=== PATIENT | female | born 1940 | race Caucasian/White ===

== ENCOUNTER → 2017-10-22 | Outpatient (CLI) | payer MEDICARE, BC, OTHER | LOC: M RAD 13:30 | DX: J34.2 Deviated nasal septum (principal) | CPT/HCPCS: 70486 ==

== ENCOUNTER → 2019-02-15 | Outpatient (CLI) | payer MEDICARE, BC, OTHER ==
--- NOTE | 2019-02-15 10:51 | REP ---
Clinical: Lung screening. History smoking. Comparison: None Technique: Axial low-dose noncontrast images from the thoracic inlet to the upper abdomen using lung screening technique. Findings: The lung green are well-aerated with very minimal scattered basilar scarring suggested as well as a very small non solid densities in the periphery of the right base up to 4 mm. No consolidation, significant nodule or mass lesion is appreciated. No pleural effusion/reaction or pneumothorax. Tracheobronchial tree is patent. Mediastinum demonstrates mild atherosclerotic changes of the coronary arteries without cardiomegaly. Impression: Lung-RADS category II. Minimal presumed basilar scarring and very small subpleural non solid densities. Management recommendations include annual low-dose CT evaluation. Electronically Signed by Be Markham MD 02/15/2019 10:42 A
== END ==
LOC: M RAD 09:42
PROVIDERS: ATTEND Internal Medicine
DX: Z12.2 Encounter for screening for malignant neoplasm of respiratory organs (principal); F17.210 Nicotine dependence, cigarettes, uncomplicated; R91.8 Other nonspecific abnormal finding of lung field; I25.10 Atherosclerotic heart disease of native coronary artery without angina pectoris

== ENCOUNTER 2020-09-18 14:11 | Inpatient (IN) | payer MEDICARE, BC, OTHER ==
[~2020-09-18] VITALS: Ht 157.5 cm; Wt 50.0 kg
[2020-09-18] MEDS ORDERED: NS 1,000 ML IV SCH (14:45)
[2020-09-18] MEDS ORDERED: ONDANSETRON 4MG/2ML VIAL IV ONE (14:45)
[2020-09-18] MEDS: MORPHINE 2 MG/ML 1ML VIAL (J2270) IV PRN ×2 (14:59→15:46)
[2020-09-18 15:07] LABS: HEMATOCRIT 43.1 % (36.0-47.0); HEMOGLOBIN 14.1 g/dl (12.0-15.5); MEAN CORPUSCULAR HGB CONC 32.7 g/dl (32.0-36.5); MEAN CORPUSCULAR VOLUME 88.7 fl (80.0-96.0); PLATELET COUNT, AUTOMATED 261 10^3/uL (150-450); RED BLOOD COUNT 4.86 10^6/uL (4.00-5.40); WHITE BLOOD COUNT 6.6 10^3/uL (4.0-10.0)
[2020-09-18 15:19] LABS: INR 1.01; PROTHROMBIN TIME 13.5 SECONDS (12.5-14.3)
[2020-09-18 15:20] LABS: PARTIAL THROMBOPLASTIN TIME 27.3 SECONDS (24.2-38.5)
--- NOTE | 2020-09-18 15:32 | REP ---
INDICATION: trauma. COMPARISON: None. TECHNIQUE: AP view of the pelvis is performed as well as AP and cross-table lateral views left hip. FINDINGS: Left femoral neck fracture is visualized with angulation and displacement. There are mild arthritic changes at both hip joints. There are scattered vascular calcifications in the soft tissues. IMPRESSION: Left femoral neck fracture. <Electronically signed by Chad Keenan > 09/18/20 0213
[2020-09-18] MEDS ORDERED: MONT5TAB2 PO (15:33)
[2020-09-18] MEDS ORDERED: METF500T13 PO (15:33)
[2020-09-18] MEDS ORDERED: HYDR12CA PO (15:33)
[2020-09-18] MEDS ORDERED: SOLI5TAB PO (15:33)
[2020-09-18] MEDS ORDERED: VITATAB74 PO (15:33)
[2020-09-18] MEDS ORDERED: MAGN200T10 PO (15:33)
[2020-09-18] MEDS ORDERED: ECOT81TA5 PO (15:33)
[2020-09-18] MEDS ORDERED: ACET650T61 PO (15:33)
[2020-09-18] MEDS ORDERED: LEVOTAB10 PO (15:33)
[2020-09-18] MEDS ORDERED: SOLI10TA PO (15:33)
--- NOTE | 2020-09-18 15:33 | REP ---
INDICATION: trauma COMPARISON: None. TECHNIQUE: AP and lateral left femur. FINDINGS: There is a left femoral neck fracture with angulation and displacement. No other acute fracture or dislocation is seen. IMPRESSION: Left femoral neck fracture. <Electronically signed by Chad Keenan > 09/18/20 [id number]
--- NOTE | 2020-09-18 15:34 | REP ---
INDICATION: pre-op. COMPARISON: None. TECHNIQUE: SINGLE PORTABLE AP VIEW OF THE CHEST WAS PERFORMED. FINDINGS: There is no acute infiltrate. There is mild cardiomegaly. There is calcification and tortuosity of the thoracic aorta. The mediastinal silhouette is otherwise unremarkable. IMPRESSION: NO ACUTE PULMONARY DISEASE. <Electronically signed by Chad Keenan > 09/18/20 [id number]
[2020-09-18 15:36] LABS: RSV AMPLIFICATION NEGATIVE (NEGATIVE)
[2020-09-18 15:42] LABS: BLOOD UREA NITROGEN 18 MG/DL (7-18); CALCIUM LEVEL 9.9 MG/DL (8.8-10.2); CARBON DIOXIDE LEVEL 28 MEQ/L (21-32); CHLORIDE LEVEL 102 MEQ/L (98-107); CK-MB VALUE MASS 1.8 NG/ML (<3.6); CPK CREATINE PHOSPHOKINASE 158 U/L (26-192); CREATININE FOR GFR 0.98 MG/DL (0.55-1.30); GLOMERULAR FILTRATION RATE 58.4 (>39); GLUCOSE, FASTING 98 MG/DL (70-100); MB/CK RELATIVE INDEX 1.14 (< OR =4); POTASSIUM SERUM 4.9 MEQ/L (3.5-5.1); SODIUM LEVEL 136 MEQ/L (136-145); TROPONIN I < 0.02 NG/ML (< 0.10)
[2020-09-18] MEDS ORDERED: GLUCOSE 4GM CHEW TABLET PO PRN (16:30)
[2020-09-18] MEDS ORDERED: GLUCAGON INJ 1MG VIAL SC PRN (16:30)
[2020-09-18] MEDS ORDERED: HumaLOG INSULIN (NovoLOG) PER UNIT SC SCH (16:30)
[2020-09-18] MEDS ORDERED: DEXTROSE 50% 50 ML SYRINGE IV PRN (16:30)
[2020-09-18] MEDS ORDERED: MORPHINE 2 MG/ML 1ML VIAL (J2270) IV PRN ×3 (16:30→22:00)
[2020-09-18] MEDS ORDERED: ALBUTEROL SULFATE 2.5 MG/0.5 ML INH NEB SOLN NEB PRN (16:30)
[2020-09-18] MEDS ORDERED: MORPHINE 4 MG/ML 1ML VIAL/SYRINGE (J2270) IV PRN (16:30)
--- OUTSIDE RECORDS SUMMARY | 2020-09-18 16:39 | CCD | Continuity of Care Document ---
Author Author Lindy CORONA Organization Unknown Address [address] [facility] [address] [place] [address] Phone [phone] Care Team Providers Care Ld Teacher Name Role Phone Zakiya Corona DO AUTM Unavailable Problems Active Problems Provider Date Type 2 diabetes mellitus Zakiya Corona DO Onset: 03/03/20 12 Hypertensive heart disease without congestive heart failure Zakiya Corona DO Onset: 03/03/2012 Hyperlipidemia Zakiya Corona DO Onset: 03/03/2012 Social History Type Date Description Comments Sex Unknown ETOH Use Rarely consumes wine Tobacco Use Start: Unknown Patient is a current smoker, smo kes every day 1 PPD X 45 YRS Allergies, Adverse Reactions, Alerts Description No Known Drug Allergies Medications Active Medications SIG Qnty Indications Ordering Provide r Date Solifenacin Succinate 10mg Tablets 1 by mouth every day 90tabs Zakiya Corona DO 02/25/2020 Shingrix 50mcg/0.5ML Suspension Re c administer 0.5 milliliters intramuscular, repeat in 2 to 6 months 2units Zakiya Corona DO 07/08/2019 Tylenol 8 Hour Arthritis Pain 650mg Tablets ER 1 by mouth as needed every 8 hours 90tabs Zakiya Corona DO 08/25/2018 Magnesium Oxide 400mg Tablets 1 by mouth every day 30tabs Zakiya Corona DO 04/15/2018 Singulair 10mg Tablets take one tablet by mouth at bedtime 90tabs Zakiya Corona DO 11/07/2017 Asc[employer]ia Autod[employer] Test Disk test daily dx: e11.9 100units Zakiya Corona DO 03/06/2017 Hydrochlorothiazide 12.5mg Capsule s take one capsule by mouth every day 90caps Zakiya Corona DO 0 11/27/2015 Aspirin 325mg Tablets 1 po qd Zakiya CoronaDO 09/06/2013 Metformin HCL 500mg Tablets take one tablet by mouth twice a day 180tabs Alyce Carvalho 11/13/2012 Vitamin D-3 1000Unit Tablets 2 po qd Zakiya CoronaDO 07/15/2012 Fluocinonide 0.05% Solution apply every day as needed 60ml Zakiya CoronaDO 07/14/2012 Levocetirizine Dihydrochloride 5mg Tablets take one tablet by mouth at bedtime 90tabs Zakiya Corona,DO 07/14/2012 Glucometer Misc use as direc julia 1units Zakiya Corona,DO 10/29/2011 Lancets Misc us e bid or as directed dx:250.00 100unradha Corona,DO 10/29/[address] take one capsule by mouth every day 90caps Zakiya CoronaDO 0000 Biotin Unknown History Medications Solifenacin Succinate 5mg Tablets 2 by mouth every day 60tabs Zakiya Corona DO 01/11/2020 - 05/2020 Medications Administered in Office Medication SIG Qnty Indications Ordering Provider Date Administration Of Flu Vaccine Inj ection Zakiya Corona,DO 06/27/2020 Administration Of Flu Vaccine Inj ection Zakiya Corona,DO 07/08/2019 Immunizations CPT Code Status Date Vaccine Lot # [id number] Given 06/27/2020 Influenza Vaccin e Quadrivalent Preser/Antibiotic Free Im Use [id number] Given 07/11/2019 Prevnar 13 [id number] Given 07/08/2019 Influenza Vaccin e Quadrivalent Preser/Antibiotic Free Im Use [id number] [id number] Given 04/15/2018 Pneumovax 23 [id number] Refused 06/22/2018 Influenza Virus Vaccine, Quadrivalent ([id number]), Derived From Cell Vital Signs Date Vital Result Comment 06/27/2020 10:43am BP Systolic 160 mmHg BP Diastolic 88 mmHg Height 62.5 inches 5'2.50" Weight 110.38 lb BMI (Body Mass Index) 19.9 kg/m2 01/11/2020 10:35am BP Systolic 132 mmHg BP Diastolic 84 mmHg Heart Rate 78 /min Height 62.5 inches 5'2.50" Weight 121.00 lb O2 % BldC Oximetry 97 % RM Air BMI (Body Mass Index) 21.8 kg/m2 Results Test Acquired Date Facility Test Result H/L Range Note Complete Blood Count 06/26/2020 [facility] Byproducts Extractor: [place] [address] [phone] WBC 4.8 x10*3/UL 4.1 - 10.9 RBC 4.53 x10*6/UL 4.20 - 6.30 Hemoglobin 13.4 g/dL 12.0 - 18.0 Hematocrit 39.0 % 37.0 - 51.0 MCV 86.1 fL 80.0 - 97.0 MCH 29.6 pg 26.0 - 32.0 MCHC 34.4 g/dL 31.0 - 38.0 RDW 13.3 % 11.6 - 13.7 PLT 285 x10*3/UL 140 - 440 MPV 7.8 FL 7.8 - 11.0 Lymph % 29.5 % 10.0 - 58.5 Mid % 7.8 % 1.7 - 9.3 Neut % 62.7 % 37.0 - 92.0 Lymph # 1.4 x10*3/UL 0.6 - 4.1 Mid # 0.4 x10*3/UL 0.1 - 0.6 Neut # 3.0 x10*3/UL 2.0 - 7.8 A1c 06/26/2020 [facility] Byproducts Extractor: [place] [address] [phone] Hba1c 5.9 % High <5.7 1 Est Avg Glucose 123 mg/dL High 60 - 110 Comprehensive Chem Profile 06/26/2020 [facility] Byproducts Extractor: [place] [address] [phone] Glucose 89 mg/dL 74 - 99 2 BUN 18 mg/dL 7 - 18 Creatinine 1.0 mg/dL 0.6 - 1.3 Sodium 142 mEq/L 136 - 145 Potassium 4.5 mEq/L 3.5 - 5.1 Chloride 102 mEq/L 98 - 107 Carbon Dioxide 32 mEq/L 21 - 32 Calcium 9.8 mg/dL 8.5 - 10.1 Alk. Phosphatase 74 mg/dL 46 - 116 Total Bilirubin 0.3 mg/dL 0.2 - 1.0 Ast (Sgot) 14 U/L Low 15 - 37 Alt (SGPT) 11 U/L Low 12 - 78 Albumin 4.0 g/dL 3.4 - 5.0 Total Protein 7.4 g/dL 6.4 - 8.2 A/G Ratio 1.18 CALC 1.00 - 1.90 GFR 54 mL/min Low >60 GFR >= 60 mL/min >60 3 Complete Blood Count 01/07/2020 [facility]lo Byproducts Extractor: [place] [address] [phone] WBC 5.6 x10*3/UL 4.1 - 10.9 RBC 4.38 x10*6/UL 4.20 - 6.30 Hemoglobin 12.4 g/dL 12.0 - 18.0 Hematocrit 37.4 % 37.0 - 51.0 MCV 85.4 fL 80.0 - 97.0 MCH 28.3 pg 26.0 - 32.0 MCHC 33.2 g/dL 31.0 - 38.0 RDW 14.0 % High 11.6 - 13.7 PLT 276 x10*3/UL 140 - 440 MPV 8.0 FL 7.8 - 11.0 Lymph % 28.3 % 10.0 - 58.5 Mid % 8.2 % 1.7 - 9.3 Neut % 63.5 % 37.0 - 92.0 Lymph # 1.5 x10*3/UL 0.6 - 4.1 Mid # 0.6 x10*3/UL 0.1 - 0.6 Neut # 3.5 x10*3/UL 2.0 - 7.8 Comprehensive Chem Profile 01/07/2020 [facility] Byproducts Extractor: [place] [address] [phone] Glucose 108 mg/dL High 74 - 99 4 BUN 21 mg/dL High 7 - 18 Creatinine 1.4 mg/dL High 0.6 - 1.3 Sodium 145 mEq/L 136 - 145 Potassium 4.4 mEq/L 3.5 - 5.1 Chloride 105 mEq/L 98 - 107 Carbon Dioxide 31 mEq/L 21 - 32 Calcium 10.0 mg/dL 8.5 - 10.1 Alk. Phosphatase 75 mg/dL 46 - 116 Total Bilirubin 0.3 mg/dL 0.2 - 1.0 Ast (Sgot) 15 U/L 15 - 37 Alt (SGPT) 14 U/L 12 - 78 Albumin 3.9 g/dL 3.4 - 5.0 Total Protein 7.4 g/dL 6.4 - 8.2 A/G Ratio 1.11 CALC 1.00 - 1.90 GFR 36 mL/min Low >60 GFR 44 mL/min Low >60 5 Lipid Profile 01/07/2020 [facility] Byproducts Extractor: [place] [address] [phone] Cholesterol 222 mg/dL High 131 - 200 Triglycerides 163 mg/dL High 30 - 150 HDL Cholesterol 47 mg/dL 35 - 60 LDL (Calculated) 142 CALC 50 - 159 Laboratory test finding 01/07/2020 [facility] Byproducts Extractor: [place] [address] [phone] Thyroid Stimulating Hormone 0.90 uIU/mL 0.3 6 - 3.74 1 Lab Result Notes: Pre-Diabetes 5.7 - 6.4 % Diabetes = or > 6.5% 2 100-125 mg/dL PRE-DIABET ES/FASTING >126 mg/dL DIABETES/FASTING 3 CHRONIC KIDNEY DISEASE STAGI NG PER NKF STAGE I & II GFR >= 60 NORMAL TO MILDLY DECREASED STAGE III GFR 30-59 MODERATELY DECREASED STAGE IV GFR 15-29 SEVERELY DECREASED STAGE V GFR <15 VERY LITTLE GFR LEFT ESRD GFR <15 ON [employer] MATE 4 100-125 mg/dL PRE-DIABET ES/FASTING >126 mg/dL DIABETES/FASTING 5 CHRONIC KIDNEY DISEASE STAGI NG PER NKF STAGE I & II GFR >= 60 NORMAL TO MILDLY DECREASED STAGE III GFR 30-59 MODERATELY DECREASED STAGE IV GFR 15-29 SEVERELY DECREASED STAGE V GFR <15 VERY LITTLE GFR LEFT ESRD GFR <15 ON [employer] MATE Procedures Date Code Description Status 02/07/2020 [id number] Mammogram Completed 04/24/2018 [id number] Mammogram Completed 07/21/2012 [id number] Bone Mineral Density Test Comple [facility] 03/11/2012 [id number] Diabetic Retinal Eye Exam Comple 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 M54.16 Radiculopathy, lumbar region R41.81 Age-related cognitive declin e Z13.89 Encounter for screening for other disorder Z23 Encounter for immunization Office Visit 01/11/2020 10:40a [facility] P[facility]ov[facility] Corona ,DO E11.9 Type 2 diabetes mellitus without complications I10 Essential (primary) hyperten shanika F17.210 Nicotine dependence, cigaret jamie, uncomplicated E78.5 Hyperlipidemia, unspecified M17.0 Bilateral primary osteoarthr itis of knee I83.93 Asymptomatic varicose veins of bilateral lower extremities M25.511 Pain in right shoulder Assessments Date Code Description Provider 06/27/2020 M17.11 Unilateral primary osteoarthriti s, right knee Zakiya Corona,DO 06/27/2020 E11.9 Type 2 diabetes mellitus without complications Zakiya Corona,DO 06/27/2020 I10 Essential (primary) hypertension Zakiya Corona,DO 06/27/2020 F17.210 Nicotine dependence, cigarettes, uncomplicated Zakiya Corona,DO 06/27/2020 E78.5 Hyperlipidemia, unspecified Avni Corona,DO 06/27/2020 I83.93 Asymptomatic varicose veins of b ilateral lower extremities Zakiya Corona,DO 06/27/2020 M54.16 Radiculopathy, lumbar region Lara Corona,DO 06/27/2020 R41.81 Age-related cognitive decline Marian Corona,DO 06/27/2020 Z13.89 Encounter for screening for othe r disorder Zakiya Corona,DO 06/27/2020 Z23 Encounter for immunization Zakiya Corona,DO 06/26/2020 E11.9 Type 2 diabetes mellitus without complications Zakiya Corona,DO 06/26/2020 E11.9 Type 2 diabetes mellitus without complications Lab Schedule 06/26/2020 I10 Essential (primary) hypertension Zakiya Corona,DO 06/26/2020 I10 Essential (primary) hypertension Lab Schedule 01/11/2020 E11.9 Type 2 diabetes mellitus without complications Zakiya Corona,DO 01/11/2020 I10 Essential (primary) hypertension Zakiya Corona,DO 01/11/2020 F17.210 Nicotine dependence, cigarettes, uncomplicated Zakiya Corona,DO 01/11/2020 E78.5 Hyperlipidemia, unspecified Avni shilpi Corona,DO 01/11/2020 M17.0 Bilateral primary osteoarthritis of knee Zakiya oCrona,DO 01/11/2020 I83.93 Asymptomatic varicose veins of b ilateral lower extremities Zakiya Corona,DO 01/11/2020 M25.511 Pain in right shoulder Zakiya John bobo,DO 01/07/2020 I10 Essential (primary) hypertension Zakiya Jcarlos,DO 01/07/2020 I10 Essential (primary) hypertension Lab Schedule 01/07/2020 E11.9 Type 2 diabetes mellitus without complications Zakiya Corona,DO 01/07/2020 E11.9 Type 2 diabetes mellitus without complications Lab Schedule 01/07/2020 E78.5 Hyperlipidemia, unspecified Avni shilpi Jcarlos,DO 01/07/2020 E78.5 Hyperlipidemia, unspecified Lab Schedule Plan of Treatment Future Appointment(s):* 12/27/2020 10:40 am - Lab Schedule at [facility] * 12/28/2020 10:40 am - Zakiya Corona DO at [facility] 06/27/2020 - Zakiya Corona DO* M17.11 Unilateral primary osteoarthritis, right knee * E11.9 Type 2 diabetes mellitus without complications * I10 Essential (primary) hypertension * F17.210 Nicotine dependence, cigarettes, uncomplicated * E78.5 Hyperlipidemia, unspecified * I83.93 Asymptomatic varicose veins of bilateral lower extremities * M54.16 Radiculopathy, lumbar region * R41.81 Age-related cognitive decline * Z13.89 Encounter for screening for other disorder * Z23 Encounter for immunization Functional Status Description No Information Available Mental Status Description No Information Available Referrals Refer to Reason for Referral Status Appt Date [facility] CONSULT FOR RT SHOULDER PAIN Cl osed 01/31/2020 [address] [id number] [phone]
--- OUTSIDE RECORDS SUMMARY | 2020-09-18 16:39 | CCD | Continuity of Care Document ---
Author Author Lindy CORONA Organization Unknown Address [address] [facility] [address] [place] [address] Phone [phone] Care Team Providers Care Retail Aide Name Role Phone Zakiya Corona DO AUTM [...] Aspirin 325mg Tablets 1 po qd Zakiya CroonaDO 09/06/2013 Metformin HCL 500mg Tablets take one tablet by mouth twice a day 180tabs Alyce Carvalho 11/13/2012 Vitamin D-3 1000Unit Tablets 2 po qd Zakiya CoronaDO 07/15/2012 Fluocinonide 0.05% Solution apply every day as needed 60ml Zakiya CoronaDO 07/14/2012 Levocetirizine Dihydrochloride 5mg Tablets take one tablet by mouth at bedtime 90tabs Zakiya CoronaDO 07/14/2012 Glucometer Misc use as direc julia 1units Zakiya Corona,DO 10/29/2011 Lancets Misc us e bid or as directed dx:250.00 100unradha CoronaDO 10/29/[address] take one capsule by mouth every day 90caps Zakiya CoronaDO 0000 Biotin Unknown History Medications Solifenacin Succinate 5mg Tablets 2 by mouth every day 60tabs Zakiya Corona DO 01/11/2020 - 05/2020 Medications Administered in Office Medication SIG Qnty Indications Ordering Provider Date Administration Of Flu Vaccine Inj ection Zakiyashilpi CoronaDO 07/08/2019 Immunizations CPT Code Status Date Vaccine Lot # [id number] Given 06/27/2020 Influenza Vaccin e Quadrivalent Preser/Antibiotic Free Im Use [id number] [id number] Given 07/11/2019 Prevnar 13 85854 Given 07/08/2019 Influenza Vaccin e Quadrivalent Preser/Antibiotic Free Im Use [id number] Given 04/15/2018 Pneumovax 23 [id number] Refused 06/22/2018 Influenza Virus Vaccine, Quadrivalent (Cciiv4), [...] H/L Range Note Complete Blood Count 06/26/2020 [facility] Dental Laboratory Technician Apprentice: [place] [address] [phone] WBC 4.8 x10*3/UL 4.1 - 10.9 RBC [...] 3.0 x10*3/UL 2.0 - 7.8 A1c 06/26/2020 [facility] Dental Laboratory Technician Apprentice: [place] [address] [phone] Hba1c 5.9 % High <5.7 1 Est Avg Glucose 123 mg/dL High 60 - 110 Comprehensive Chem Profile 06/26/2020 [facility] Dental Laboratory Technician Apprentice: [place] [address] [phone] Glucose 89 mg/dL 74 - 99 2 [...] mL/min >60 3 Complete Blood Count 01/07/2020 [facility] Dental Laboratory Technician Apprentice: [place] [address] [phone] WBC 5.6 x10*3/UL 4.1 - 10.9 RBC [...] 2.0 - 7.8 Comprehensive Chem Profile 01/07/2020 [facility] Dental Laboratory Technician Apprentice: [place] [address] [phone] Glucose 108 mg/dL High 74 - 99 [...] mL/min Low >60 5 Lipid Profile 01/07/2020 [facility] Laboratory Technician Apprentice: [place] [address] [phone] Cholesterol 222 mg/dL High 131 - 200 Triglycerides 163 mg/dL High 30 - 150 HDL Cholesterol 47 mg/dL 35 - 60 LDL (Calculated) 142 CALC 50 - 159 Laboratory test finding 01/07/2020 [facility] Dental Laboratory Technician Apprentice: [place] [address] [phone] Thyroid Stimulating Hormone 0.90 uIU/mL 0.3 6 [...] LITTLE GFR LEFT ESRD GFR <15 ON [employer] CONSULT[employer] 4 100-125 mg/dL PRE-DIABET ES/FASTING >126 mg/dL DIABETES/FASTING 5 CHRONIC KIDNEY DISEASE STAGI NG PER NKF STAGE I & II GFR >= 60 NORMAL TO MILDLY DECREASED STAGE III GFR 30-59 MODERATELY DECREASED STAGE IV GFR 15-29 SEVERELY DECREASED STAGE V GFR <15 VERY LITTLE GFR LEFT ESRD GFR <15 ON [employer] CONSULTANT Procedures Date Code Description Status 02/07/2020 [id number] Mammogram Completed 04/24/2018 [id number] Mammogram Completed 07/21/2012 [id number] Bone Mineral Density Test [facility] 03/11/2012 [id number] Diabetic Retinal Eye Exam [facility] 10/04/2011 [id number] Mammogram Completed 05/20/2007 [id number] Bone Mineral Density Test [facility] 09/08/2003 [id number] Colonoscopy Completed Medical Devices Description No Information Available Encounters Type Date Location Provider Dx Diagnosis Office Visit 01/11/2020 10:40a [facility] Zakiya Corona ,DO E11.9 Type 2 diabetes mellitus [...] Type 2 diabetes mellitus without complications Zakiya Jcarlos,DO 06/27/2020 I10 Essential (primary) hypertension Zakiya Corona,DO 06/27/2020 F17.210 Nicotine dependence, cigarettes, uncomplicated Zakiya Corona,DO 06/27/2020 E78.5 Hyperlipidemia, unspecified Avni a Jcarlos,DO 06/27/2020 I83.93 Asymptomatic varicose veins of b ilateral lower extremities Zakiya Corona,DO 06/27/2020 M54.16 Radiculopathy, lumbar region Bermudez Jcarlos,DO 06/27/2020 R41.81 Age-related cognitive decline Marian archie Corona,DO 06/26/2020 E11.9 Type 2 diabetes mellitus [...] Zakiya Corona,DO 01/11/2020 E78.5 Hyperlipidemia, unspecified Avni a Jcarlos,DO 01/11/2020 M17.0 Bilateral primary osteoarthritis of knee Zakiya Jcarlos,DO 01/11/2020 I83.93 Asymptomatic varicose veins of b ilateral lower extremities Zakiyashilpi Corona,DO 01/11/2020 M25.511 Pain in right shoulder Zakiya bobo DO 01/07/2020 I10 Essential (primary) hypertension Zakiya Corona DO 01/07/2020 I10 Essential (primary) hypertension Lab Schedule 01/07/2020 E11.9 Type 2 diabetes mellitus without complications Zakiya Corona DO 01/07/2020 E11.9 Type 2 diabetes mellitus without complications Lab Schedule 01/07/2020 E78.5 Hyperlipidemia, unspecified Avni Corona DO 01/07/2020 E78.5 Hyperlipidemia, unspecified Lab Schedule Plan of Treatment Future Appointment(s):* 12/27/2020 10:40 am - Lab Schedule at [facility] * 12/28/2020 10:40 am - Zakiya Corona DO at [facility] 06/27/2020 - Zakiya Corona DO* M17.11 Unilateral primary osteoarthritis, right knee * E11.9 Type 2 diabetes mellitus without complications * I10 Essential (primary) hypertension * F17.210 Nicotine dependence, cigarettes, uncomplicated * E78.5 Hyperlipidemia, unspecified * I83.93 Asymptomatic varicose veins of bilateral lower extremities * M54.16 Radiculopathy, lumbar region * R41.81 Age-related cognitive decline Functional Status Description No Information Available Mental Status Description No Information Available Referrals Refer to Reason for Referral Status Appt Date [facility] CONSULT FOR RT SHOULDER PAIN Cl osed 01/31/2020 [address] [place] [address] [phone]
--- OUTSIDE RECORDS SUMMARY | 2020-09-18 16:39 | CCD | Continuity of Care Document ---
Author Author Lab Schedule, Lindy Diallo Organization Unknown Address [address] [address] Phone Unavailable Care Team Providers Care Hat Former Name Role Phone Zakiya Garber DO AUTM Unavailable Problems Active Problems Provider Date Type 2 diabetes mellitus Zakiya Garber DO Onset: 03/03/20 12 Hypertensive heart disease without congestive heart failure Zakiya Garber DO Onset: 03/03/2012 Hyperlipidemia Zakiya Garber DO Onset: 03/03/2012 Social History Type Date [...] 1 by mouth every day 90tabs Zakiya Garber DO 02/25/2020 Shingrix 50mcg/0.5ML Suspension Re c administer 0.5 milliliters intramuscular, repeat in 2 to 6 months 2units Zakiya Garber DO 07/08/2019 Tylenol 8 Hour Arthritis Pain 650mg Tablets ER 1 by mouth as needed every 8 hours 90tabs Zakiya Garber DO 08/25/2018 Magnesium Oxide 400mg Tablets 1 by mouth every day 30tabs Zakiya Garber DO 04/15/2018 Singulair 10mg Tablets take one tablet by mouth at bedtime 90tabs Zakiya Garber DO 11/07/2017 Ascensia Autodisc Test Disk test daily dx: e11.9 100units Zakiya Garber, 03/06/2017 Hydrochlorothiazide 12.5mg Capsule s take one capsule by mouth every day 90caps Zakiya Garber DO 0 11/27/2015 Aspirin 325mg Tablets 1 po qd Zakiya Garber DO 09/06/2013 Metformin HCL 500mg Tablets take one tablet by mouth twice a day 180tabs Alyce Carvalho 11/13/2012 Vitamin D-3 1000Unit Tablets 2 po qd Zakiya Garber DO 07/15/2012 Fluocinonide 0.05% Solution apply every day as needed 60ml Zakiya Garber DO 07/14/2012 Levocetirizine Dihydrochloride 5mg Tablets take one tablet by mouth at bedtime 90tabs Zakiya Garber DO 07/14/2012 Glucometer Misc use as direc julia 1unradha Garber,DO 10/29/2011 Lancets Misc us e bid or as directed dx:250.00 100unradha GarberDO 10/29/[address] take one capsule by mouth every day 90caps Zakiya GarberDO 00 /0000 Biotin Unknown History Medications Solifenacin Succinate 5mg Tablets 2 by mouth every day 60tabs Zakiya Garber DO 01/11/2020 - 05/2020 Medications Administered in Office Medication SIG Qnty Indications Ordering Provider Date Administration Of Flu Vaccine Inj ection Zakiya Garber DO 07/08/2019 Immunizations CPT Code Status Date Vaccine Lot # [id number] Given 06/27/2020 Influenza Vaccin e Quadrivalent Preser/Antibiotic Free Im Use [id number] Given 07/11/2019 Prevnar 13 52763 Given 07/08/2019 Influenza Vaccin e Quadrivalent Preser/Antibiotic Free Im Use [id number] [id number] Given 04/15/2018 Pneumovax 23 [id number] Refused 06/22/2018 Influenza Virus Vaccine, Quadrivalent (Cciiv4), [...] H/L Range Note Complete Blood Count 06/26/2020 [facility] Gas Turbine Assembler: [place] [address] [phone] WBC 4.8 x10*3/UL 4.1 - 10.9 RBC [...] 3.0 x10*3/UL 2.0 - 7.8 A1c 06/26/2020 [facility] , Gas Turbine Assembler: [place] [address] [phone] Hba1c 5.9 % High <5.7 1 Est Avg Glucose 123 mg/dL High 60 - 110 Comprehensive Chem Profile 06/26/2020 [facility] Gas Turbine Assembler: [place] [address] [phone] Glucose 89 mg/dL 74 - 99 2 [...] mL/min >60 3 Complete Blood Count 01/07/2020 [facility] ben[facility] diallo Gas Turbine Assembler: Dr Rohan Saldana [place], [place] [id number] [phone] WBC 5.6 x10*3/UL 4.1 - 10.9 RBC [...] 2.0 - 7.8 Comprehensive Chem Profile 01/07/2020 [facility] Gas Turbine Assembler: [place] [address] [phone] Glucose 108 mg/dL High 74 - 99 [...] mL/min Low >60 5 Lipid Profile 01/07/2020 [facility] Gas Turbine Assembler: Dr Rohan Saldana [place], [place] [id number] [phone] Cholesterol 222 mg/dL High 131 - 200 Triglycerides 163 mg/dL High 30 - 150 HDL Cholesterol 47 mg/dL 35 - 60 LDL (Calculated) 142 CALC 50 - 159 Laboratory test finding 01/07/2020 [facility] Gas Turbine Assembler: Dr Rohan Saldana [place], [place] [id number] [phone] Thyroid Stimulating Hormone 0.90 uIU/mL 0.3 6 [...] LITTLE GFR LEFT ESRD GFR <15 ON PATIENT ACCOUNT REPRESENTATIVE 4 100-125 mg/dL PRE-DIABET ES/FASTING >126 mg/dL DIABETES/FASTING 5 CHRONIC KIDNEY DISEASE STAGI NG PER NKF STAGE I & II GFR >= 60 NORMAL TO MILDLY DECREASED STAGE III GFR 30-59 MODERATELY DECREASED STAGE IV GFR 15-29 SEVERELY DECREASED STAGE V GFR <15 VERY LITTLE GFR LEFT ESRD GFR <15 ON PATIENT ACCOUNT REPRESENTATIVE Procedures Date Code Description Status 02/07/2020 [id number] Mammogram Completed 04/24/2018 [id number] Mammogram Completed 07/21/2012 [id number] Bone Mineral Density Test [facility]ple [facility] 03/11/2012 [id number] Diabetic Retinal Eye Exam [facility] 10/04/2011 [id number] Mammogram Completed 05/20/2007 [id number] Bone Mineral Density Test [facility] 09/08/2003 [id number] Colonoscopy Completed Medical Devices Description No Information Available Encounters Type Date Location Provider Dx Diagnosis Office Visit 01/11/2020 10:40a [facility] Zakiya Garber ,DO E11.9 Type 2 diabetes mellitus without complications I10 Essential (primary) hyperten shanika F17.210 Nicotine dependence, cigaret jamie, uncomplicated E78.5 Hyperlipidemia, unspecified M17.0 Bilateral primary osteoarthr itis of knee I83.93 Asymptomatic varicose veins of bilateral lower extremities M25.511 Pain in right shoulder Assessments Date Code Description Provider 06/27/2020 M17.11 Unilateral primary osteoarthriti s, right knee Zakiya Garber,DO 06/27/2020 E11.9 Type 2 diabetes mellitus without complications Zakiya Garber,DO 06/27/2020 I10 Essential (primary) hypertension Zakiya Garber,DO 06/27/2020 F17.210 Nicotine dependence, cigarettes, uncomplicated Zakiya Garber,DO 06/27/2020 E78.5 Hyperlipidemia, unspecified Avni a Jcarlos,DO 06/27/2020 I83.93 Asymptomatic varicose veins of b ilateral lower extremities Zakiya Garber,DO 06/27/2020 M54.16 Radiculopathy, lumbar region Bermudez ra Garber,DO 06/27/2020 R41.81 Age-related cognitive decline La archie Garber,DO 06/26/2020 E11.9 Type 2 diabetes mellitus without complications Zakiya Garber,DO 06/26/2020 E11.9 Type 2 diabetes mellitus without complications Lab Schedule 06/26/2020 I10 Essential (primary) hypertension Zakiya Garber,DO 06/26/2020 I10 Essential (primary) hypertension Lab Schedule 01/11/2020 E11.9 Type 2 diabetes mellitus without complications Zakiya Garber,DO 01/11/2020 I10 Essential (primary) hypertension Zakiya Garber,DO 01/11/2020 F17.210 Nicotine dependence, cigarettes, uncomplicated Zakyia Garber,DO 01/11/2020 E78.5 Hyperlipidemia, unspecified Avni a Jcarlos,DO 01/11/2020 M17.0 Bilateral primary osteoarthritis of knee Zakiya Garber,DO 01/11/2020 I83.93 Asymptomatic varicose veins of b ilateral lower extremities Zakiya Garber,DO 01/11/2020 M25.511 Pain in right shoulder Zakiyashilpi bobo,DO 01/07/2020 I10 Essential (primary) hypertension Zakiya Garber DO 01/07/2020 I10 Essential (primary) hypertension Lab Schedule 01/07/2020 E11.9 Type 2 diabetes mellitus without complications Zakiya Garber DO 01/07/2020 E11.9 Type 2 diabetes mellitus without complications Lab Schedule 01/07/2020 E78.5 Hyperlipidemia, unspecified Avni Garber DO 01/07/2020 E78.5 Hyperlipidemia, unspecified Lab Schedule Plan of Treatment Future Appointment(s):* 12/27/2020 10:40 am - Lab Schedule at [facility] * 12/28/2020 10:40 am - Zakiya Garber DO at [facility] 06/27/2020 - Zakiya Garber DO* M17.11 Unilateral primary osteoarthritis, right knee [...] Description No Information Available Referrals Refer to Dr Reason for Referral Status Appt Date [facility] CONSULT FOR RT SHOULDER PAIN Cl osed 01/31/2020 [address] [place] [address] [phone]
--- OUTSIDE RECORDS SUMMARY | 2020-09-18 16:40 | CCD | Continuity of Care Document ---
Author Author Nurse #2Lindy Organization Unknown Address [address] [facility] [address] [place] [address] Phone Unavailable Care Team Providers Care Tar Boiler Name Role Phone Zakiya Garber DO AUTM [...] Disk test daily dx: e11.9 100units Zakiya Garber DO 03/06/2017 Hydrochlorothiazide 12.5mg Capsule s take one capsule by mouth every day 90caps Zakiya Garber DO 0 11/27/2015 Aspirin 325mg Tablets 1 po qd Zakiya Garber DO 09/06/2013 Metformin HCL 500mg Tablets take one tablet by mouth twice a day 180tabs Alyce Carvalho 11/13/2012 Vitamin D-3 1000Unit Tablets 2 po qd Zakiya JcarlosDO 07/15/2012 Fluocinonide 0.05% Solution apply every day as needed 60ml Zakiya GarberDO 07/14/2012 Levocetirizine Dihydrochloride 5mg Tablets take one tablet by mouth at bedtime 90tabs Zakiya Garber,DO 07/14/2012 Glucometer Misc use as direc julia 1units Zakiyashilpi Garber,DO 10/29/2011 Lancets Misc us e bid or as directed dx:250.00 100unradha Garber,DO 10/29/[address] take one capsule by mouth every day 90caps Zakiya Garber,DO 00 Biotin Unknown History Medications Solifenacin Succinate 5mg Tablets 2 by mouth every day 60tabs Zakiya Garber DO 01/11/2020 - 05/2020 Medications Administered in Office Medication SIG Qnty Indications Ordering Provider Date Administration Of Flu Vaccine Inj ection Zakiya JcarlosDO 07/08/2019 Immunizations CPT Code Status Date Vaccine Lot # [id number] Given 07/11/2019 Prevnar 13 55632 Given 07/08/2019 Influenza Vaccin e Quadrivalent Preser/Antibiotic Free Im Use [id number] [id number] Given 04/15/2018 Pneumovax 23 [id number] Refused 06/22/2018 Influenza Virus Vaccine, Quadrivalent (Cciiv4), [...] H/L Range Note Complete Blood Count 06/26/2020 [facility] Vault Manager: Dr Rohan [place], [place] [id number] [phone] WBC 4.8 x10*3/UL 4.1 - 10.9 RBC [...] 3.0 x10*3/UL 2.0 - 7.8 A1c 06/26/2020 [facility] , Vault Manager: [place] [address] [phone] Hba1c 5.9 % High <5.7 1 Est Avg Glucose 123 mg/dL High 60 - 110 Comprehensive Chem Profile 06/26/2020 [facility], Vault Manager: [place] [address] [phone] Glucose 89 mg/dL 74 - 99 2 [...] mL/min >60 3 Complete Blood Count 01/07/2020 [facility] benita diallo Vault Manager: [place] [address] [phone] WBC 5.6 x10*3/UL 4.1 - 10.9 RBC [...] 2.0 - 7.8 Comprehensive Chem Profile 01/07/2020 [facility] Vault Manager: [place] [address] [phone] Glucose 108 mg/dL High 74 - 99 [...] mL/min Low >60 5 Lipid Profile 01/07/2020 [facility] Vault Manager: Dr Rohan [place] [id number] [phone] Cholesterol 222 mg/dL High 131 - 200 Triglycerides 163 mg/dL High 30 - 150 HDL Cholesterol 47 mg/dL 35 - 60 LDL (Calculated) 142 CALC 50 - 159 Laboratory test finding 01/07/2020 [facility] benita Vault Manager: Dr [place] [address] [phone] Thyroid Stimulating Hormone 0.90 uIU/mL 0.3 6 [...] LITTLE GFR LEFT ESRD GFR <15 ON KNOCKDOWN WORKER 4 100-125 mg/dL PRE-DIABET ES/FASTING >126 mg/dL DIABETES/FASTING 5 CHRONIC KIDNEY DISEASE STAGI NG PER NKF STAGE I & II GFR >= 60 NORMAL TO MILDLY DECREASED STAGE III GFR 30-59 MODERATELY DECREASED STAGE IV GFR 15-29 SEVERELY DECREASED STAGE V GFR <15 VERY LITTLE GFR LEFT ESRD GFR <15 ON KNOCKDOWN WORKER Procedures Date Code Description Status 02/07/2020 [id number] Mammogram Completed 04/24/2018 [id number] Mammogram Completed 07/21/2012 [id number] Bone Mineral Density Test Comple [facility] 03/11/2012 [id number] Diabetic Retinal Eye Exam Comple [facility] 10/04/2011 [id number] Mammogram Completed 05/20/2007 [id number] Bone Mineral Density Test Comple [facility] 09/08/2003 [id number] Colonoscopy Completed Medical Devices Description No Information Available Encounters Type Date Location Provider Dx Diagnosis Office Visit 01/11/2020 10:40a [facility] Zakiya Lopezgs ,DO E11.9 Type 2 diabetes mellitus without complications I10 Essential (primary) hyperten shanika F17.210 Nicotine dependence, cigaret jamie, uncomplicated E78.5 Hyperlipidemia, unspecified M17.0 Bilateral primary osteoarthr itis of knee I83.93 Asymptomatic varicose veins of bilateral lower extremities M25.511 Pain in right shoulder Assessments Date Code Description Provider 01/11/2020 E11.9 Type 2 diabetes mellitus without complications Zakiya Jcarlos,DO 01/11/2020 I10 Essential (primary) hypertension Zakiyashilpi Garber,DO 01/11/2020 F17.210 Nicotine dependence, cigarettes, uncomplicated Zakiyashilpi Garber,DO 01/11/2020 E78.5 Hyperlipidemia, unspecified Avni a Jcarlos,DO 01/11/2020 M17.0 Bilateral primary osteoarthritis of knee Zakiya Jcarlos,DO 01/11/2020 I83.93 Asymptomatic varicose veins of b ilateral lower extremities Zakiya Jcarlos,DO 01/11/2020 M25.511 Pain in right shoulder Zakiya bobo,DO 01/07/2020 I10 Essential (primary) hypertension Zakiya Garber,DO 01/07/2020 I10 Essential (primary) hypertension Lab Schedule 01/07/2020 E11.9 Type 2 diabetes mellitus without complications Zakiya Jcarlos,DO 01/07/2020 E11.9 Type 2 diabetes mellitus without complications Lab Schedule 01/07/2020 E78.5 Hyperlipidemia, unspecified Avni a Jcarlos,DO 01/07/2020 E78.5 Hyperlipidemia, unspecified Lab Schedule Plan of Treatment No Information Available Functional Status Description No Information Available Mental Status Description No Information Available Referrals Refer to Dr Reason for Referral Status Appt Date [facility] CONSULT FOR RT SHOULDER PAIN Cl osed 01/31/2020 [address] [place], [place] [id number] [phone]
--- OUTSIDE RECORDS SUMMARY | 2020-09-18 16:40 | CCD | Continuity of Care Document ---
Author Author Lab Schedule, Lindy Gar Organization Unknown Address [address] [address] Phone Unavailable Care Team Providers Care Hotel Superintendent Name Role Phone Zakiya Garber DO AUTM [...] every day 90tabs Zakiya Garber DO 02/25/2020 Prevnar 13 Suspension 0.5 cubic centimeters x 1 1units Zakiya Garber DO 07/08/2019 Shingrix 50mcg/0.5ML Suspension Re c administer 0.5 [...] Garber DO 03/06/2017 Hydrochlorothiazide 12.5mg Capsule s Take One Capsule By Mouth Every Day 90caps Zakiya GarberDO 0 11/27/2015 Aspirin 325mg Tablets 1 po qd Zakiyashilpi GarberDO 09/06/2013 Metformin HCL 500mg Tablets Take One Tablet By Mouth Twice A Day 180tabs Alyce Carvalho 11/13/2012 Vitamin D-3 1000Unit Tablets 2 po qd Zakiya GarberDO 07/15/2012 Fluocinonide 0.05% Solution apply every day as needed 60ml Zakiya GarberDO 07/14/2012 Levocetirizine Dihydrochloride 5mg Tablets Take One Tablet By Mouth AT Bedtime 90tabs Zakiya GarberDO 07/14/2012 Glucometer Misc use as direc julia 1units Zakiya Garber,DO 10/29/2011 Lancets Misc us e bid or as directed dx:250.00 100units Zakiya GarberDO 10/29/[address] Take One Capsule By Mouth Every Day 90caps Zakiya Garber,DO /0000 History Medications Solifenacin Succinate 5mg Tablets 2 by mouth every day 60tabs Zakiya Garber DO 01/11/2020 - 05/2020 Medications Administered in Office Medication SIG Qnty Indications Ordering Provider Date Administration Of Flu Vaccine Inj ection Zakiya Garber DO 07/08/2019 Immunizations CPT Code Status Date Vaccine Lot # [id number] Given 07/11/2019 Prevnar 13 [id number] Given 07/08/2019 Influenza Vaccin e Quadrivalent Preser/Antibiotic Free Im Use [id number] [id number] Given 04/15/2018 Pneumovax 23 [id number] Refused 06/22/2018 Influenza Virus Vaccine, Quadrivalent (Cciiv4), Derived From Cell Vital Signs Date Vital Result Comment 01/11/2020 10:35am BP Systolic 132 mmHg BP Diastolic 84 mmHg Heart Rate 78 /min Height 62.5 inches 5'2.50" Weight 121.00 lb O2 % BldC Oximetry 97 % RM Air BMI (Body Mass Index) 21.8 kg/m2 07/08/2019 10:03am BP Systolic 130 mmHg BP Diastolic 88 mmHg Height 62.5 inches 5'2.50" Weight 129.00 lb BMI (Body Mass Index) 23.2 kg/m2 Results Test Acquired Date Facility Test Result H/L Range Note Complete Blood Count 01/07/2020 [facility] Automobile Rental Agent: Dr Rohan Saldana [place], [place] [id number] [phone] WBC 5.6 x10*3/UL 4.1 - 10.9 RBC [...] 2.0 - 7.8 Comprehensive Chem Profile 01/07/2020 [facility] Automobile Rental Agent: Dr Rohan Saldana [place], [place] [id number] [phone] Glucose 108 mg/dL High 74 - 99 1 BUN 21 mg/dL High 7 - 18 [...] Low >60 GFR 44 mL/min Low >60 2 Lipid Profile 01/07/2020 [facility] Automobile Rental Agent: [place] [address] [phone] Cholesterol 222 mg/dL High 131 - 200 Triglycerides 163 mg/dL High 30 - 150 HDL Cholesterol 47 mg/dL 35 - 60 LDL (Calculated) 142 CALC 50 - 159 Laboratory test finding 01/07/2020 [facility] Automobile Rental Agent: [place] [address] [phone] Thyroid Stimulating Hormone 0.90 uIU/mL 0.3 6 - 3.74 1 100-125 mg/dL PRE-DIABET ES/FASTING >126 mg/dL DIABETES/FASTING 2 CHRONIC KIDNEY DISEASE STAGI NG PER NKF STAGE I & II GFR >= 60 NORMAL TO MILDLY DECREASED STAGE III GFR 30-59 MODERATELY DECREASED STAGE IV GFR 15-29 SEVERELY DECREASED STAGE V GFR <15 VERY LITTLE GFR LEFT ESRD GFR <15 ON PAPER MAKER Procedures Date Code Description Status 02/07/2020 [id number] Mammogram Completed 04/24/2018 [id number] Mammogram Completed 07/21/2012 [id number] Bone Mineral Density Test [facility]ple [facility] 03/11/2012 [id number] Diabetic Retinal Eye Exam [facility]ple [facility] 10/04/2011 [id number] Mammogram Completed 05/20/2007 [id number] Bone Mineral Density Test [facility]ple [facility] 09/08/2003 [id number] Colonoscopy Completed Medical Devices Description No Information Available Encounters Type Date Location Provider Dx Diagnosis Office Visit 01/11/2020 10:40a [facility] Zakiya Garber DO E11.9 Type 2 diabetes mellitus without complications I10 Essential (primary) hyperten shanika F17.210 Nicotine dependence, cigaret jamie, uncomplicated E78.5 Hyperlipidemia, unspecified M17.0 Bilateral primary osteoarthr itis of knee I83.93 Asymptomatic varicose veins of bilateral lower extremities M25.511 Pain in right shoulder Assessments Date Code Description Provider 01/11/2020 E11.9 Type 2 diabetes mellitus without complications Zakiya Garber DO 01/11/2020 I10 Essential (primary) hypertension Zakiya Garber DO 01/11/2020 F17.210 Nicotine dependence, cigarettes, uncomplicated Zakiya Garber DO 01/11/2020 E78.5 Hyperlipidemia, unspecified Avni Garber DO 01/11/2020 M17.0 Bilateral primary osteoarthritis of knee Zakiya Jcarlos, 01/11/2020 I83.93 Asymptomatic varicose veins of b ilateral lower extremities Zakiya Garber DO 01/11/2020 M25.511 Pain in right shoulder Zakiya bobo DO 01/07/2020 I10 Essential (primary) hypertension Zakiya Garber, 01/07/2020 I10 Essential (primary) hypertension Lab Schedule 01/07/2020 E11.9 Type 2 diabetes mellitus without complications Zakiya Garber, 01/07/2020 E11.9 Type 2 diabetes mellitus without complications Lab Schedule 01/07/2020 E78.5 Hyperlipidemia, unspecified Avni Garber, 01/07/2020 E78.5 Hyperlipidemia, unspecified Lab Schedule Plan of Treatment Future Appointment(s):* 06/27/2020 10:40 am - Nurse #2 at [facility] * 06/27/2020 11:00 am - Zakiya Garber DO at [facility] 01/11/2020 - Zakiya Garber DO* E11.9 Type 2 diabetes mellitus without complications * I10 Essential (primary) hypertension * F17.210 Nicotine dependence, cigarettes, uncomplicated * E78.5 Hyperlipidemia, unspecified * M17.0 Bilateral primary osteoarthritis of knee * I83.93 Asymptomatic varicose veins of bilateral lower extremities * M25.511 Pain in right shoulder * All * New Medication:* Solifenacin Succinate 5 mg - 2 by mouth every day Functional Status Description No Information Available Mental Status Description No Information Available Referrals Refer to Dr Reason for Referral Status Appt Date [facility] CONSULT FOR RT SHOULDER PAIN Cl osed 01/31/2020 [address] [place], [place] [id number] [phone]
--- OUTSIDE RECORDS SUMMARY | 2020-09-18 16:40 | CCD ---
Author Author [facility] Organization [facility] Address Unknown Phone Unavailable Care Team Providers Care Textile Artist Name Role Phone Jcarlos, Zakiya DO Unavailable Unavailable Jcarlos, Zakiya DO Unavailable Unavailable Jcarlos, Zakiya DO Unavailable Unavailable Jcarlos, Zakiya DO Unavailable Unavailable Jcarlos, Zakiya DO Unavailable Unavailable Jcarlos, Zakiya DO Unavailable Unavailable Jcarlos, Zakiya DO Unavailable Unavailable Jcarlos, Zakiya DO Unavailable Unavailable Jcarlos, Zakiya DO Unavailable Unavailable Jcarlos, Zakiya DO Unavailable Unavailable Jcarlos, Zakiya DO Unavailable Unavailable Jcarlos, Zakiya DO Unavailable Unavailable Jcarlos, Zakiya DO Unavailable Unavailable Jcarlos, Zakiya DO Unavailable Unavailable Jcarlos, Zakiya DO Unavailable Unavailable Jcarlos, Zakiya DO Unavailable Unavailable Jcarlos, Zakiya DO Unavailable Unavailable Jcarlos, Zakiya DO Unavailable Unavailable Jcarlos, Zakiya DO Unavailable Unavailable Jcarlos, Zakiya DO Unavailable Unavailable Jcarlos, Zakiya DO Unavailable Unavailable Jcarlos, Zakiya DO Unavailable Unavailable Jcarlos, Zakiya DO Unavailable Unavailable Jcarlos, Zakiya DO Unavailable Unavailable Jcarlos, Zakiya DO Unavailable Unavailable Jcarlos, Zakiya DO Unavailable Unavailable Jcarlos, Zakiya DO Unavailable Unavailable Jcarlos, Zakiya DO Unavailable Unavailable Jcarlos, Zakiya DO Unavailable Unavailable Jcarlos, Zakiya DO Unavailable Unavailable Jcarlos, Zakiya DO Unavailable Unavailable Jcarlos, Zakiya DO Unavailable Unavailable Jcarlos, Zakiya DO Unavailable Unavailable Jcarlos, Zakiya DO Unavailable Unavailable Jcarlos, Zakiya DO Unavailable Unavailable Jcarlos, Zakiya DO Unavailable Unavailable Jcarlos, Zakiya DO Unavailable Unavailable Jcarlos, Zakiya DO Unavailable Unavailable Jcarlos, Zakiya DO Unavailable Unavailable Jcarlos, Zakiya DO Unavailable Unavailable Jcarlos, Zakiya DO Unavailable Unavailable Jcarlos, Zakiya DO Unavailable Unavailable Jcarlos, Zakiya DO Unavailable Unavailable Jcarlos, Zakiya DO Unavailable Unavailable Jcarlos, Zakiya DO Unavailable Unavailable Jcarlos, Zakiya DO Unavailable Unavailable Jcarlos, Zakiya DO Unavailable Unavailable Jcarlos, Zakiya DO Unavailable Unavailable Jcarlos, Zakiya DO Unavailable Unavailable Jcarlos, Zakiya DO Unavailable Unavailable Jcarlos, Zakiya DO Unavailable Unavailable Jcarlos, Zakiya DO Unavailable Unavailable Jcarlos, Zakiya DO Unavailable Unavailable Jcarlos, Zakiya DO Unavailable Unavailable Jcarlos, Zakiya DO Unavailable Unavailable Jcarlos, Zakiya DO Unavailable Unavailable Jcarlos, Zakiya DO Unavailable Unavailable Jcarlos, Zakiya DO Unavailable Unavailable Jcarlos, Zakiya DO Unavailable Unavailable Jcarlos, Zakiya DO Unavailable Unavailable Jcarlos, Zakiya DO Unavailable Unavailable Jcarlos, Zakiya DO Unavailable Unavailable Jcarlos, Zakiya DO Unavailable Unavailable Jcarlos, Zakiya DO Unavailable Unavailable Jcarlos, Zakiya DO Unavailable Unavailable Jcarlos, Zakiya DO Unavailable Unavailable Jcarlos, Zakiya DO Unavailable Unavailable Jcarlos, Zakiya DO Unavailable Unavailable Jcarlos, Zakiya DO Unavailable Unavailable Jcarlos, Zakiya DO Unavailable Unavailable Jcarlos, Zakiya DO Unavailable Unavailable Jcarlos, Zakiya DO Unavailable Unavailable Jcarlos, Zakiya DO Unavailable Unavailable Jcarlos, Zakiya DO Unavailable Unavailable Jcarlos, Zakiya DO Unavailable Unavailable Jcarlos, Zakiya DO Unavailable Unavailable Jcarlos, Zakiya DO Unavailable Unavailable Jcarlos, Zakiya DO Unavailable Unavailable Jcarlos, Zakiya DO Unavailable Unavailable Jcarlos, Zakiya DO Unavailable Unavailable Jcarlos, Zakiya DO Unavailable Unavailable Jcarlos, Zakiya DO Unavailable Unavailable Jcarlos, Zakiya DO Unavailable Unavailable Jcarlos, Zakiya DO Unavailable Unavailable Jcarlos, Zakiya DO Unavailable Unavailable Jcarlos, Zakiya DO Unavailable Unavailable Jcarlos, Zakiya DO Unavailable Unavailable Jcarlos, Zakiya DO Unavailable Unavailable Jcarlos, Zakiya DO Unavailable Unavailable Jcarlos, Zakiya DO Unavailable Unavailable Jcarlos, Zakiya DO Unavailable Unavailable Jcarlos, Zakiya DO Unavailable Unavailable Jcarlos, Zakiya DO Unavailable Unavailable Jcarlos, Zakiya DO Unavailable Unavailable Jcarlos, Zakiya DO Unavailable Unavailable Jcarlos, Zakiya DO Unavailable Unavailable Jcarlos, Zakiya DO Unavailable Unavailable Jcarlos, Zakiya DO Unavailable Unavailable Jcarlos, Zakiya DO Unavailable Unavailable Jcarlos, Zakiya DO Unavailable Unavailable Jcarlos, Zakiya DO Unavailable Unavailable Jcarlos, Zakiya DO Unavailable Unavailable Jcarlos, Zakiya DO Unavailable Unavailable Jcarlos, Zakiya DO Unavailable Unavailable Jcarlos, Zakiya DO Unavailable Unavailable Jcarlos, Zakiya DO Unavailable Unavailable Jcarlos, Zakiya DO Unavailable Unavailable Jcarlos, Zakiya DO Unavailable Unavailable Jcarlos, Zakiya DO Unavailable Unavailable Jcarlos, Zakiya DO Unavailable Unavailable Jcarlos, Zakiya DO Unavailable Unavailable Jcarlos, Zakiya DO Unavailable Unavailable Jcarlos, Zakiya DO Unavailable Unavailable Jcarlos, Zakiya DO Unavailable Unavailable Jcarlos, Zakiya DO Unavailable Unavailable Jcarlos, Zakiya DO Unavailable Unavailable Jcarlos, Zakiya DO Unavailable Unavailable Jcarlos, Zakiya DO Unavailable Unavailable Jcarlos, Zakiya DO Unavailable Unavailable Jcarlos, Zakiya DO Unavailable Unavailable Jcarlos, Zakiya DO Unavailable Unavailable Jcarlos, Zakiya DO Unavailable Unavailable Jcarlos, Zakiya DO Unavailable Unavailable Jcarlos, Zakiya DO Unavailable Unavailable Jcarlos, Zakiya DO Unavailable Unavailable Jcarlos, Zakiya DO Unavailable Unavailable Jcarlos, Zakiya DO Unavailable Unavailable Jcarlos, Zakiya DO Unavailable Unavailable Jcarlos, Zakiya DO Unavailable Unavailable Jcarlos, Zakiya DO Unavailable Unavailable Jcarlos, Zakiya DO Unavailable Unavailable Jcarlos, Azkiya DO Unavailable Unavailable Jcarlos, Zakiya DO Unavailable Unavailable Jcarlos, Zakiya DO Unavailable Unavailable Jcarlos, Zakiya DO Unavailable Unavailable Jcarlos, Zakiya DO Unavailable Unavailable Jcarlos, Zakiya DO Unavailable Unavailable Jcarlos, Zakiya DO Unavailable Unavailable Jcarlos, Zakiya DO Unavailable Unavailable Jcarlos, Zakiya DO Unavailable Unavailable Jcarlos, Zakiya DO Unavailable Unavailable Jcarlos, Zakiya DO Unavailable Unavailable Jcarlos, Zakyia DO Unavailable Unavailable Jcarlos, Zakiya DO Unavailable Unavailable Cong GALO MD Unavailable Unavailable Cong GALO MD Unavailable Unavailable Cong GALO MD Unavailable Unavailable Cong GALO MD Unavailable Unavailable Cong GALO MD Unavailable Unavailable Cong GALO MD Unavailable Unavailable Cong GALO MD Unavailable Unavailable Cong GALO MD Unavailable Unavailable Cong GALO MD Unavailable Unavailable Cong GALO MD Unavailable Unavailable Cong GALO MD Unavailable Unavailable Cong GALO MD Unavailable Unavailable Cong GALO MD Unavailable Unavailable Cong GALO MD Unavailable Unavailable Cong GALO MD Unavailable Unavailable Cong GALO MD Unavailable Unavailable Cong GALO MD Unavailable Unavailable Cong GALO MD Unavailable Unavailable Cong GALO MD Unavailable Unavailable Cong GALO MD Unavailable Unavailable Cong GALO MD Unavailable Unavailable Cong GALO MD Unavailable Unavailable Cong GALO MD Unavailable Unavailable Cong GALO MD Unavailable Unavailable Cong GALO MD Unavailable Unavailable Cong GALO MD Unavailable Unavailable Cong GALO MD Unavailable Unavailable Cong GALO MD Unavailable Unavailable BERNICE S SHELL PURCELL Unavailable Unavailable Cong GALO MD Unavailable Unavailable Cong GALO MD Unavailable Unavailable Cong GALO MD Unavailable Unavailable Cong GALO MD Unavailable Unavailable Cong GALO MD Unavailable Unavailable Cong GALO MD Unavailable Unavailable Cong GALO MD Unavailable Unavailable Cong GALO MD Unavailable Unavailable Cong GALO MD Unavailable Unavailable Cong GALO MD Unavailable Unavailable Cong GALO MD Unavailable Unavailable Cong GALO MD Unavailable Unavailable Cong GALO MD Unavailable Unavailable Cong GALO MD Unavailable Unavailable Cong GALO MD Unavailable Unavailable Cong GALO MD Unavailable Unavailable Cong GALO MD Unavailable Unavailable Cong GALO MD Unavailable Unavailable Cong GALO MD Unavailable Unavailable Cong GALO MD Unavailable Unavailable Cong GALO MD Unavailable Unavailable Cong GALO MD Unavailable Unavailable Cong GALO MD Unavailable Unavailable Cong GALO MD Unavailable Unavailable Cong GALO MD Unavailable Unavailable Cong GALO MD Unavailable Unavailable Cong GALO MD Unavailable Unavailable Cong GALO MD Unavailable Unavailable Cong GALO MD Unavailable Unavailable Cong GALO MD Unavailable Unavailable Cong GALO MD Unavailable Unavailable Cong GALO MD Unavailable Unavailable Cong GALO MD Unavailable Unavailable Cong GALO MD Unavailable Unavailable Cong GALO MD Unavailable Unavailable Cong GALO MD Unavailable Unavailable Cong GALO MD Unavailable Unavailable Cong GALO MD Unavailable Unavailable BERNICE, S SHELL MD Unavailable Unavailable BERNICE, S SHELL MD Unavailable Unavailable BERNICE, S SHELL MD Unavailable Unavailable BERNICE, S SHELL MD Unavailable Unavailable BERNICE, S SHELL MD Unavailable Unavailable BERNICE, S SHELL MD Unavailable Unavailable BERNICE, S SHELL MD Unavailable Unavailable BERNICE, S SHELL MD Unavailable Unavailable BERNICE, S SHELL MD Unavailable Unavailable BERNICE, S SHELL MD Unavailable Unavailable BERNICE, S SHELL MD Unavailable Unavailable BERNICE, S SHELL MD Unavailable Unavailable BERNICE, S SHELL MD Unavailable Unavailable BERNICE, S SHELL MD Unavailable Unavailable BERNICE, S SHELL MD Unavailable Unavailable BERNICE, S SHELL MD Unavailable Unavailable BERNICE, S SHELL MD Unavailable Unavailable Re-disclosure Warning The records that you are about to access may contain information from federally-assisted alcohol or drug abuse programs. If such information is present, then the following federally mandated warning applies: This information has been disclosed to you from records protected by federal confidentiality rules (42 CFR part 2). The federal rules prohibit you from making any further disclosure of this information unless further disclosure is expressly permitted by the written consent of the person to whom it pertains or as otherwise permitted by 42 CFR part 2. A general authorization for the release of medical or other information is NOT sufficient for this purpose. The Federal rules restrict any use of the information to criminally investigate or prosecute any alcohol or drug abuse patient.The records that you are about to access may contain highly sensitive health information, the redisclosure of which is protected by Article 27-F of the [facility] Public Health law. If you continue you may have access to information: Regarding HIV / AIDS; Provided by facilities licensed or operated by the [facility] Office of Mental Health; or Provided by the [facility] Office for People With Developmental Disabilities. If such information is present, then the following [facility] mandated warning applies: This information has been disclosed to you from confidential records which are protected by state law. State law prohibits you from making any further disclosure of this information without the specific written consent of the person to whom it pertains, or as otherwise permitted by law. Any unauthorized further disclosure in violation of state law may result in a fine or correction sentence or both. A general authorization for the release of medical or other information is NOT sufficient authorization for further disc losure. Family History Family Member Name Family Member Gender Family Member Status Date o f Status Description Data Source(s) Unknown Unknown Problem [facility] ([facility] ) Encounters Encounter Providers Location Date Indications Data Source(s ) Office Visit Attender: Zakiya Glaser 06/27 10:00:00 AM EST [facility] ([facility] ) Outpatient Referrer: Zakiya Garber DO 02/07/2020 03:55:00 PM EDT [facility] Outpatient Referrer: Zakiya Garber DO 02/02/2020 09:52:00 AM EDT [facility] Outpatient Referrer: Zakiya Garber DO 02/02/2020 09:51:00 AM EDT [facility] Outpatient Attender: SHELL BIGGSeferrer: Zakiya diallo DO 01/31/2020 11:48:16 AM EDT [facility] Recurring Patient Referrer: Zakiya Garber DO 01/19/2020 12:4 1:01 PM EDT [facility] Recurring Patient Referrer: Zakiya Garber DO 01/19/2020 12:3 9:13 PM EDT [facility] Outpatient Attender: Zakiya Glaser 01/10 10:40:00 AM EDT [facility] ([facility] ) Immunizations Vaccine Date Status Description Data Source(s) Influenza, injectable, MDCK, preservative free, [facility] 06/27/2020 10:16:00 AM EST completed [facility]) Medications Medication Brand Name Start Date Product Form Dose Route Admi nistrative Instructions Pharmacy Instructions Status Indications Reaction Description Data Source(s) 100 mcg/0.5 mL 09/04/2020 12:00:00 AM EST suspension 0 [facility] (FIRST DOSE) INJECT BY [facility] (FIRST DOSE) SOLD: 09/04/2020 [facility] 5 mg 06/27/2020 12:00:00 AM EST tablet 90 TAKE ONE TABLET BY MOUTH AT BEDTIME TAKE ONE TABLET BY MOUTH AT BEDTIME SOLD: 07/06/2020 [facility] Administration Of Flu Vaccine 06/27/2020 12:00:00 AM EST completed [facility] ([facility]) Medication administered onsite Metformin hydrochloride 500 MG Oral Tablet METFORMIN HCL 06/27/2020 12:00:00 AM EST tablet 180 TAKE ONE TABLET BY MOUTH TWI CE A DAY TAKE ONE TABLET BY MOUTH TWICE A DAY SOLD: 07/06/2020 [facility] 12.5 mg 06/16/2020 12:00:00 AM EDT capsule 90 TAKE ONE CAPSULE BY MOUTH EVERY DAY TAKE ONE CAPSULE BY MOUTH EVERY DAY SOLD: 06/21/2020 [facility] 5 mg 04/18/2020 12:00:00 AM EDT tablet 90 TAKE ONE TABLET BY MOUTH AT BEDTIME TAKE ONE TABLET BY MOUTH AT BEDTIME SOLD: 05/01/2020 [facility] montelukast 10 MG Oral Tablet MONTELUKAST SODIUM 03/14/2020 12:0 0:00 AM EDT tablet 90 TAKE ONE TABLET BY MOUTH AT BEDT ILDA TAKE ONE TABLET BY MOUTH AT BEDTIME SOLD: 06/21/2020 [facility] montelukast 10 MG Oral Tablet MONTELUKAST SODIUM 03/14/2020 12:0 0:00 AM EDT tablet 90 TAKE ONE TABLET BY MOUTH AT BEDT ILDA TAKE ONE TABLET BY MOUTH AT BEDTIME SOLD: 03/20/2020 [facility] 10 mg 02/25/2020 12:00:00 AM EDT tablet 90 TAKE ONE TABLET BY MOUTH EVERY DAY TAKE ONE TABLET BY MOUTH EVERY DAY SOLD: 06/21/2020 [facility] 10 mg 02/25/2020 12:00:00 AM EDT tablet 90 TAKE ONE TABLET BY MOUTH EVERY DAY TAKE ONE TABLET BY MOUTH EVERY DAY SOLD: 03/20/2020 [facility] 10 mg 02/25/2020 12:00:00 AM EDT tablet 90 TAKE ONE TABLET BY MOUTH EVERY DAY TAKE ONE TABLET BY MOUTH EVERY DAY SOLD: 08/21/2020 [facility] solifenacin succinate 10 MG Oral Tablet Solifenacin Succinat e 02/25/2020 12:00:00 AM EDT ORAL active M [facility]ENT ([facility]) 15 mg 01/31/2020 12:00:00 AM EDT tablet 30 TAKE ONE TABLET BY MOUTH EVERY DAY WITH FOOD NEEDED TAKE ONE TABLET BY MOUTH EVERY DAY WITH FOOD NEEDED SOLD: 02/12/2020 [facility] solifenacin succinate 5 MG Oral Tablet Solifenacin Succinate 01/11/2020 12:00:00 AM EDT ORAL completed [facility] 5 mg 01/11/2020 12:00:00 AM EDT tablet 60 TAKE TWO TABLETS BY MOUTH EVERY DAY TAKE TWO TABLETS BY MOUTH EVERY DAY SOLD: 05/01/2020 [facility] 5 mg 01/11/2020 12:00:00 AM EDT tablet 60 TAKE TWO TABLETS BY MOUTH EVERY DAY TAKE TWO TABLETS BY MOUTH EVERY DAY SOLD: 01/15/2020 [facility] 5 mg 01/11/2020 12:00:00 AM EDT tablet 60 TAKE TWO TABLETS BY MOUTH EVERY DAY TAKE TWO TABLETS BY MOUTH EVERY DAY SOLD: 02/12/2020 [facility] 5 mg 01/11/2020 12:00:00 AM EDT tablet 60 TAKE TWO TABLETS BY MOUTH EVERY DAY TAKE TWO TABLETS BY MOUTH EVERY DAY SOLD: 03/20/2020 [facility] 1 % 12/31/2019 12:00:00 AM EDT cream 30 APPLY TO EYEBROWS SPARINGLY TWO TIMES A DAY NEEDED APPLY TO EYEBROWS SPARINGLY TWO TIMES A DAY NEEDED SOLD: 01/15/2020 [facility] 1 % 12/31/2019 12:00:00 AM EDT cream 30 APPLY TO EYEBROWS SPARINGLY TWO TIMES A DAY NEEDED APPLY TO EYEBROWS SPARINGLY TWO TIMES A DAY NEEDED SOLD: 02/12/2020 [facility] 1 % 10/21/2019 12:00:00 AM EST cream 30 APPLY TO EYEBROWS SPARINGLY TWO TIMES A DAY NEEDED APPLY TO EYEBROWS SPARINGLY TWO TIMES A DAY NEEDED SOLD: 10/23/2019 [facility] 1 % 10/21/2019 12:00:00 AM EST cream 30 APPLY TO EYEBROWS SPARINGLY TWO TIMES A DAY NEEDED APPLY TO EYEBROWS SPARINGLY TWO TIMES A DAY NEEDED SOLD: 12/04/2019 [facility] 5 mg 10/04/2019 12:00:00 AM EST tablet 90 TAKE ONE TABLET BY MOUTH EVERY DAY TAKE ONE TABLET BY MOUTH EVERY DAY SOLD: 10/12/2019 [facility] 20 mg 09/29/2019 12:00:00 AM EST capsule,delayed release (DR/EC) 90 TAKE ONE CAPSULE BY MOUTH EVERY DAY TAKE ONE CAPSULE BY MOUTH EVERY DAY SOLD: 10/01/2019 [facility] 20 mg 09/29/2019 12:00:00 AM EST capsule,delayed release (DR/EC) 90 TAKE ONE CAPSULE BY MOUTH EVERY DAY TAKE ONE CAPSULE BY MOUTH EVERY DAY SOLD: 12/27/2019 [facility] 20 mg 09/29/2019 12:00:00 AM EST capsule,delayed release (DR/EC) 90 TAKE ONE CAPSULE BY MOUTH EVERY DAY TAKE ONE CAPSULE BY MOUTH EVERY DAY SOLD: 07/06/2020 [facility] 20 mg 09/29/2019 12:00:00 AM EST capsule,delayed release (DR/EC) 90 TAKE ONE CAPSULE BY MOUTH EVERY DAY TAKE ONE CAPSULE BY MOUTH EVERY DAY SOLD: 03/28/2020 [facility] 500 mg 07/08/2019 12:00:00 AM EST tablet 180 TAKE ONE TABLET BY MOUTH TWICE A DAY TAKE ONE TABLET BY MOUTH TWICE A DAY SOLD: 05/01/2020 [facility] 500 mg 07/08/2019 12:00:00 AM EST tablet 180 TAKE ONE TABLET BY MOUTH TWICE A DAY TAKE ONE TABLET BY MOUTH TWICE A DAY SOLD: 01/15/2020 [facility] 500 mg 07/08/2019 12:00:00 AM EST tablet 180 TAKE ONE TABLET BY MOUTH TWICE A DAY TAKE ONE TABLET BY MOUTH TWICE A DAY SOLD: 10/12/2019 [facility] 12.5 mg 06/12/2019 12:00:00 AM EDT capsule 90 TAKE ONE CAPSULE BY MOUTH EVERY DAY TAKE ONE CAPSULE BY MOUTH EVERY DAY SOLD: 03/20/2020 [facility] 12.5 mg 06/12/2019 12:00:00 AM EDT capsule 90 TAKE ONE CAPSULE BY MOUTH EVERY DAY TAKE ONE CAPSULE BY MOUTH EVERY DAY SOLD: 09/13/2019 [facility] 12.5 mg 06/12/2019 12:00:00 AM EDT capsule 90 TAKE ONE CAPSULE BY MOUTH EVERY DAY TAKE ONE CAPSULE BY MOUTH EVERY DAY SOLD: 12/14/2019 [facility] montelukast 10 MG Oral Tablet MONTELUKAST SODIUM 05/03/2019 12:0 0:00 AM EDT tablet 90 TAKE ONE TABLET BY MOUTH AT BEDT ILDA TAKE ONE TABLET BY MOUTH AT BEDTIME SOLD: 08/06/2019 [facility] montelukast 10 MG Oral Tablet MONTELUKAST SODIUM 05/03/2019 12:0 0:00 AM EDT tablet 90 TAKE ONE TABLET BY MOUTH AT BEDT ILDA TAKE ONE TABLET BY MOUTH AT BEDTIME SOLD: 12/18/2019 [facility] levocetirizine dihydrochloride 5 MG Oral Tablet LEVOCETIRIZI NE DIHYDROCHLORIDE 04/14/2019 12:00:00 AM EDT tablet 90 TAKE ONE TABLE T BY MOUTH AT BEDTIME TAKE ONE TABLET BY MOUTH AT BEDTIME SOLD: 07/19/2019 [facility] 5 mg 04/14/2019 12:00:00 AM EDT tablet 90 TAKE ONE TABLET BY MOUTH AT BEDTIME TAKE ONE TABLET BY MOUTH AT BEDTIME SOLD: 10/17/2019 [facility] levocetirizine dihydrochloride 5 MG Oral Tablet LEVOCETIRIZI NE DIHYDROCHLORIDE 04/14/2019 12:00:00 AM EDT tablet 90 TAKE ONE TABLE T BY MOUTH AT BEDTIME TAKE ONE TABLET BY MOUTH AT BEDTIME SOLD: 01/15/2020 [facility] 5 mg 10/23/2018 12:00:00 AM EST tablet 30 TAKE ONE TABLET BY MOUTH EVERY DAY TAKE ONE TABLET BY MOUTH EVERY DAY SOLD: 09/06/2019 [facility] 5 mg 10/23/2018 12:00:00 AM EST tablet 30 TAKE ONE TABLET BY MOUTH EVERY DAY TAKE ONE TABLET BY MOUTH EVERY DAY SOLD: 08/09/2019 [facility] Insurance Providers Payer name Policy type / Coverage type Policy ID Covered republican ID Covered republican's relationship to avery Policy Avery Plan Information MEDICARE [id number] SP [id number] [facility] [id number] SP [id number] [facility] [id number] SP [id number] MEDICARE [id number] SP [id number] A MEDICARE C [id number] S [id number] [facility] ([facility] O [id number] S [id number] MEDICARE C [id number] S [id number] [place] Plan F [id number] SELF [id number] DME Jurisdiction A UTIC C [id number] SELF [id number] Medicare C [id number] SELF [id number] [facility] [place] Medigap Part B [id number] Family Dep endent [id number] [facility] [place] Medigap Part B [id number] Self [id number] Medicare [facility] Gov[facility] Servic Medicare Primary [id number] Self [id number] MEDICARE [id number] SP [id number] A [facility] [id number] SP [id number] BCBS E[place]IRE [place] DIV [id number] SP [id number] [employer] [place] Medigap Part B [id number] Family Dep endent [id number] [employer] [place] Medigap Part B [id number] Self [id number] Medicare [place] Govt Servic Medicare Primary [id number] Self [id number] E[place]IRE (STATE EMP) O [id number] S [id number] E[place]IRE (STATE EMP) O [id number] S [id number] [employer] [place] Medigap Part B [id number] Family Dep endent [id number] [employer] [place] Medigap Part B [id number] Self [id number] Medicare [place] Govt Servic Medicare Primary [id number] Self [id number] [employer] [place] Medigap Part B [id number] Family Dep endent [id number] [employer] [place] Medigap Part B [id number] Self [id number] Medicare [place] Govt Servic Medicare Primary [id number] Self [id number] [place] Primary [id number] Self [id number] UNITED HEALTHCARE O [id number] S [id number] UNITED HEALTHCARE [id number] SP [id number] BCBS E[place]IRE [place] DIV [id number] SP [id number] BCBS E[place]IRE [place] DIV [id number] UNITED HEALTHCARE [id number] [id number] [place] Primary [id number] Self [id number] [employer] [place] Medigap Part B [id number] Family Dep endent [id number] [employer] [place] Medigap Part B [id number] Self [id number] Medicare [place] Govt Servic Medicare Primary [id number] Self [id number] [employer] [place] Medigap Part B [id number] Family Dep endent [id number] [employer] [place] Medigap Part B [id number] Self [id number] Medicare [place] Govt Servic Medicare Primary [id number] Self [id number] [employer] [place] Medigap Part B Family Dep endent Medicare Natl Govt Servic Medicare Primary Self [id number] A Surgeries/Procedures Procedure Description Date Indications Data Source(s) Mammogram 02/07/2020 12:00:00 [facility] Results ID Date Data Source [id number] 06/26/2020 08:13:00 AM EST [facility] ([facility]) Name Value Range Interpretation Code Description Data Emperatriz rce(s) Supporting Document(s) Creatinine 1.0 mg/dL 0.6-1.3 [facility] Glucose [Mass/volume] in Serum or Plasma 89 mg/dL 74-99 [facility] ([facility]) 100-125 mg/dL PRE-DIABETES/FASTING >126 mg/dL DIABETES/FASTING Urea nitrogen [Mass/volume] in Serum or Plasma 18 mg/dL 7-18 [facility] ([facility]) Chloride [Moles/volume] in Serum or Plasma 102 meq/L 98-107 [facility] ([facility]) Sodium [Moles/volume] in Serum or Plasma 142 meq/L 136-145 [facility] ([facility]) Potassium [Moles/volume] in Serum or Plasma 4.5 meq/L 3.5-5.1 [facility] ([facility]) Calcium [Mass/volume] in Serum or Plasma 9.8 mg/dL 8.5-10.1 [facility] ([facility]) Carbon dioxide, total [Moles/volume] in Serum or Plasma 32 meq/L 21 -32 [facility] ([facility]) Total Bilirubin 0.3 mg/dL 0.2-1.0 [facility] ([facility]) Alkaline phosphatase isoenzyme [Units/volume] in Serum or Pl asma 74 mg/dL 46-116 [facility] ([facility]) Albumin [Mass/volume] in Serum or Plasma 4.0 g/dL 3.4-5.0 [facility] ([facility]) Alanine aminotransferase [Enzymatic activity/volume] in Seru m or Plasma 11 U/L 12-78 [facility] ([facility]) Aspartate aminotransferase [Enzymatic activity/volume] in Serum or Plasma 14 U/L 15-37 [facility] A/G Ratio 1.18 CALC 1.00-1.90 [facility] Glomerular filtration rate/1.73 sq M pre dicted among non-blacks [Volume Rate/Area] in Serum or Plasma by Creatinine-based formula (MDRD) 54 mL/min [facility] Glomerular filtration rate/1.73 sq M pre dicted among blacks [Volume Rate/Area] in Serum or Plasma by Creatinine-based formula (MDRD) Laboratory test result [facility] ([facility]) <content>CHRONIC KIDNEY DISEASE STAGING PER NKF</content>
<content></content>
<content>STAGE I & II GFR >= 60 NORMAL TO MILDLY DECREASED</content>
<content>STAGE III GFR 30-59 MODERATELY DECREASED</content>
<content>STAGE IV GFR 15-29 SEVERELY DECREASED</content>
<content>STAGE V GFR <15 VERY LITTLE GFR LEFT</content>
<content>ESRD GFR <15 ON SAP SECURITY ARCHITECT</content>
<content></content> Proteinase 3 Ab [Units/volume] in Serum 7.4 g/dL 6.4-8.2 [facility] ([facility]) ID Date Data Source [id number] 06/26/2020 08:13:00 AM EST [facility] Name Value Range Interpretation Code Description Data Emperatriz rce(s) Supporting Document(s) Hemoglobin A1c/Hemoglobin.total in Blood 5.9 % [facility] ([facility]) Lab Result Notes: Pre-Diabetes 5.7 - 6.4 % Diabetes = or > 6.5% Glucose mean value [Mass/volume] in Blood Estimated fr om glycated hemoglobin 123 mg/dL 60-110 [facility] ([facility] ) ID Date Data Source [id number] 06/26/2020 08:13:00 AM EST [facility] Name Value Range Interpretation Code Description Data Emperatriz rce(s) Supporting Document(s) Leukocytes [#/volume] in Blood by Automated count 4.8 x10*3/UL 4.1-10 .9 [facility] ([facility]) Erythrocytes [#/volume] in Blood by Automated count 4.53 x10*6/UL 4.2 0-6.30 [facility] ([facility]) Hematocrit [Volume Fraction] of Blood by Automated count 39.0 % 3 7.0-51.0 [facility] ([facility]) Hemoglobin [Mass/volume] in Blood 13.4 g/dL 12.0-18.0 [facility] ([facility]) MCH 29.6 pg 26.0-32.0 [facility] Erythrocyte distribution width [Ratio] by Automated count 13.3 % 11.6-13.7 [facility] ([facility]) MCHC 34.4 g/dL 31.0-38.0 [facility]) MCV 86.1 fL 80.0-97.0 [facility] Platelets [#/volume] in Blood by Automated count 285 x10*3/UL 140-440 [facility] ([facility]) Lymph % 29.5 % 10.0-58.5 [facility]) MPV 7.8 FL 7.8-11.0 [facility]) Lymph # 1.4 x10*3/UL 0.6-4.1 [facility] ([facility]) Neut % 62.7 % 37.0-92.0 [facility] Mid % 7.8 % 1.7-9.3 [facility] Mid # 0.4 x10*3/UL 0.1-0.6 [facility] ([facility]) Neut # 3.0 x10*3/UL 2.0-7.8 [facility] ([facility]) ID Date Data Source [id number] 02/07/2020 12:00:00 AM EDT [facility] Zakiya Garber DO Patient Name: SANDI DAVISN[age] [facility] 1940[facility] Date of Exam: 02/07/2020KAPIL Catalan [id number]#: Fax: [phone] EXAM: MAMMO SCREENING WITH CADCLINICAL INFORMATION: Screening.Based on the personal and family history information your patient suppliedat the time of imaging, her lifetime risk of breast cancer estimated by theTyrer-Cuzick model is 2.8%. Given that this patient has less than 20% TCrisk score, no further medical management is currently recommended at thistime.Digital screening (2D) mammography was performed bilaterally in the CC andMLO projections. Additionally, breast tomosynthesis (3D mammography) wasperformed bilaterally in the CC and MLO projections. Today's exam wascompared to the prior exam(s).By history, the patient has no complaints of a palpable breast abnormalityor other significant breast complaints.The patient states last clinical breast exam was in 12/2019.The breasts are unchanged in size and shape. There are no kelly-soft tissuedensities or spiculated masses. There is no internal architecturaldistortion. There are no suspicious kelly-calcific clusters. Skinthickening or nipple retraction is not present. There are benigncalcifications bilaterally. Once again, dense heterogeneous fibroglandularelements are seen bilaterally in a stable appearing pattern but to such adegree that the sensitivity of the mammogram in detecting cancer isdecreased.The Volpara volumetric breast density category is C, the breasts areheterogeneously dense which may obscure small masses.IMPRESSION:BI-RADS Category 2 - Benign Finding(s). Stable mammogram. There is noevidence of malignant alteration of the breasts. Followup examinationrecommended in one year.This mammogram was read with the assistance of Alesha MENDIOLA, an FDAapproved computer aided detection system for mammography.Negative x-ray reports should not delay surgical consultation if a dominantor clinically suspicious mass is present.Not all breast cancers can be identified by mammography. Therefore, werecommend that you continue to perform regular breast self-examination andphysical examination and then promptly contact your physician of anyconcerns or changes.Adenosis and dense breasts may obscure an underlying neoplasm.JEANNIE Hylton/Patric you for referring ADAIR DAVIS to our office. Electronically Signed - RONDA SMITH DO 02/08/20 13:40 Name Value Range Interpretation Code Description Data Emperatriz rce(s) Supporting Document(s) ID Date Data Source [id number] 01/31/2020 11:48:16 AM EDT [facility], PCName: Adair DavisDOB: 2Provider: Salma Galo: 01/31/2020 History of Present IllnessThis is a 79-year-old female with right shoulder pain. She's had pain since last fall when she received a flu shot. She denies any injury or trauma but the pain is worse with overhead activity and is now starting to affect her activities of daily living. She has not had any anti-inflammatories except for Aleve, which gives her minimal relief. She comes in with her son today who translates for as she is hard of hearing Results/DataXRays were ordered, obtained and interpreted today in the office. Indication: pain/dysfunction. Side: Right Site: Shoulder Views: 3 Views AP/Outlet/Axillary Findings: No fractures, dislocations, or other significant abnormalities. Assessment Right shoulder pain (719.41) (M25.511) This is a 79-year-old female with right shoulder pain. She has pain with overhead activity. Denies any injury or trauma. My concern is she may have some bursitis. She thinks that it started after a flu shot last year. Each could've caused some's bursitis, but the fact that she still having discomfort leads me to think that there is more tendinosis or chronic bursitis. Therefore , I think she would benefit from physical therapy and anti-inflammatories which were prescribed. I also think she benefit from a subacromial cortisone injection todayUnder sterile technique the right shoulder was prepped and draped in the usual sterile fashion and bony landmarks were palpated. The right shoulder was then injected with [80] mg of Depo-Medrol [2] cc lidocaine under sterile technique. The anticipated outcome, benefits and risks including but not limited to infection, failure to provide benefit and bleeding were discussed with the patient. The patient tolerated procedure well. There was no injectable waist.I advised the patient that steroid injections are frequently used to provide relief for musculoskeletal pain and to aid in the diagnosis of musculoskeletal problems. These injection offers a variety of benefits and various potential risks associated with medication administered during the injection. I informed the patient that. Alternatives to this injection includes no treatment, use of rehabilitation and exercise, use of a different medication, either oral or injectable, and surgical intervention when appropriate. I advised the patient that the risks associated with this injection include: An allergic reaction to the medication, pain at the injection site, possible infection of the injection site, facial flushing and skin changes, temporary increase in blood sugar, tendon, muscle or nerve injury, avascular necrosis and that there may actually not be beneficial effect at all. Having discussed, benefits, alternatives, and potential risks of the injection, the patient elected to proceed with the procedure Plan Start: Meloxicam 15 MG Oral Tablet (Mobic); TAKE 1 TABLET DAILY WITH FOOD PRNMDD:1 Rx By: Shell aGlo; Dispense: 0 Days ; #:30 T ablet; Refill: 0;For: Right shoulder pain; SANDI = N; Sent To: [facility]; Last Updated By: Corrina Villagran; 01/31/2020 11:46:40 AM X-Ray I Shoulder - 2 views (XRays were ordered, obtained and interpreted today in theoffice. Indication: pain/dysfunction.); Status:Complete; Done: 31Jan2020 Perform:SOS28; Due:14Feb2020; Last Updated By:Francie Mills; 01/31/2020 11:25:56 AM;Ordered; For:Right shoulder pain; Ordered By:Shell Galo;jkLaterality: : Right Physical Therapy (SOS) - General Treatment Treatment Status: Complete Done:31Jan2020 Ordered;For: Right shoulder pain; Ordered By: Shell Galo Performed: Due: [id number]; Last Updated By: Corrina Villagran; 01/31/2020 11:46:37 AMPT Protocol : Evaluate and treat as indicated, per protocol or as previously written.Duration: : Six WeeksPT Frequency : Two or three times a weekLaterality and Body Part : right shoulder impingement This document was dictated and electronically signed using [employer] software. A reasonable attempt at proof reading has been made to minimize errors. Please call with any questions. Signatures Electronically signed by : Shell Galo M.D.; Jan 31 2020 11:48AM EST (Author) Name Value Range Interpretation Code Description Data Emperatriz rce(s) Supporting Document(s) ID Date Data Source [id number] 01/07/2020 08:07:00 AM EDT [facility] ([facility]) Name Value Range Interpretation Code Description Data Emperatriz rce(s) Supporting Document(s) Thyrotropin [Units/volume] in Serum or Plasma by Detec tion limit <= 0.05 mIU/L 0.90 uIU/mL 0.36-3.74 [facility] ID Date Data Source [id number] 01/07/2020 08:07:00 AM EDT [facility] ([facility]) Name Value Range Interpretation Code Description Data Emperatriz rce(s) Supporting Document(s) Triglyceride [Mass/volume] in Serum or Plasma 163 mg/dL 30-150 [facility] ([facility]) Cholesterol in HDL [Mass/volume] in Serum or Plasma 47 mg/dL 35-60 [facility] ([facility]) Cholesterol [Mass/volume] in Serum or Plasma 222 mg/dL 131-200 [facility] ([facility]) Cholesterol in LDL [Mass/volume] in Serum or Plasma by calcu lation 142 CALC 50-159 [facility] ID Date Data Source [id number] 01/07/2020 08:07:00 AM EDT [facility]) Name Value Range Interpretation Code Description Data Emperatriz rce(s) Supporting Document(s) Urea nitrogen [Mass/volume] in Serum or Plasma 21 mg/dL 7-18 [facility] ([facility]) Glucose [Mass/volume] in Serum or Plasma 108 mg/dL 74-99 [facility] ([facility]) 100-125 mg/dL PRE-DIABETES/FASTING >126 mg/dL DIABETES/FASTING Creatinine 1.4 mg/dL 0.6-1.3 [facility] Sodium [Moles/volume] in Serum or Plasma 145 meq/L 136-145 [facility] ([facility]) Potassium [Moles/volume] in Serum or Plasma 4.4 meq/L 3.5-5.1 [facility] ([facility]) Chloride [Moles/volume] in Serum or Plasma 105 meq/L 98-107 [facility] ([facility]) Carbon dioxide, total [Moles/volume] in Serum or Plasma 31 meq/L 21 -32 [facility] ([facility]) Alkaline phosphatase isoenzyme [Units/volume] in Serum or Pl asma 75 mg/dL 46-116 [facility] ([facility]) Calcium [Mass/volume] in Serum or Plasma 10.0 mg/dL 8.5-10.1 [facility] ([facility]) Aspartate aminotransferase [Enzymatic activity/volume] in Serum or Plasma 15 U/L 15-37 [facility] ([facility] ) Alanine aminotransferase [Enzymatic activity/volume] in Seru m or Plasma 14 U/L 12-78 [facility] ([facility]) Total Bilirubin 0.3 mg/dL 0.2-1.0 [facility] ([facility]) Proteinase 3 Ab [Units/volume] in Serum 7.4 g/dL 6.4-8.2 [facility] ([facility]) Glomerular filtration rate/1.73 sq M pre dicted among non-blacks [Volume Rate/Area] in Serum or Plasma by Creatinine-based formula (MDRD) 36 mL/min [facility] ([facility]) Albumin [Mass/volume] in Serum or Plasma 3.9 g/dL 3.4-5.0 [facility] ([facility]) A/G Ratio 1.11 CALC 1.00-1.90 [facility] ([facility]) Glomerular filtration rate/1.73 sq M pre dicted among blacks [Volume Rate/Area] in Serum or Plasma by Creatinine-based formula (MDRD) 44 mL/min [facility] ([facility]) <content>CHRONIC KIDNEY DISEASE STAGING PER NKF</content>
<content></content>
<content>STAGE I & II GFR >= 60 NORMAL TO MILDLY DECREASED</content>
<content>STAGE III GFR 30-59 MODERATELY DECREASED</content>
<content>STAGE IV GFR 15-29 SEVERELY DECREASED</content>
<content>STAGE V GFR <15 VERY LITTLE GFR LEFT</content>
<content>ESRD GFR <15 ON SAP SECURITY ARCHITECT</content>
<content></content> ID Date Data Source [id number] 01/07/2020 08:07:00 AM EDT [facility] ([facility]) Name Value Range Interpretation Code Description Data Emperatriz rce(s) Supporting Document(s) Leukocytes [#/volume] in Blood by Automated count 5.6 x10*3/UL 4.1-10 .9 [facility] ([facility]) Hemoglobin [Mass/volume] in Blood 12.4 g/dL 12.0-18.0 [facility] ([facility]) Erythrocytes [#/volume] in Blood by Automated count 4.38 x10*6/UL 4.2 0-6.30 [facility] ([facility]) Hematocrit [Volume Fraction] of Blood by Automated count 37.4 % 3 7.0-51.0 [facility] ([facility]) MCV 85.4 fL 80.0-97.0 [facility]) MCHC 33.2 g/dL 31.0-38.0 [facility] ([facility]) MCH 28.3 pg 26.0-32.0 [facility] ([facility]) Platelets [#/volume] in Blood by Automated count 276 x10*3/UL 140-440 [facility] ([facility]) Erythrocyte distribution width [Ratio] by Automated count 14.0 % 11.6-13.7 [facility] ([facility]) Lymph % 28.3 % 10.0-58.5 [facility]) MPV 8.0 FL 7.8-11.0 [facility]) Neut % 63.5 % 37.0-92.0 [facility]) Lymph # 1.5 x10*3/UL 0.6-4.1 [facility] ([facility]) Mid % 8.2 % 1.7-9.3 [facility]) Mid # 0.6 x10*3/UL 0.1-0.6 [facility] ([facility]) Neut # 3.5 x10*3/UL 2.0-7.8 [facility] ([facility]) Procedure Vital Signs ID Date Data Source UNK Name Value Range Interpretation Code Description Data Source(s) Diastolic blood pressure 88 mm[Hg] 88 mm[Hg] [facility] Systolic blood pressure 160 mm[Hg] 160 mm[Hg] [facility] Body mass index (BMI) [Ratio] 19.9 kg/m2 19.9 k g/m2 [facility] ([facility]) Body weight 110.38 [lb_av] 110.38 [lb_av] [facility] Body height 62.5 [in_i] 62.5 [in_i] [facility] ([facility]) 5'2.50" Body mass index (BMI) [Ratio] 21.8 kg/m2 21.8 k g/m2 [facility] Oxygen saturation in Arterial blood by Pulse oximetry 97 % 97 % [facility]) RM Air Body weight 121.00 [lb_av] 121.00 [lb_av] [facility] Body height 62.5 [in_i] 62.5 [in_i] [facility] ([facility]) 5'2.50" Heart rate 78 /min 78 /min [facility] ([facility]) Diastolic blood pressure 84 mm[Hg] 84 mm[Hg] [facility] Systolic blood pressure 132 mm[Hg] 132 mm[Hg] [facility] ([facility])
--- OUTSIDE RECORDS SUMMARY | 2020-09-18 16:40 | CCD | Continuity of Care Document ---
Author Author Lab Schedule, Lindy Diallo Organization Unknown Address [address] [address] Phone Unavailable Care Team Providers Care Wic Site Coordinator Name Role Phone Zakiya Garber DO AUTM [...] Tablet By Mouth AT Bedtime 90tabs Zakiya GabrerDO 07/14/2012 Glucometer Misc use as direc julia [...] CPT Code Status Date Vaccine Lot # [id number] Given 07/11/2019 Prevnar 13 [id number] Given 07/08/2019 Influenza Vaccin e Quadrivalent Preser/Antibiotic Free Im Use [id number] Given 04/15/2018 Pneumovax 23 [id number] Refused 06/22/2018 Influenza Virus Vaccine, Quadrivalent ([id number]), [...] H/L Range Note Complete Blood Count 06/26/2020 [facility] [place]: [place] [address] [phone] WBC 4.8 x10*3/UL 4.1 - 10.9 RBC [...] 3.0 x10*3/UL 2.0 - 7.8 A1c 06/26/2020 [facility] [place]: [place] [address] [phone] Hba1c 5.9 % High <5.7 1 Est Avg Glucose 123 mg/dL High 60 - 110 Comprehensive Chem Profile 06/26/2020 [facility] [place]: [place] [address] [phone] Glucose 89 mg/dL 74 - 99 2 [...] mL/min >60 3 Complete Blood Count 01/07/2020 [facility] [place]: [place] [address] [phone] WBC 5.6 x10*3/UL 4.1 - 10.9 RBC [...] 2.0 - 7.8 Comprehensive Chem Profile 01/07/2020 [facility] [place]: [place] [address] [phone] Glucose 108 mg/dL High 74 - 99 [...] mL/min Low >60 5 Lipid Profile 01/07/2020 [facility] [place]: [place] [address] [phone] Cholesterol 222 mg/dL High 131 - 200 Triglycerides 163 mg/dL High 30 - 150 HDL Cholesterol 47 mg/dL 35 - 60 LDL (Calculated) 142 CALC 50 - 159 Laboratory test finding 01/07/2020 [facility] [place]: [place] [address] [phone] Thyroid Stimulating Hormone 0.90 uIU/mL 0.3 6 [...] LITTLE GFR LEFT ESRD GFR <15 ON INSTRUCTOR LOOPING 4 100-125 mg/dL PRE-DIABET ES/FASTING >126 mg/dL DIABETES/FASTING 5 CHRONIC KIDNEY DISEASE STAGI NG PER NKF STAGE I & II GFR >= 60 NORMAL TO MILDLY DECREASED STAGE III GFR 30-59 MODERATELY DECREASED STAGE IV GFR 15-29 SEVERELY DECREASED STAGE V GFR <15 VERY LITTLE GFR LEFT ESRD GFR <15 ON INSTRUCTOR LOOPING Procedures Date Code Description Status 02/07/2020 [id number] Mammogram Completed 04/24/2018 [id number] Mammogram Completed 07/21/2012 [id number] Bone Mineral Density Test Comple julia 03/11/2012 [id number] Diabetic Retinal Eye Exam [facility] 10/04/2011 [id number] Mammogram Completed 05/20/2007 [id number] Bone Mineral Density Test Comple [facility] 09/08/2003 [id number] Colonoscopy Completed Medical Devices Description No Information Available Encounters Type Date Location Provider Dx Diagnosis Office Visit 01/11/2020 10:40a [facility] Zakiya Garber DO E11.9 Type 2 diabetes mellitus without complications I10 Essential (primary) hyperten shanika F17.210 Nicotine dependence, cigaret jamie, uncomplicated E78.5 Hyperlipidemia, unspecified M17.0 Bilateral primary osteoarthr itis of knee I83.93 Asymptomatic varicose veins of bilateral lower extremities M25.511 Pain in right shoulder Assessments Date Code Description Provider 01/11/2020 E11.9 Type 2 diabetes mellitus without complications Zakiya Garber, 01/11/2020 I10 Essential (primary) hypertension Zakiya Garber DO 01/11/2020 F17.210 Nicotine dependence, cigarettes, uncomplicated Zakiya Garbre, 01/11/2020 E78.5 Hyperlipidemia, unspecified Avni Garber, 01/11/2020 M17.0 Bilateral primary osteoarthritis of knee Zakiya Garber DO 01/11/2020 I83.93 Asymptomatic varicose veins of b ilateral lower extremities Zakiya Garber DO 01/11/2020 M25.511 Pain in right shoulder Zakiya bobo, 01/07/2020 I10 Essential (primary) hypertension Zakiya Garber DO 01/07/2020 I10 Essential (primary) hypertension Lab Schedule 01/07/2020 E11.9 Type 2 diabetes mellitus without complications Zakiya Garber DO 01/07/2020 E11.9 Type 2 diabetes mellitus without complications Lab Schedule 01/07/2020 E78.5 Hyperlipidemia, unspecified Avni Garber, 01/07/2020 E78.5 Hyperlipidemia, unspecified Lab Schedule Plan of Treatment Future Appointment(s):* 06/27/2020 10:40 am - Nurse #2 at [facility] * 06/27/2020 11:00 am - Zakiya Garber DO at [facility] 01/11/2020 - Zakiya Garber DO* [...] to Reason for Referral Status Appt Date [facility] CONSULT FOR RT SHOULDER PAIN Cl osed 01/31/2020 [address] [place] [address] [phone]
--- NOTE | 2020-09-18 17:19 | HPEPDOC ---
[facility] Medical History & Physical Date of Admission Sep 18, 2020 Date of Service: Sep 18, 2020 Attending Physician: Delfina Durham MD History and Physical CHIEF COMPLAINT: FALL HISTORY OF PRESENT ILLNESS: Patient is a 80-year-old female past medical history of diabetes, hyperlipidemia, hypomagnesemia, hypertension, urinary incontinence/spasms?, Increased forgetfulness questionable age-related memory loss who presented to [facility] emergency room after slipping on the ice and falling. The patient is very hard of hearing and also does not see well even with her glasses, so the majority of her history was given by her son Uvaldo (HCP, POA). The patient had immediate pain of her left hip and was brought to the emergency room for further evaluation. In the emergency room, blood pressure was slightly elevated but other vital signs were stable. Labs were unremarkable. Femoral XR: Left femoral neck fracture is visualized with angulation and displacement. And had severe pain 10/10. She is given 4 mg of IV morphine. On evaluation of her at the bedside it was very difficult to communicate with her through writing as her eyesight is poor and also very difficult through speaking as she was unable to understand anything I was saying verbally. I spoke with her son and healthcare proxy Uvaldo who updated me on the majority of her history. The patient will be admitted under my service for displaced left femoral neck fracture requiring orthopedic evaluation. REVIEW OF SYSTEMS: Unable to obtain PAST MEDICAL HISTORY: Hearing loss with hearing aid in left ear (VERY hard of hearing still) Poor eye sight DM type II HLD Hypomagnesemia HTN Urinary incontinence/ spasms? increased forgetfullness, ? age related memory loss vs. early dementia PAST SURGICAL HISTORY: Knee surgery Bladder surgery FAMILY HISTORY: Father: CAD, in 70's Mother: Healthy, in 's SOCIAL HISTORY: Smoker 1 PPD for 40 years. No alcohol or drug use history. Lives alone but is helped by sons frequently who live near her. Son Uvaldo Davis is HCP, POA ([phone]). Still does ADL, drives and walks independently at baseline. PCP: Zakiya Garber ALLERGIES: Please see below. HOME MEDICATIONS: Please see below. Note: at time of admission, many home meds were still being confirmed, may need to go through and review again later PHYSICAL EXAMINATION: VS: please see below CONSTITUTIONAL: Appears slightly restless 2/2 to pain, in bed, cannot hear or see what I write or say but is O x 3 per nursing EYES: PERRLA, EOM intact HENT, MOUTH: Normocephalic, atraumatic, moist mucous membranes NECK: SUPPLE, no JVD, no lymphadenopathy, no carotid bruit CV: Regular rate and rhythm, S1S2 normal, no murmurs/rubs/gallops RESPIRATORY: Clear to auscultation bilaterally, no rales/rhonchi/wheezes GI: BS positive in 4 quadrants, soft, nontender, nondistended, no rebound or guarding, no organomegaly : Deferred MUSCULOSKELETAL: ROM not tested in left lower ext, no incr swelling or erythema at hip. Normal ROM of all other ext. No cyanosis, clubbing, swelling, joint deformity, extremity edema INTEGUMENTARY: Intact, no rashes, no lesions, no erythema NEUROLOGIC: Cranial Nerves II-XII are intact, no focal deficits LABORATORY DATA: Please see below IMAGING: Femoral XR 09/18/20 : Left femoral neck fracture is visualized with angulation and displacement. ASSESSMENT: 80-year-old female past medical history of diabetes, hyperlipidemia, hypomagnesemia, hypertension, urinary incontinence/spasms?, Increased forgetfulness questionable age-related memory loss admitted for displaced left femoral neck fracture requiring orthopedic evaluation. PLAN: Displaced left femoral neck fracture s/p fall on ice -XR above -Pain control -Patient is low risk for intermediate risk surgery. RCRI score: 1, Class II Risk -Consent will likely be needed to be obtained from DORCAS Gutierrez/HCP ([phone]), as patient cannot see or hear well. -Orthopedic consult placed, f/u recommendations HTN -Likely worsened by pain -Pain control, c/w home meds when not NPO DM type II -NPO -ISS, FS Q6H, when started on diet please do consistent carb Tobacco use -Nicotine patch Urinary incontinence vs. urinary spasm? -C/w home med DVT px -SCD, teds. If does not go to surgery today, please start LMWH DISPOSITION: Admitted as acute inpatient with orthopedic surgery consulted to evaluate. Castro Bailon updated. Vital Signs Vital Signs Date Time Temp Pulse Resp B/P (MAP) Pulse Ox O2 Delivery O2 Flow Rate FiO2 09/18/20 16:45 18 100 Room Air 09/18/20 16:15 58 159/88 (111) 09/18/20 15:02 96.5 Laboratory Data Labs 24H Laboratory Tests 2 09/18/20 14:47: Nucleated Red Blood Cells % (auto) 0.0, Prothrombin Time 13.5, Prothromb Time International Ratio 1.01, Activated Partial Thromboplast Time 27.3, Anion Gap 6L, Glomerular Filtration Rate 58.4, Calcium Level 9.9, Total Creatine Kinase 158, Creatine Kinase MB 1.8, Creatine Kinase MB Relative Index 1.14, Troponin I < 0.02, Coronavirus (COVID-19)(PCR) NEGATIVE, Influenza Type A (RT-PCR) NEGATIVE, Influenza Type B (RT-PCR) NEGATIVE, Respiratory Syncytial Virus (PCR) NEGATIVE CBC/BMP Laboratory Tests 09/18/20 14:47 Microbiology Microbiology 09/18/20 Urine Culture, Received Pending Home Medications Scheduled Acetaminophen (Tylenol Arthritis) 650 Mg Tablet.er, 650 MG PO Q8H Aspirin (Ecotrin) 81 Mg Tablet.dr, 81 MG PO DAILY for pain Hydrochlorothiazide (Hydrochlorothiazide) 12.5 Mg Capsule, 1 CAP PO DAILY Levocetirizine Dihydrochloride (Levocetirizine Dihydrochloride) 5 Mg Tablet, 1 TAB PO QHS Metformin HCl (Metformin HCl) 500 Mg Tablet, 1 TAB PO BID Montelukast Sodium (Montelukast Sodium) 10 Mg Tablet, 1 TAB PO QHS Solifenacin Succinate (Solifenacin Succinate) 10 Mg Tablet, 1 TAB PO DAILY Solifenacin Succinate (Solifenacin Succinate) 5 Mg Tablet, 1 TAB PO DAILY Miscellaneous Medications Magnesium Oxide (Mag-Oxide) 200 Mg Tablet, 200 MG PO Mv-Mn/Iron/Folic Acid/Herb 190 (Vitamin D3 Complete Caplet) 1 Each Tablet, 1 TAB PO Allergies Coded Allergies: No Known Allergies (Unverified , 09/18/20) A-FIB/CHADSVASC A-FIB History Current/History of A-Fib/PAF?: No Current PO Anticoag Therapy: No Age/Risk Factor Scoring CHADSVASC: CHADSVASC Response (Comments) Value Age Risk Factor Age >/= 75 years old 2 Gender Risk Factor Female 1 Hx of CHF No 0 Hx of HTN Yes 1 Hx of Stroke/TIA/or VTE No 0 Hx of Vascular Disease No 0 Total 4 Treatment Treatment ordered: Other Other anticoagulant ordered: scd Delfina Durham MD Sep 18, 2020 17:19
[2020-09-18] MEDS ORDERED: MORPHINE 2 MG/ML 1ML VIAL (J2270) IV ONE (19:15)
[2020-09-18] MEDS: NICOTINE 21MG/24HR 1 EA TRANSDERMAL TD SCH (20:45)
--- NOTE | 2020-09-18 20:53 | ECGEPIP ---
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
[2020-09-18] MEDS: NS 1,000 ML IV SCH (21:59)
[2020-09-18 22:00] VITALS: BP 158/92
[2020-09-19] VITALS (7 sets, daily range): BP systolic 122–202; BP diastolic 75–110
[2020-09-19] MEDS ORDERED: ONDANSETRON 4MG/2ML VIAL IV PRN ×3 (01:45→22:45)
[2020-09-19] MEDS: MORPHINE 4 MG/ML 1ML VIAL/SYRINGE (J2270) IV PRN ×2 (02:10→10:58)
[2020-09-19] MEDS: NS 1,000 ML IV SCH ×2 (06:02→15:07)
[2020-09-19] MEDS: HumaLOG INSULIN (NovoLOG) PER UNIT SC SCH ×4 (06:02→18:00)
[2020-09-19 06:29] LABS: HEMATOCRIT 37.8 % (36.0-47.0); HEMOGLOBIN 12.3 g/dl (12.0-15.5); MEAN CORPUSCULAR HEMOGLOBIN 28.5 pg (27.0-33.0); MEAN CORPUSCULAR HGB CONC 32.5 g/dl (32.0-36.5); MEAN CORPUSCULAR VOLUME 87.5 fl (80.0-96.0); PLATELET COUNT, AUTOMATED 219 10^3/uL (150-450); RED BLOOD COUNT 4.32 10^6/uL (4.00-5.40); WHITE BLOOD COUNT 7.4 10^3/uL (4.0-10.0)
[2020-09-19 06:59] LABS: ALBUMIN 3.8 GM/DL (3.2-5.2); ALT/SGPT 17 U/L (12-78); BILIRUBIN,TOTAL 0.8 MG/DL (0.2-1.0); BLOOD UREA NITROGEN 12 MG/DL (7-18); CALCIUM LEVEL 9.3 MG/DL (8.8-10.2); CARBON DIOXIDE LEVEL 24 MEQ/L (21-32); CHLORIDE LEVEL 103 MEQ/L (98-107); CREATININE FOR GFR 0.81 MG/DL (0.55-1.30); GLOMERULAR FILTRATION RATE > 60.0 (>39); GLUCOSE, FASTING 108 MG/DL (70-100); POTASSIUM SERUM 3.6 MEQ/L (3.5-5.1); SODIUM LEVEL 138 MEQ/L (136-145); TOTAL PROTEIN 7.1 GM/DL (6.4-8.2)
[2020-09-19] MEDS: NICOTINE 21MG/24HR 1 EA TRANSDERMAL TD SCH (08:46)
--- NOTE | 2020-09-19 12:30 | IPNPDOC ---
Text Note Date of Service The patient was seen on 09/19/20. NOTE Subjective: Patient seen and examined at bedside. No acute overnight events reported. No new medical complaints this morning. Objective: General: elderly, frail, lying comfortably in bed HEENT: NC/AT Lungs: CTA B/L Heart: +S1S2, RRR Abd: soft, NT, +BS A/P: 80F with PMHx including diabetes, hyperlipidemia, hypomagnesemia, hypertension, urinary incontinence/spasms?, Increased forgetfulness questionable age-related memory loss admitted for displaced left femoral neck fracture requiring orthopedic evaluation. #Displaced left femoral neck fracture s/p fall on ice -Pain control -Patient medically optimized on admission - low risk for intermediate risk surgery. RCRI score: 1, Class II Risk -Consent will likely be needed to be obtained from castro DORCAS Pham/HCP ([phone]), as patient cannot see or hear well. -Orthopedic consult placed, f/u recommendations #HTN -Likely worsened by pain -Pain control, c/w home meds when not NPO #DM type II -NPO -ISS, FS Q6H, when started on diet please do consistent carb #Tobacco use -Nicotine patch #Urinary incontinence vs. urinary spasm? -C/w home med #DVT px -SCD, teds DISPOSITION: Admitted as acute inpatient with orthopedic surgery consulted to evaluate. Castro Uvaldo previously updated. VS,Fishbone, I+O VS, Fishbone, I+O Laboratory Tests 09/18/20 14:47 09/19/20 05:42 Vital Signs Date Time Temp Pulse Resp B/P (MAP) Pulse Ox O2 Delivery O2 Flow Rate FiO2 09/19/20 11:08 18 Room Air 09/19/20 06:24 158/90 (112) 09/19/20 06:00 97.5 71 94 I&O- Last 24 Hours up to 6 AM 09/19/20 06:00 Intake Total 2160 ml Output Total 2050 ml Balance 110 ml AHRJIT DE LA ROSA MD Sep 19, 2020 12:30
--- NOTE | 2020-09-19 13:22 | HPE ---
HISTORY AND PHYSICAL DATE OF ADMISSION: 09/18/2020 CHIEF COMPLAINT: Left femoral neck fracture. HISTORY OF PRESENT ILLNESS: This is a 80-year-old female seen today for left femoral neck fracture. She is extremely hard of hearing and has extremely poor eyesight. The history was from Dr. Durham, the hospitalist, as well as her son, Sb, with whom I spoke with on the phone. Apparently, the patient has a slip and fall on ice and was unable to ambulate. PAST MEDICAL HISTORY: Includes: 1. Hard of hearing. 2. Poor eyesight. 3. Type 2 diabetes. 4. HLD. 5. Hypomagnesemia. 6. Hypertension. 7. Urinary incontinence. PAST SURGICAL HISTORY: Includes: 1. Knee surgery. 2. Bladder surgery. SOCIAL HISTORY: Smoker, one pack per day for 40 years. No drug or alcohol use. Lives alone, is helped frequently by her son, Sb, who is her power of freight conductor and healthcare proxy. HOME MEDICATIONS: Include: - Tylenol - ASA - hydrochorothiazide - levocetirizine - montelukast - solifenacin succinate ALLERGIES: No known drug allergies. PHYSICAL EXAMINATION: This is a thin-appearing 80-year-old female. She is extremely hard of hearing. I am unable to communicate with her. She also has extremely poor vision. She is in obvious discomfort. VITAL SIGNS: Blood pressure 172/93, pulse rate 84, respiratory rate 18, 95% on room air. She has a closed injury to her left lower extremity. Thigh compartments are soft. She is able to dorsiflex and plantarflex her foot. sensation. The foot appears warm and well-perfused. Radiographs are reviewed, left hip and pelvis, that reveal a left femoral neck fracture. LABORATORY EXAMINATION: Hemoglobin 14.1. INR 1.01. COVID negative. ASSESSMENT/PLAN: This is a 80-year-old female with a displaced femoral neck fracture. This is generally recommended for surgery. I spoke with Sb, her healthcare proxy on the telephone this evening at around 1930. I explained the pros, cons, risks and benefits of nonsurgical management versus surgery in the form of hemiarthroplasty. Surgical risks include, but are not limited to infection, pain, stiffness, weakness, damage to surrounding structures, neurovascular injury, instability, failure of fixation where fracture insatiability, anesthetic complications, blood clots, , need for revision, need for further surgery and other risks not specified. He wishes to go ahead and signed the consent form for surgery. I marked the left lower extremity. He also signed the consent form for possible need of blood products. I confirmed two person consent with the nurse that was on the tyler this evening taking care of Ms. Davis. We will make her diet as tolerated at the moment and nothing by mouth at midnight in preparation for surgery tomorrow afternoon. They had no further questions.
[2020-09-19] MEDS ORDERED: BUPIVACAINE LIPOSOME/PF 1.3% 20ML VIAL (13.3MG/ML)(EXPAREL)(C9290 PER1MG) As Ordered ONE (15:35)
[2020-09-19] MEDS ORDERED: EPINEPHrine INJ 1 MG/ML 1ML AMP As Ordered ONE (15:36)
[2020-09-19] MEDS ORDERED: BUPIVACAINE HCL 0.25% 10ML VIAL As Ordered ONE (15:36)
[2020-09-19] MEDS ORDERED: KETAMINE HCL 200 MG/20 ML VIAL As Ordered ONE (15:41)
[2020-09-19] MEDS ORDERED: MIDAZOLAM INJ 2MG/2ML VIAL (J2250 PER 1MG) As Ordered ONE (15:42)
[2020-09-19] MEDS ORDERED: ceFAZolin 2 GM/D5W 50 ML IV BAG (J0690 PER 500MG) As Ordered ONE (16:08)
[2020-09-19] MEDS: ceFAZolin 1GM VIAL (J0690 PER 500MG) As Ordered ONE ×2 (16:13→16:33)
[2020-09-19] MEDS ORDERED: ONDANSETRON 4MG/2ML VIAL As Ordered ONE ×2 (17:01→19:02)
[2020-09-19] MEDS ORDERED: propofoL 200 MG/20 ML VIAL As Ordered ONE (17:58)
[2020-09-19] MEDS ORDERED: METOCLOPRAMIDE INJ 10MG/2ML VIAL (J2765 PER 1) As Ordered ONE (18:03)
[2020-09-19] MEDS ORDERED: fentaNYL 100 MCG/2 ML INJECTION (J3010) As Ordered ONE (19:02)
[2020-09-19] MEDS ORDERED: oxyCODONE 5MG TAB As Ordered ONE (19:29)
[2020-09-19] MEDS ORDERED: fentaNYL 100 MCG/2 ML INJECTION (J3010) IV PRN (19:45)
[2020-09-19] MEDS ORDERED: oxyCODONE 5MG TAB PO PRN (19:45)
[2020-09-19] MEDS ORDERED: LR 1,000 ML IV SCH (19:45)
[2020-09-19] MEDS ORDERED: METOCLOPRAMIDE INJ 10MG/2ML VIAL (J2765 PER 1) IV PRN (19:45)
[2020-09-19] MEDS ORDERED: HYDROMORPHONE HCL 0.5 MG/ 0.5 ML SYRINGE (J1170 PER 1) IV PRN (19:45)
--- NOTE | 2020-09-19 20:44 | RO ---
OPERATIVE NOTE DATE OF OPERATION: 09/19/2020 PREOPERATIVE DIAGNOSIS: Left femoral neck fracture. POSTOPERATIVE DIAGNOSIS: Left femoral neck fracture. PLANNED PROCEDURE: Left hip hemiarthroplasty, cemented. PROCEDURE PERFORMED: Left hip hemiarthroplasty, cemented. SURGEON: Adolfo Diego MD DENTAL BILLER: ANESTHESIOLOGIST: Dr. Chapin ANESTHESIA: Spinal anesthetic. OPERATIVE PREAMBLE: This is a 80-year-old female who sustained a mechanical fall, nondisplaced left femoral neck fracture. I discussed the pros, cons, risks, and benefits of going ahead with left hip hemiarthroplasty with her son. They wished to go ahead, marked the left lower extremity, signed the consent form, and proceeded to surgery. DESCRIPTION OF PROCEDURE: The patient was brought to the operating theater. She was administered spinal anesthetic. She was then administered 2 gm of IV Ancef prior to the start of the case. She was placed in left lateral decubitus with the aid of the [place] hip positioner. All bony prominences were padded. An axillary roll was used. SCD was used on the down leg. Carol Hugger employed. The limb was prepped and draped in the usual sterile fashion with chlorhexidine based prep solution, allowing over three minutes prep solution drying time prior to draping. A preoperative time-out was performed, confirming the site, the patient, and surgery. I began by making a standard lateral incision centered over the proximal aspect of the femur, slightly carried this posteriorly. I carried dissection down through skin and subcutaneous tissue, achieving meticulous hemostasis. I incised the tensor fascia milton in line with the skin incision. I sharply excised the anterior aspect of the abductors off the greater trochanter. I made a T-shaped capsulotomy, tagged both limbs with #1 Vicryl suture. I made my neck cut approximately 1 cm above the lesser trochanter and I had to recut this when trialing down to about 5 mm above the lesser trochanter. I achieved proper reduction with normal soft tissue tensioning. I removed the femoral head and sized this to be a size this to be a size 45 mm. I prepared the canal. I used pulse lavage. I inserted a size 2 distal cement restrictor to an appropriate depth. I mixed cement. I sequentially broached up to a size 3, trialed with this minus 3 mm neck, offset junction with size 45 mm head. This appeared appropriate, no evidence of impingement or dislocation with flexion, internal rotation or with external rotation and extension. Shuck test was normal. I chose these as my final components. Once the cement was appropriately firm, I cemented the canal using third-generation pressurized cementing techniques as well as vacuum mixing. I then inserted the femoral DePuy Synthes Rush stem in appropriate version. This was allowed to fully harden. Trunion was cleaned. Femoral neck taper inserted to minus 3 mm offset into the 45 mm head and then appropriately impacted into place after the trunion was cleaned. The hip was reduced and final stability and shuck test tested and found to be appropriate. I then prepared the capsulotomy as well as I prepared the abductors using transosseous bone tunnels with #2 FiberWire suture in a Tae Ramiro configuration. I then repaired the tensor fascia in a running configuration using #1 Stratafix. The subcutaneous tissue was closed with interrupted 2-0 Vicryl sutures and running 2-0 Vicryl sutures below. All incisions were thoroughly irrigated prior to end of closure. Skin closure was achieved with a Prineo wound dressing and it was allowed to thoroughly dry. The case was terminated. The patient was transferred off the operating table and taken to the postanesthetic care unit in stable condition. All sponge count, needle counts, and instrument counts were correct. No complications. Estimated blood loss: 100 mL. The plan for the patient is to be weightbearing as tolerated. She will be admitted to the hospital under the hospitalist service. PT and OT to see, weightbearing as tolerated. X-ray in postoperative recovery as well as Xarelto 10 mg p.o. once daily starting postop day one for VTE prophylaxis and Ancef 2 gm IV q.8h x two doses postoperatively. Follow up in the office in two weeks time. She may shower on the top of the incision starting postoperative day two.
[2020-09-19] MEDS: MORPHINE 2 MG/ML 1ML VIAL (J2270) IV PRN (23:18)
[2020-09-19] MEDS: LR 1,000 ML IV SCH (23:20)
[2020-09-19] MEDS: ACETAMINOPHEN TAB 650MG DOSE (2X325MG) PO PRN (23:35)
[2020-09-20] MEDS: ceFAZolin SOD 2 GM in IV 1 EA IV SCH ×2 (00:34→08:21)
[2020-09-20 01:00] VITALS: BP 132/74
[2020-09-20 01:01] VITALS: BP 132/74
[2020-09-20] MEDS: PERCOCET 5MG/325MG TAB PO PRN ×2 (02:26→10:56)
[2020-09-20] MEDS: MORPHINE 2 MG/ML 1ML VIAL (J2270) IV PRN ×4 (05:11→22:14)
[2020-09-20 06:00] VITALS: BP 136/75
[2020-09-20] MEDS: HumaLOG INSULIN (NovoLOG) PER UNIT SC SCH ×4 (06:00→17:30)
--- NOTE | 2020-09-20 06:31 | REP ---
INDICATION: POST OP PLACEMENT Status post arthroplasty. COMPARISON: None. TECHNIQUE: Single supine view of the pelvis. FINDINGS: Examination is limited by technique. Patient is status post satisfactory left hip replacement. Postsurgical changes including scattered subcutaneous emphysema and soft tissue swelling noted. IMPRESSION: Status post left hip replacement. <Electronically signed by Be Markham > 09/20/20 0660
[2020-09-20 06:34] LABS: HEMATOCRIT 32.1 % (36.0-47.0); HEMOGLOBIN 10.6 g/dl (12.0-15.5); MEAN CORPUSCULAR VOLUME 87.7 fl (80.0-96.0); PLATELET COUNT, AUTOMATED 172 10^3/uL (150-450); RED BLOOD COUNT 3.66 10^6/uL (4.00-5.40); WHITE BLOOD COUNT 6.7 10^3/uL (4.0-10.0)
[2020-09-20] MEDS: LR 1,000 ML IV SCH (06:45)
[2020-09-20 06:56] LABS: ALBUMIN 3.2 GM/DL (3.2-5.2); ALT/SGPT 17 U/L (12-78); BILIRUBIN,TOTAL 0.6 MG/DL (0.2-1.0); BLOOD UREA NITROGEN 15 MG/DL (7-18); CALCIUM LEVEL 9.3 MG/DL (8.8-10.2); CARBON DIOXIDE LEVEL 25 MEQ/L (21-32); CHLORIDE LEVEL 102 MEQ/L (98-107); CREATININE FOR GFR 0.83 MG/DL (0.55-1.30); GLOMERULAR FILTRATION RATE > 60.0 (>39); GLUCOSE, FASTING 106 MG/DL (70-100); POTASSIUM SERUM 3.5 MEQ/L (3.5-5.1); SODIUM LEVEL 137 MEQ/L (136-145); TOTAL PROTEIN 6.1 GM/DL (6.4-8.2)
[2020-09-20] MEDS: NICOTINE 21MG/24HR 1 EA TRANSDERMAL TD SCH (08:20)
--- NOTE | 2020-09-20 08:51 | IPN ---
PROGRESS NOTE DATE: 09/18/2020 CHIEF COMPLAINT: Postoperative day one, left hip cemented hemiarthroplasty. HISTORY: This is a 80-year-old female who had a left hip hemiarthroplasty yesterday during the day. She is doing reasonably well this morning. No concerns from the nursing staff overnight. PHYSICAL EXAMINATION: A 80-year-old female. She is confused and slightly agitated. The incision looks clean and dry. Dorsiflexing and plantarflexing her foot. Postoperative radiographs show the implant to be well-positioned, well-fixed. ASSESSMENT AND PLAN: A 80-year-old female who is postoperative day one from left hip hemiarthroplasty. She will be mobilized and I will follow her while she is in hospital.
--- NOTE | 2020-09-20 12:52 | IPNPDOC ---
Text Note Date of Service The patient was seen on 09/20/20. NOTE Subjective: Patient seen and examined at bedside. Confused and restless this morning. Objective: General: elderly, frail HEENT: NC/AT, deaf Lungs: CTA B/L Heart: +S1S2, RRR Abd: soft, NT, +BS A/P: 80F with PMHx including diabetes, hyperlipidemia, hypomagnesemia, hypertension, urinary incontinence/spasms?, Increased forgetfulness questionable age-related memory loss admitted for displaced left femoral neck fracture requiring orthopedic evaluation. #Displaced left femoral neck fracture s/p fall on ice - POD #1 left hip hemiarthroplasty - follow as per ortho - assistance appreciated #UTI - start ceftriaxone #confusion - baseline dementia, possible worsened with metabolic encephalopathy from UTI and surgery - as above for UTI - start antibiotic therapy #HTN #DM type II #Tobacco use -Nicotine patch #Urinary incontinence vs. urinary spasm? -C/w home med #DVT px -SCD, teds DISPOSITION: pending clinical improvement VS,Lenora, I+O VS, Jane, I+O Laboratory Tests 09/20/20 05:44 Vital Signs Date Time Temp Pulse Resp B/P (MAP) Pulse Ox O2 Delivery O2 Flow Rate FiO2 09/20/20 11:26 16 09/20/20 06:00 98.1 97 136/75 (95) 91 Room Air 09/19/20 18:17 10 I&O- Last 24 Hours up to 6 AM 09/20/20 06:00 Intake Total 1200 ml Output Total 1450 ml Balance -250 ml HARJIT DE LA ROSA MD Sep 20, 2020 12:52
[2020-09-20] MEDS: cefTRIAXone SOD 1 GM in D5W MINI-BAG PLUS 50 ML IV SCH (14:53)
[2020-09-20] MEDS ORDERED: HALOPERIDOL 5MG/ML VIAL (J1630 PER 1) IV PRN (15:00)
[2020-09-20] MEDS ORDERED: LORazepam 2 MG/ML VIAL IV ONE (16:30)
[2020-09-20] MEDS: RIVAROXABAN 10 MG TAB (XARELTO) PO SCH ×2 (18:00→21:49)
[2020-09-20] MEDS ORDERED: HumaLOG INSULIN (NovoLOG) PER UNIT SC SCH (21:00)
[2020-09-20] MEDS: ACETAMINOPHEN TAB 650MG DOSE (2X325MG) PO PRN (21:49)
[2020-09-20 22:00] VITALS: BP 107/86
[2020-09-21] MEDS: MORPHINE 2 MG/ML 1ML VIAL (J2270) IV PRN (06:30)
[2020-09-21] MEDS: HumaLOG INSULIN (NovoLOG) PER UNIT SC SCH ×2 (08:40→12:00)
[2020-09-21] MEDS: NICOTINE 21MG/24HR 1 EA TRANSDERMAL TD SCH (08:40)
[2020-09-21 09:53] LABS: HEMATOCRIT 32.8 % (36.0-47.0); HEMOGLOBIN 10.7 g/dl (12.0-15.5); MEAN CORPUSCULAR HEMOGLOBIN 28.8 pg (27.0-33.0); MEAN CORPUSCULAR HGB CONC 32.6 g/dl (32.0-36.5); MEAN CORPUSCULAR VOLUME 88.4 fl (80.0-96.0); PLATELET COUNT, AUTOMATED 176 10^3/uL (150-450); RED BLOOD COUNT 3.71 10^6/uL (4.00-5.40); WHITE BLOOD COUNT 6.9 10^3/uL (4.0-10.0)
[2020-09-21 10:41] LABS: BLOOD UREA NITROGEN 17 MG/DL (7-18); CALCIUM LEVEL 9.3 MG/DL (8.8-10.2); CARBON DIOXIDE LEVEL 28 MEQ/L (21-32); CHLORIDE LEVEL 100 MEQ/L (98-107); CREATININE FOR GFR 0.94 MG/DL (0.55-1.30); GLOMERULAR FILTRATION RATE > 60.0 (>39); GLUCOSE, FASTING 78 MG/DL (70-100); POTASSIUM SERUM 2.9 MEQ/L (3.5-5.1); SODIUM LEVEL 137 MEQ/L (136-145)
[2020-09-21] MEDS ORDERED: XARE10TA PO (10:47)
[2020-09-21] MEDS ORDERED: PERCOCET PO (10:47)
[2020-09-21] MEDS ORDERED: CEFD1CAP8 PO (10:51)
[2020-09-21] MEDS: KCL 10MEQ/100ML SWI (KRUN) 10 MEQ in IV 1 EA IV SCH ×4 (12:00→13:05)
[2020-09-21 12:09] LABS: MAGNESIUM LEVEL 2.1 MG/DL (1.8-2.4)
--- NOTE | 2020-09-21 13:06 | DS.PDOC ---
Discharge Summary General Date of Admission Sep 18, 2020 at 16:25 Date of Discharge 09/21/20 Discharge Summary PROCEDURES PERFORMED DURING STAY: left hip hemiarthroplasty DISCHARGE DIAGNOSES: # left hip fracture s/p fall s/p surgical repair # UTI # metabolic encephalopathy #HTN #DM #nicotine abuse #urinary incontinence/spasms #significant hearing loss/visual impairment COMPLICATIONS/CHIEF COMPLAINT: Left Displaced Femoral Neck Fracture. HISTORY OF PRESENT ILLNESS: 80 female with past medical history including diabetes, hyperlipidemia, hypomagnesemia, hypertension, urinary incontinence/spasms?, Increased forgetfulness questionable age-related memory loss who presented to [facility] emergency room after slipping on the ice and falling. The patient is very hard of hearing and also does not see well even with her glasses, so the majority of her history was given by her son Uvaldo (HCP, POA). The patient had immediate pain of her left hip and was brought to the emergency room for further evaluation. In the emergency room, blood pressure was slightly elevated but other vital signs were stable. Labs were unremarkable. Femoral XR: Left femoral neck fracture is visualized with angulation and displacement. And had severe pain 10/10. She is given 4 mg of IV morphine. On evaluation of her at the bedside it was very difficult to communicate with her through writing as her eyesight is poor and also very difficult through speaking as she was unable to understand anything I was saying verbally. I spoke with her son and healthcare proxy Uvaldo who updated me on the majority of her history. The patient will be admitted under my service for displaced left femoral neck fracture requiring orthopedic evaluation. HOSPITAL COURSE: Patient was seen in consultation by orthopedics. She underwent a left hip hemiarthroplasty. Immediately postop, there was some concern regarding confusion in the setting of urinary tract infection. Antibiotics were started. The following day she was back to her baseline mentation. Her anticoagulation has prescribed by orthopedics will be continued and will be managed by orthopedics. DISCHARGE MEDICATIONS: Please see below. ALLERGIES: Please see below. PHYSICAL EXAMINATION ON DISCHARGE: VITAL SIGNS: Please see below. General: elderly, frail HEENT: NC/AT, very hard of hearing, poor eyesight Lungs: CTA B/L Heart: +S1S2, RRR Abd: soft, NT, +BS Ext: no edema LABORATORY DATA: Please see below. ACTIVITY: [As tolerated]. DISPOSITION: Discharge to ARU DISCHARGE INSTRUCTIONS: 1. Check potassium and magnesium level 2. Continue post-op dvt prophylaxis as per ortho 3. PCP on discharge in 3-5 days DISCHARGE CONDITION: [Stable]. TIME SPENT ON DISCHARGE: 35 minutes. Vital Signs/I&Os Vital Signs Date Time Temp Pulse Resp B/P (MAP) Pulse Ox O2 Delivery O2 Flow Rate FiO2 09/21/20 06:40 18 Room Air 09/20/20 22:00 99.7 73 107/86 (93) 92 09/19/20 18:17 10 I&O- Last 24 Hours up to 6 AM 09/21/20 05:59 Intake Total 1650 ml Output Total 500 ml Balance 1150 ml Laboratory Data Labs 24H Laboratory Tests 2 09/20/20 21:59: Bedside Glucose (Misc Panel) 113H 09/21/20 09:39: Nucleated Red Blood Cells % (auto) 0.0, Anion Gap 9, Glomerular Filtration Rate > 60.0, Calcium Level 9.3, Magnesium Level 2.1 09/21/20 11:30: Bedside Glucose (Misc Panel) 71L CBC/BMP Laboratory Tests 09/21/20 09:39 FSBS Laboratory Tests Test 09/20/20 21:59 09/21/20 11:30 Range/Units Bedside Glucose (Misc Panel) 113 71 83-110 MG/DL Microbiology Microbiology 09/20/20 Blood Culture, Received Pending 09/20/20 Blood Culture, Received Pending 09/18/20 Urine Culture - Final, Complete Escherichia Coli Discharge Medications Scheduled Cefdinir (Cefdinir) 300 Mg Capsule, 1 CAP PO BID Levocetirizine Dihydrochloride (Levocetirizine Dihydrochloride) 5 Mg Tablet, 1 TAB PO QHS, (Reported) Metformin HCl (Metformin HCl) 500 Mg Tablet, 1 TAB PO BID, (Reported) Montelukast Sodium (Montelukast Sodium) 10 Mg Tablet, 1 TAB PO QHS, (Reported) Rivaroxaban (Xarelto) 10 Mg Tablet, 10 MG PO DAILY@18 Solifenacin Succinate (Solifenacin Succinate) 10 Mg Tablet, 1 TAB PO DAILY, (Reported) Solifenacin Succinate (Solifenacin Succinate) 5 Mg Tablet, 1 TAB PO DAILY, (Reported) Scheduled PRN Oxycodone/Acetaminophen (Oxycodone-Acetaminophen 5-325) 1 Each Tablet, 1 TAB PO Q6HP PRN for SEVERE PAIN (PS 8-10) Miscellaneous Medications Magnesium Oxide (Mag-Oxide) 200 Mg Tablet, 200 MG PO, (Reported) Mv-Mn/Iron/Folic Acid/Herb 190 (Vitamin D3 Complete Caplet) 1 Each Tablet, 1 TAB PO, (Reported) Allergies Coded Allergies: No Known Allergies (Unverified , 09/18/20) HARJIT DE LA ROSA MD Sep 21, 2020 13:06
[2020-09-21 13:12] VITALS: BP 107/86
[2020-09-21] MEDS ORDERED: POTASSIUM CHLORIDE 10 MEQ SR TABLET PO ONE (13:15)
[2020-09-21] MEDS: cefTRIAXone SOD 1 GM in D5W MINI-BAG PLUS 50 ML IV SCH (13:39)
[2020-09-21 14:00] VITALS: BP 108/71
== END 2020-09-21 15:20 | DRG 521 ==
LOC: M ED 14:11 → M ED INP 16:25 → M MSPAV 19:07 → M MS5PR 09-19 17:54
PROVIDERS: ADMIT Internal Medicine; ATTEND Internal Medicine
PROC: 0SRB0J9 Replacement of Left Hip Joint with Synthetic Substitute, Cemented, Open Approach (ICD-10-PCS; principal; 2020-09-19 14:00)
DX: S72.002A Fracture of unspecified part of neck of left femur, initial encounter for closed fracture (principal); G93.41 Metabolic encephalopathy; N39.0 Urinary tract infection, site not specified; F17.200 Nicotine dependence, unspecified, uncomplicated; E11.9 Type 2 diabetes mellitus without complications; E83.42 Hypomagnesemia; Z79.899 Other long term (current) drug therapy; I10 Essential (primary) hypertension; R32 Unspecified urinary incontinence; F03.90 Unspecified dementia, unspecified severity, without behavioral disturbance, psychotic disturbance, mood disturbance, and anxiety; W00.0XXA Fall on same level due to ice and snow, initial encounter; Y92.009 Unspecified place in unspecified non-institutional (private) residence as the place of occurrence of the external cause

== ENCOUNTER 2020-09-21 11:02 | Inpatient (IN) | payer MEDICARE, BC, OTHER ==
[~2020-09-21] VITALS: Ht 157.5 cm; Wt 53.9 kg
[~2020-09-21 11:02] MED LIST: ACET650T61 PO; CEFD1CAP8 PO; ECOT81TA5 PO; HYDR12CA PO; LEVOTAB10 PO; MAGN200T10 PO; METF500T13 PO; MONT10TA10 PO; PERCOCET PO; SOLI10TA PO; SOLI5TAB PO; VITATAB74 PO; XARE10TA PO
[2020-09-21 15:35] VITALS: BP 136/84
--- OUTSIDE RECORDS SUMMARY | 2020-09-21 15:59 | CCD ---
Author Author [facility] Organization [facility] Address Unknown Phone Unavailable Care Team Providers Care Speech Therapy Director Name Role Phone Jcarlos, Zakiya DO Unavailable [...] Unavailable Unavailable Jcarlos, Zakiya DO Unavailable Unavailable Jacrlos, Zakiya DO Unavailable Unavailable Jcarlos, Zakiya DO [...] Unavailable Jcarlos, Zakiya DO Unavailable Unavailable Jcarlos, Zaikya DO Unavailable Unavailable Jcarlos, Zakiya DO Unavailable [...] Unavailable Cong GALO MD Unavailable Unavailable Cong GAOL MD Unavailable Unavailable Cong GALO MD Unavailable [...] is protected by Article 27-F of the [facility] Public Health law. If you continue you may have access to information: Regarding HIV / AIDS; Provided by facilities licensed or operated by the [facility] Office of Mental Health; or Provided by the [facility] Office for People With Developmental Disabilities. If such information is present, then the following [facility] mandated warning applies: This information has been [...] law may result in a fine or long term sentence or both. A general authorization for [...] Zakiya diallo DO 01/31/2020 11:48:16 AM EDT [facility] Recurring Patient Referrer: Zakiya Garber DO 01/19/2020 12:4 1:01 PM EDT [facility] Recurring Patient Referrer: Zakiya Garber DO 01/19/2020 12:3 9:13 PM EDT [facility] Outpatient Attender: Zakiya Glaser 01/10 10:40:00 AM EDT [facility] ([facility] ) Immunizations Vaccine Date Status Description Data Source(s) Influenza, injectable, MDCK, preservative free, bryant valent 06/27/2020 10:16:00 AM EST completed [facility]) Medications Medication Brand Name Start Date Product Form Dose Route Admi nistrative Instructions Pharmacy Instructions Status Indications Reaction Description Data Source(s) 100 mcg/0.5 mL 09/04/2020 12:00:00 AM EST suspension 0 INJECT BY [facility] (FIRST DOSE) INJECT BY [facility] (FIRST DOSE) SOLD: 09/04/2020 [facility] 5 mg 06/27/2020 12:00:00 AM EST tablet 90 TAKE ONE TABLET BY MOUTH AT BEDTIME TAKE ONE TABLET BY MOUTH AT BEDTIME SOLD: 07/06/2020 [facility] Administration Of Flu Vaccine 06/27/2020 12:00:00 AM EST completed [facility]) Medication administered onsite Metformin hydrochloride [...] TABLET BY MOUTH EVERY DAY SOLD: 06/21/2020 [facility] 10 mg 02/25/2020 12:00:00 AM EDT [...] 12:00:00 AM EDT ORAL active M [facility] ([facility]) 15 mg 01/31/2020 12:00:00 AM EDT tablet 30 TAKE ONE TABLET BY MOUTH EVERY DAY WITH FOOD NEEDED TAKE ONE TABLET BY MOUTH EVERY DAY WITH FOOD NEEDED SOLD: 02/12/2020 [facility] solifenacin succinate 5 MG Oral Tablet Solifenacin Succinate 01/11/2020 12:00:00 AM EDT ORAL completed [facility] ([facility]) 5 mg 01/11/2020 12:00:00 AM EDT [...] AT BEDTIME SOLD: 12/18/2019 [facility] 5 mg 04/14/2019 12:00:00 AM EDT tablet [...] type / Coverage type Policy ID Covered alliance party ID Covered alliance party's relationship to avery Policy Avery Plan Information MEDICARE [id number] SP [id number] [facility] [id number] SP [id number] BCBS EMPIRE KATHY DIV [id number] SP [id number] MEDICARE [id number] SP [id number] A MEDICARE C [id number] S [id number] EMPIRE (STATE EMP) O [id number] S [id number] MEDICARE C [id number] S [id number] A [place] Plan F [id number] SELF [id number] DME Jurisdiction A [facility] [id number] SELF [id number] Medicare C [id number] SELF [id number] [facility] [place] Medigap Part B [id number] Family Dep endent [id number] [facility] [place] Medigap Part B [id number] Self [id number] Medicare Natl Govt Servic Medicare Primary [id number] Self [id number] MEDICARE [id number] SP [id number] A [facility] [id number] SP [id number] BCBS EMPIRE KATHY DIV [id number] SP [id number] [facility] [place] Medigap Part B [id number] Family Dep endent [id number] [facility] [place] Medigap Part B [id number] Self [id number] Medicare Natl Govt Servic Medicare Primary [id number] Self [id number] EMPIRE (STATE EMP) O [id number] S [id number] EMPIRE (STATE EMP) O [id number] S [id number] [employer] [facility] [place] Medigap Part B [id number] Family Dep endent [id number] [facility] [place] Medigap Part B [id number] Self [id number] Medicare [place] Govt Servic Medicare Primary [id number] Self [id number] [facility] [place] Medigap Part B [id number] Family Dep endent [id number] [facility] [place] Medigap Part B [id number] Self [id number] Medicare Natl Govt Servic Medicare Primary [id number] Self [id number] Medicare [place] Medicare Primary [id number] Self [id number] UNITED HEALTHCARE O [id number] S [id number] UNITED HEALTHCARE [id number] SP [id number] BCBS EMPIRE KATHY DIV [id number] SP [id number] BCBS EMPIRE KATHY DIV [id number] [id number] UNITED HEALTHCARE [id number] HU2 89 [id number] [place] Medicare Primary [id number] Self [id number] [employer] [facility] [place] Medigap Part B [id number] Family Dep endent [id number] [facility] [place] Medigap Part B [id number] Self [id number] Medicare [place] Govt Servic Medicare Primary [id number] Self [id number] [employer] [facility] [place] Medigap Part B [id number] Family Dep endent [id number] [facility] [place] Medigap Part B [id number] Self [id number] Medicare [place] Govt Servic Medicare Primary [id number] Self [id number] [facility] [place] Medigap Part B Family Dep endent Medicare Natl Govt Servic Medicare Primary Self [id number] A Surgeries/Procedures Procedure Description Date Indications Data Source(s) Mammogram 02/07/2020 12:00:00 AM FELISHA ARCOS ([facility]) Results ID Date Data Source [id number] 09/18/2020 02:47:00 PM EST [facility] Name Value Range Interpretation Code Description Data Emperatriz rce(s) Supporting Document(s) SARS coronavirus 2 RNA [Presence] in Res piratory specimen by MARCELLA with probe detection NEGATIVE [facility] This lab was ordered by [facility] a nd reported by [facility]. ID Date Data Source [id number] 06/26/2020 08:13:00 AM EST [facility] ([facility]) Name Value Range Interpretation Code Description Data Emperatriz rce(s) Supporting Document(s) Creatinine 1.0 mg/dL 0.6-1.3 [facility] ([facility]) Glucose [Mass/volume] in Serum or Plasma 89 mg/dL 74-99 [facility] ([facility]) 100-125 mg/dL PRE-DIABETES/FASTING >126 mg/dL DIABETES/FASTING Urea nitrogen [Mass/volume] in Serum or Plasma 18 mg/dL 7-18 [facility] ([facility]) Chloride [Moles/volume] in Serum or Plasma 102 meq/L 98-107 [facility] ([facility]) Sodium [Moles/volume] in Serum or Plasma 142 meq/L 136-145 [facility] ([facility]) Potassium [Moles/volume] in Serum or Plasma 4.5 meq/L 3.5-5.1 [facility] ([facility]) Calcium [Mass/volume] in Serum or Plasma 9.8 mg/dL 8.5-10.1 [facility] ([facility]) Carbon dioxide, total [Moles/volume] in Serum or Plasma 32 meq/L 21 -32 [facility] ([facility]) Total Bilirubin 0.3 mg/dL 0.2-1.0 [facility] ([facility]) Alkaline phosphatase isoenzyme [Units/volume] in Serum or Pl asma 74 mg/dL 46-116 [facility] ([facility]) Albumin [Mass/volume] in Serum or Plasma 4.0 g/dL 3.4-5.0 [facility] ([facility]) Alanine aminotransferase [Enzymatic activity/volume] in Seru m or Plasma 11 U/L 12-78 [facility] ([facility]) Aspartate aminotransferase [Enzymatic activity/volume] in Serum or Plasma 14 U/L 15-37 [facility] A/G Ratio 1.18 CALC 1.00-1.90 [facility] ([facility]) Glomerular filtration rate/1.73 sq M pre dicted among non-blacks [Volume Rate/Area] in Serum or Plasma by Creatinine-based formula (MDRD) 54 mL/min [facility]) Glomerular filtration rate/1.73 sq M pre dicted among blacks [Volume Rate/Area] in Serum or Plasma by Creatinine-based formula (MDRD) Laboratory test result [facility] ([facility]) <content>CHRONIC KIDNEY DISEASE STAGING PER NKF</content>
<content></content>
<content>STAGE I & II GFR >= 60 NORMAL TO MILDLY DECREASED</content>
<content>STAGE III GFR 30-59 MODERATELY DECREASED</content>
<content>STAGE IV GFR 15-29 SEVERELY DECREASED</content>
<content>STAGE V GFR <15 VERY LITTLE GFR LEFT</content>
<content>ESRD GFR <15 ON PRODUCT SUPPORT ENGINEER</content>
<content></content> Proteinase 3 Ab [Units/volume] in Serum 7.4 g/dL 6.4-8.2 [facility] ([facility]) ID Date Data Source [id number] 06/26/2020 08:13:00 AM EST [facility] ([facility]) Name Value Range Interpretation Code Description Data Emperatriz rce(s) Supporting Document(s) Hemoglobin A1c/Hemoglobin.total in Blood 5.9 % [facility] ([facility]) Lab Result Notes: Pre-Diabetes 5.7 - 6.4 % Diabetes = or > 6.5% Glucose mean value [Mass/volume] in Blood Estimated fr om glycated hemoglobin 123 mg/dL 60-110 [facility] ([facility] ) ID Date Data Source [id number] 06/26/2020 08:13:00 AM EST [facility] Name Value Range Interpretation Code Description Data Emperatriz rce(s) Supporting Document(s) Leukocytes [#/volume] in Blood by Automated count 4.8 x10*3/UL 4.1-10 .9 [facility] ([facility]) Erythrocytes [#/volume] in Blood by Automated count 4.53 x10*6/UL 4.2 0-6.30 [facility] ([facility]) Hematocrit [Volume Fraction] of Blood by Automated count 39.0 % 3 7.0-51.0 [facility] ([facility]) Hemoglobin [Mass/volume] in Blood 13.4 g/dL 12.0-18.0 [facility] ([facility]) MCH 29.6 pg 26.0-32.0 [facility]) Erythrocyte distribution width [Ratio] by Automated count 13.3 % 11.6-13.7 [facility] ([facility]) MCHC 34.4 g/dL 31.0-38.0 [facility]) MCV 86.1 fL 80.0-97.0 [facility] Platelets [#/volume] in Blood by Automated count 285 x10*3/UL 140-440 [facility] ([facility]) Lymph % 29.5 % 10.0-58.5 [facility]) MPV 7.8 FL 7.8-11.0 [facility] Lymph # 1.4 x10*3/UL 0.6-4.1 [facility] ([facility]) Neut % 62.7 % 37.0-92.0 [facility]) Mid % 7.8 % 1.7-9.3 [facility]) Mid # 0.4 x10*3/UL 0.1-0.6 [facility] ([facility]) Neut # 3.0 x10*3/UL 2.0-7.8 [facility] ([facility]) ID Date Data Source [id number] 02/07/2020 12:00:00 AM EDT [facility] Zakiya Garber DO Patient Name: SANDI [id number] [facility] Date of : [id number] [id number] Date of Exam: 02/07/2020KAPIL Catalan [id number]#: Fax: [id number] EXAM: MAMMO SCREENING WITH CADCLINICAL [...] of the mammogram in detecting cancer isdecreased.[facility], the breasts areheterogeneously dense which may obscure small masses.IMPRESSION:BI-RADS Category 2 - Benign Finding(s). Stable mammogram. There is noevidence of malignant alteration of the breasts. Followup examinationrecommended in one year.This mammogram was read with the assistance of [employer]lesha Padilla [employer] an FDAapproved computer aided detection system for [...] rce(s) Supporting Document(s) ID Date Data Source [id number] 01/31/2020 11:48:16 AM EDT [facility], PCName: Adair DavisDOB: 2Provider: Salma [...] DAILY WITH FOOD PRNMDD:1 Rx By: Shell Galo; Dispense: 0 Days ; #:30 T ablet; Refill: 0;For: Right shoulder pain; SANDI = N; Sent To: [facility]; Last Updated By: Corrina Villagran; 01/31/2020 [...] pain; Ordered By: Shell Galo Performed: Due: 14Feb2020; Last Updated By: Corrina Villagran; 01/31/2020 11:46:37 AMPT Protocol : Evaluate and treat as indicated, per protocol or as previously written.Duration: : Six WeeksPT Frequency : Two or three times a weekLaterality and Body Part : right shoulder impingement This document was dictated and electronically signed using [employer] software. A reasonable attempt at proof reading has been made to minimize errors. Please call with any questions. Signatures Electronically signed by : Shell Galo M.D.; Jan 31 2020 11:48AM EST (Author) Name Value Range Interpretation Code Description Data Emperatriz rce(s) Supporting Document(s) ID Date Data Source [id number] 01/07/2020 08:07:00 AM EDT [facility] ([facility]) Name Value Range Interpretation Code Description Data Emperatriz rce(s) Supporting Document(s) Thyrotropin [Units/volume] in Serum or Plasma by Detec tion limit <= 0.05 mIU/L 0.90 uIU/mL 0.36-3.74 [facility] ([facility] ) ID Date Data Source [id number] 01/07/2020 08:07:00 AM EDT [facility] ([facility]) Name Value Range Interpretation Code Description Data Emperatriz rce(s) Supporting Document(s) Triglyceride [Mass/volume] in Serum or Plasma 163 mg/dL 30-150 [facility] ([facility]) Cholesterol in HDL [Mass/volume] in Serum or Plasma 47 mg/dL 35-60 [facility] ([facility]) Cholesterol [Mass/volume] in Serum or Plasma 222 mg/dL 131-200 [facility] ([facility]) Cholesterol in LDL [Mass/volume] in Serum or Plasma by calcu lation 142 CALC 50-159 [facility] ([facility]) ID Date Data Source [id number] 01/07/2020 08:07:00 AM EDT [facility] ([facility]) Name Value Range Interpretation Code Description Data Emperatriz rce(s) Supporting Document(s) Urea nitrogen [Mass/volume] in Serum or Plasma 21 mg/dL 7-18 [facility] ([facility]) Glucose [Mass/volume] in Serum or Plasma 108 mg/dL 74-99 [facility] ([facility]) 100-125 mg/dL PRE-DIABETES/FASTING >126 mg/dL DIABETES/FASTING Creatinine 1.4 mg/dL 0.6-1.3 [facility] Sodium [Moles/volume] in Serum or Plasma 145 meq/L 136-145 [facility] ([facility]) Potassium [Moles/volume] in Serum or Plasma 4.4 meq/L 3.5-5.1 [facility] ([facility]) Chloride [Moles/volume] in Serum or Plasma 105 meq/L 98-107 [facility] ([facility]) Carbon dioxide, total [Moles/volume] in Serum or Plasma 31 meq/L 21 -32 [facility] ([facility]) Alkaline phosphatase isoenzyme [Units/volume] in Serum or Pl asma 75 mg/dL 46-116 [facility] ([facility]) Calcium [Mass/volume] in Serum or Plasma 10.0 mg/dL 8.5-10.1 [facility] ([facility]) Aspartate aminotransferase [Enzymatic activity/volume] in Serum or Plasma 15 U/L 15-37 [facility] ([facility] ) Alanine aminotransferase [Enzymatic activity/volume] in Seru m or Plasma 14 U/L 12-78 [facility] ([facility]) Total Bilirubin 0.3 mg/dL 0.2-1.0 [facility] ([facility]) Proteinase 3 Ab [Units/volume] in Serum 7.4 g/dL 6.4-8.2 [facility] ([facility]) Glomerular filtration rate/1.73 sq M pre dicted among non-blacks [Volume Rate/Area] in Serum or Plasma by Creatinine-based formula (MDRD) 36 mL/min [facility] ([facility]) Albumin [Mass/volume] in Serum or Plasma 3.9 g/dL 3.4-5.0 [facility] ([facility]) A/G Ratio 1.11 CALC 1.00-1.90 [facility]) Glomerular filtration rate/1.73 sq M pre dicted among blacks [Volume Rate/Area] in Serum or Plasma by Creatinine-based formula (MDRD) 44 mL/min [facility] ([facility]) <content>CHRONIC KIDNEY DISEASE STAGING PER NKF</content>
<content></content>
<content>STAGE I & II GFR >= 60 NORMAL TO MILDLY DECREASED</content>
<content>STAGE III GFR 30-59 MODERATELY DECREASED</content>
<content>STAGE IV GFR 15-29 SEVERELY DECREASED</content>
<content>STAGE V GFR <15 VERY LITTLE GFR LEFT</content>
<content>ESRD GFR <15 ON PRODUCT SUPPORT ENGINEER</content>
<content></content> ID Date Data Source [id number] 01/07/2020 08:07:00 AM EDT [facility] ([facility]) Name Value Range Interpretation Code Description Data Emperatriz rce(s) Supporting Document(s) Leukocytes [#/volume] in Blood by Automated count 5.6 x10*3/UL 4.1-10 .9 [facility] ([facility]) Hemoglobin [Mass/volume] in Blood 12.4 g/dL 12.0-18.0 [facility] ([facility]) Erythrocytes [#/volume] in Blood by Automated count 4.38 x10*6/UL 4.2 0-6.30 [facility] ([facility]) Hematocrit [Volume Fraction] of Blood by Automated count 37.4 % 3 7.0-51.0 [facility] ([facility]) MCV 85.4 fL 80.0-97.0 [facility] [facility]) MCHC 33.2 g/dL 31.0-38.0 [facility] [facility]) MCH 28.3 pg 26.0-32.0 [facility] [facility]) Platelets [#/volume] in Blood by Automated count 276 x10*3/UL 140-440 [facility]) Erythrocyte distribution width [Ratio] by Automated count 14.0 % 11.6-13.7 [facility] ([facility]) Lymph % 28.3 % 10.0-58.5 [facility]) MPV 8.0 FL 7.8-11.0 [facility]) Neut % 63.5 % 37.0-92.0 [facility]) Lymph # 1.5 x10*3/UL 0.6-4.1 [facility] ([facility]) Mid % 8.2 % 1.7-9.3 [facility]) Mid # 0.6 x10*3/UL 0.1-0.6 [facility] ([facility]) Neut # 3.5 x10*3/UL 2.0-7.8 [facility] ([facility]) Procedure Vital Signs ID Date Data Source [id number] Name Value Range Interpretation Code Description Data Source(s) Diastolic blood pressure 88 mm[Hg] 88 mm[Hg] [facility] ([facility]) Systolic blood pressure 160 mm[Hg] 160 mm[Hg] M [facility]ENT ([facility]) Body mass index (BMI) [Ratio] 19.9 kg/m2 19.9 k g/m2 [facility] ([facility]) Body weight 110.38 [lb_av] 110.38 [lb_av] [facility] T ([facility]) Body height 62.5 [in_i] 62.5 [in_i] [facility]) 5'2.50" Body mass index (BMI) [Ratio] 21.8 kg/m2 21.8 k g/m2 [facility] ([facility]) Oxygen saturation in Arterial blood by Pulse oximetry 97 % 97 % [facility] ([facility]) RM Air Body weight 121.00 [lb_av] 121.00 [lb_av] [facility] T ([facility]) Body height 62.5 [in_i] 62.5 [in_i] [facility] ([facility]) 5'2.50" Heart rate 78 /min 78 /min [facility] ([facility]) Diastolic blood pressure 84 mm[Hg] 84 mm[Hg] [facility] ([facility]) Systolic blood pressure 132 mm[Hg] 132 mm[Hg] M JOSSELYN ([facility])
[2020-09-21] MEDS ORDERED: GLUCOSE 4GM CHEW TABLET PO PRN (18:15)
[2020-09-21] MEDS ORDERED: BISACODYL 10 MG SUPP PR PRN (18:15)
[2020-09-21] MEDS ORDERED: DEXTROSE 50% 50 ML SYRINGE IV PRN (18:15)
[2020-09-21] MEDS ORDERED: GLUCAGON INJ 1MG VIAL SC PRN (18:15)
[2020-09-21] MEDS ORDERED: PILL CUTTER 1 EACH XX PRN (18:30)
[2020-09-21] MEDS: RIVAROXABAN 10 MG TAB (XARELTO) PO SCH (18:52)
[2020-09-21] MEDS: oxyCODONE 5MG TAB PO PRN (18:55)
[2020-09-21 20:00] VITALS: BP 132/77
[2020-09-21] MEDS: HumaLOG INSULIN (NovoLOG) PER UNIT SC SCH (21:00)
[2020-09-21] MEDS: MAGNESIUM OXIDE 400MG TAB (MAG-OX) PO SCH (21:32)
[2020-09-21] MEDS: DOCUSATE SODIUM 100MG CAPSULE PO SCH (21:33)
[2020-09-21] MEDS: CEFDINIR 300 MG CAP (OMNICEF) PO SCH (21:33)
[2020-09-21] MEDS: MONTELUKAST 10 MG TAB PO SCH (21:33)
[2020-09-21] MEDS: LACTOBACILLUS ACIDOPHILUS CAP (BACID) PO SCH (21:33)
[2020-09-21] MEDS: SENNA 8.6 MG TAB (SENOKOT) PO SCH (21:33)
[2020-09-21] MEDS: QUEtiapine FUMARATE 12.5 MG HALF-TAB PO PRN (21:33)
[2020-09-21] MEDS: REMEDY PHYTOPLEX Z-GUARD PASTE 113GM TUBE (FROM STOREROOM PRODUCT) TOP SCH (21:34)
[2020-09-21] MEDS: ACETAMINOPHEN 500 MG TAB PO SCH (21:35)
[2020-09-21] MEDS: IPRATROPIUM 0.5MG/ALBUTEROL 2.5MG INH SOL UD 3ML (DUONEB) NEB SCH (21:54)
[2020-09-22 05:17] VITALS: BP 113/76
[2020-09-22 06:51] LABS: BASO % 0.3 % (0.0-1.0); HEMATOCRIT 29.7 % (36.0-47.0); HEMOGLOBIN 9.7 g/dl (12.0-15.5); LYMPH # 1.1 10^3/uL (1.5-5.0); LYMPH % 17.6 % (24.0-44.0); MEAN CORPUSCULAR HEMOGLOBIN 29.1 pg (27.0-33.0); MEAN CORPUSCULAR HGB CONC 32.7 g/dl (32.0-36.5); MEAN CORPUSCULAR VOLUME 89.2 fl (80.0-96.0); MONO # 0.7 10^3/uL (0.0-0.8); MONO % 10.4 % (0.0-5.0); NEUTROPHILS # 4.6 10^3/uL (1.5-8.5); NEUTROPHILS % 71.4 % (36.0-66.0); PLATELET COUNT, AUTOMATED 181 10^3/uL (150-450); RED BLOOD COUNT 3.33 10^6/uL (4.00-5.40); WHITE BLOOD COUNT 6.5 10^3/uL (4.0-10.0)
[2020-09-22] MEDS: HumaLOG INSULIN (NovoLOG) PER UNIT SC SCH ×4 (07:30→22:00)
--- NOTE | 2020-09-22 07:32 | HPEPDOC ---
Occ Med Physician Note DATE OF ADMISSION: 09-21-20 DATE OF SERVICE: 09-21-20 TIME OF ADMISSION: Please refer to physician's admission order. SOURCE OF ADMISSION INFORMATION: [facility] record and patient CHIEF COMPLAINT: hip fracture HISTORY OF PRESENT ILLNESS: 80F pmh DM, HTN, hypomagnesemia, HTN, urinary incontinence, possible dementia, [place] despite use of hearing aids, low vision who fell at home and presented to [facility] ED on 09-19-20 where she was diagnosed with a left femoral fracture. She was cleared by medicine and evaluated by orthopedics who performed a left hip hem iarthroplasty on 09-19-20 without immediate post-op complications. She was diagnosed with an E. coli UTI and started on oral antibiotics, had difficulty with pain control, and limitations in therapy due to recent surgery and having very low hearing. She was deemed medically appropriate for discharge to ARU on 09-21-20 for mobility and ADL impairments. REVIEW OF SYSTEMS: The following is a completed review of systems and has been reviewed. Review of systems otherwise unremarkable. PAIN: Patient self reports neck stiffness and left hip pain EYES: +low vision EARS, NOSE, & THROAT: +[place] CARDIOVASCULAR: Denies chest pain or palpitations PULMONARY: Denies shortness of breath. GASTROINTESTINAL: Denies constipation/diarrhea GENITOURINARY:+incontinence MUSCULOSKELETAL: left hip fracture NEUROLOGICAL: no tremor or paresis HEMATOLOGICAL: no easy bruising SKIN: left hip incision PSYCHIATRIC: Unremarkable All other review of systems found to be negative. PAST MEDICAL HISTORY: as per hpi PAST SURGICAL HISTORY: knee surgery, bladder surgery ALLERGIES: Please see below. MEDICATIONS: Please see below. FAMILY HISTORY: cardiac SOCIAL HISTORY: former smoker, no etoh/illicit drugs DIET: consistent carb PHYSICAL EXAMINATION: VITAL SIGNS: Please see below. GENERAL: Pleasant and cooperative. No acute distress. HEENT: PERRL. Extraocular movements intact. Clear conjunctiva CARDIOVASCULAR: Regular rate and rhythm. No murmurs, rubs, or gallops LUNGS: Clear to auscultation bilaterally. No wheezes. No rhonchi ABDOMEN: Soft, nontender, nondistended. Positive bowel sounds. Normal active bowel sounds NEUROLOGICAL: difficult to assess orientation as patient very [place]. Cranial nerves II through XII grossly intact. Sensation grossly intact EXTREMITIES: 5\5 strength bilateral upper extremities. >\5 strength right lower extremity. right LE 5/5, Left LE 5/5 ankle DF/EHL/PF (limited due to recent surgery SKIN: left hip dermabond, no induration LABORATORY DATA: Please see below. IMAGING:Imaging documentation personally reviewed by record FUNCTIONAL STATUS: Premorbid: Independent with all activities of daily life as well as mobility. On Admission: standby to max assist for functional transfers, bed mobiltiy, ambulation, dressing GOALS: Mod-I for functional transfers, ambulating household distances, dressing, bathing, toileting ASSESSMENT:80-year-old F with past medical history of who presents status post left hip fracture PLAN: 1. Rehab- PT/OT advancce mobility and ADLs, strengthen/stretch/maintain ROM all 4l limbs 2. ortho- s/p left hip fracture and hemiarthroplasty- WBAT 3. cardiac- hx of htn, monitor off BP meds for now, medicine consulted to assist in overall management 4. Resp- Hx of smoking, c/u monteleukast and DUonebs, monitor for infection 5. Hypomagenesemia- c/u oral supplement and oral potassium 6. - c/u cefdinir for e coli UTI 7. psych- seroquel prn for episodes of delirium 8. Pain- tylenol and oxycodone 9. DVT ppx- xarelto 10. GI ppx- protonix 11. Endo- hx of DM c/u ISS and consistent carb diet 12. Dspo- TBD POST ADMISSION PHYSICIAN EVALUATION: Medical and functional status: Description of medical status, medical assessment: As above. Rehabilitation diagnosis and current and prior cold morbid medical conditions as above. Risk of complications and plans to mitigate them as above. Description of functional status current status is as above. Prior status as above. Status compared to preadmission: There are no clinically significant differences between the patient's current status and the information described on the preadmission screening document. Treatment plan anticipated: Treatment plan is as described above. Required disciplines including physical therapy, occupational therapy, others as noted above Intensity of services: 3 hours a day,6 days a week. Special considerations: There are no specific special or safety considerations that would likely preclude immediate implementation of an intensive rehabilitation program or subsequently influence the plan of care. ATTESTATION: Considering all the information above, it is my best judgment that this patient requires intensive rehabilitation therapy as described above and an inpatient hospital environment due to the complexity of nursing, medical, and rehabilitation needs required by the patient. Furthermore, this patient can reasonably be expected to participate in an benefit from an inpatient rehabilitation stay with an interdisciplinary team approach to the delivery of rehabilitation care under the direction and supervision of rehabilitation physician. PROGNOSIS: good. ESTIMATED LENGTH OF STAY:10-14 days. PROJECTED DISCHARGE DESTINATION: Home with family support and any durable medical equipment required to increase functional safety and mobility. TIME SPENT COUNSELING AND COORDINATING INITIAL CARE: Greater than 70 minutes. Vital Signs Vital Sign - Last 24 Hours 09/21/20 09/21/20 09/21/20 09/21/20 15:35 18:55 19:25 20:00 Temp 97.8 99.0 Pulse 76 88 Resp 20 18 19 19 B/P (MAP) 136/84 (101) 132/77 (95) Pulse Ox 96 97 O2 Delivery Room Air Room Air Room Air 09/21/20 09/21/20 09/22/20 21:57 21:57 05:17 Temp 97.8 Pulse 76 76 78 Resp 16 15 18 B/P (MAP) 113/76 (88) Pulse Ox 97 O2 Delivery Room Air Laboratory Data CBC/BMP Laboratory Tests 09/22/20 06:09 Labs 24H Laboratory Tests 2 09/21/20 19:42: Bedside Glucose (Misc Panel) 109 09/22/20 04:47: Bedside Glucose (Misc Panel) 85 09/22/20 06:09: Immature Granulocyte % (Auto) 0.3, Neutrophils (%) (Auto) 71.4H, Lymphocytes (%) (Auto) 17.6L, Monocytes (%) (Auto) 10.4H, Eosinophils (%) (Auto) 0.0, Basophils (%) (Auto) 0.3, Neutrophils # (Auto) 4.6, Lymphocytes # (Auto) 1.1L, Monocytes # (Auto) 0.7, Eosinophils # (Auto) 0.0, Basophils # (Auto) 0.0, Nucleated Red Blood Cells % (auto) 0.0 FSBS Laboratory Tests Test 09/21/20 19:42 09/22/20 04:47 Range/Units Bedside Glucose (Misc Panel) 109 85 83-110 MG/DL Home Medications Scheduled Cefdinir (Cefdinir) 300 Mg Capsule, 1 CAP PO BID Levocetirizine Dihydrochloride (Levocetirizine Dihydrochloride) 5 Mg Tablet, 1 TAB PO QHS, (Reported) Metformin HCl (Metformin HCl) 500 Mg Tablet, 1 TAB PO BID, (Reported) Montelukast Sodium (Montelukast Sodium) 10 Mg Tablet, 1 TAB PO QHS, (Reported) Rivaroxaban (Xarelto) 10 Mg Tablet, 10 MG PO DAILY@18 Solifenacin Succinate (Solifenacin Succinate) 10 Mg Tablet, 1 TAB PO DAILY, (Rep orted) Solifenacin Succinate (Solifenacin Succinate) 5 Mg Tablet, 1 TAB PO DAILY, (Reported) Scheduled PRN Oxycodone/Acetaminophen (Oxycodone-Acetaminophen 5-325) 1 Each Tablet, 1 TAB PO Q6HP PRN for SEVERE PAIN (PS 8-10) Allergies Coded Allergies: No Known Allergies (Unverified , 09/18/20) A-FIB/CHADSVASC A-FIB History Current/History of A-Fib/PAF?: No Current PO Anticoag Therapy: No PINO GUERIN MD Sep 22, 2020 07:32
[2020-09-22 07:36] LABS: ALBUMIN 2.6 GM/DL (3.2-5.2); ALT/SGPT 11 U/L (12-78); BILIRUBIN,TOTAL 0.7 MG/DL (0.2-1.0); BLOOD UREA NITROGEN 18 MG/DL (7-18); CALCIUM LEVEL 8.8 MG/DL (8.8-10.2); CARBON DIOXIDE LEVEL 29 MEQ/L (21-32); CHLORIDE LEVEL 103 MEQ/L (98-107); CREATININE FOR GFR 0.76 MG/DL (0.55-1.30); GLOMERULAR FILTRATION RATE > 60.0 (>39); GLUCOSE, FASTING 89 MG/DL (70-100); SODIUM LEVEL 138 MEQ/L (136-145); TOTAL PROTEIN 5.6 GM/DL (6.4-8.2)
[2020-09-22] MEDS: IPRATROPIUM 0.5MG/ALBUTEROL 2.5MG INH SOL UD 3ML (DUONEB) NEB SCH ×3 (07:45→19:49)
[2020-09-22] MEDS: DOCUSATE SODIUM 100MG CAPSULE PO SCH ×2 (09:00→21:21)
[2020-09-22] MEDS: ACETAMINOPHEN 500 MG TAB PO SCH ×3 (09:28→21:20)
[2020-09-22] MEDS: PANTOPRAZOLE 40MG TAB (PROTONIX) PO SCH (09:29)
[2020-09-22] MEDS: POTASSIUM CHLORIDE 10 MEQ SR TABLET PO SCH (09:29)
[2020-09-22] MEDS: CEFDINIR 300 MG CAP (OMNICEF) PO SCH ×2 (09:29→21:20)
[2020-09-22] MEDS: FERROUS GLUCONATE 324 MG TAB PO SCH (09:29)
[2020-09-22] MEDS: FOLIC ACID 1 MG TAB PO SCH (09:29)
[2020-09-22] MEDS: VITAMIN D 1,000 INTERNATIONAL UNITS TABLET PO SCH (09:29)
[2020-09-22] MEDS: LACTOBACILLUS ACIDOPHILUS CAP (BACID) PO SCH ×4 (09:31→21:21)
[2020-09-22] MEDS: REMEDY PHYTOPLEX Z-GUARD PASTE 113GM TUBE (FROM STOREROOM PRODUCT) TOP SCH ×3 (09:32→21:23)
--- NOTE | 2020-09-22 12:21 | IPNPDOC ---
Date Seen The patient was seen on 09/22/20. Progress Note SUBJECTIVE: 80 yo F with a hx of DM2, HLD, hypomagnesemia, HTN, urinary incontinence/spamss, memory loss/worsening forgetfulness, presented to [facility] after a fall on ice and immediate L hip pain. Imaging confirned a L femoral neck fracture. patient underwent a L hip arthroplasty. She developed confusion post operateively in setting of UTI, which resolved after initiation of antibiotics within one day. She was transfered to ARU for ongoing rehab needs. Seen and examined at bedside. Appears slightly confused, component of impaired hearing. Denies pain, denies fevers, chills. VSS. OBJECTIVE PHYSICAL EXAMINATION: VITAL SIGNS: please see below General: frail, elderly HEENT: PERRLA, poor eyesight, poor hearing Neck: supple, normal ROM, no JVD Respiratory: lungs CTAB, no wheeze, no rales, no crackles CVS: RRR, normal S1, S2, no murmurs Abdo: soft, no masses, no hepatosplenomegaly, BS+, no rebound tenderness Extremities: no edema, pulses 2+ MSK: no joint deformities, normal ROM Neuro: no focal neuro deficits, moving all 4 extremities, CN2-12 intact. LABORATORY DATA, IMAGING STUDIES, MICROBIOLOGY: Please see below. DVT prophylaxis ordered?: on xarelto ASSESSMENT AND PLAN: 80F with PMHx including diabetes, hyperlipidemia, hypomagnesemia, hypertension, urinary incontinence/spasms?, Increased forgetfulness questionable age-related memory loss admitted for displaced left femoral neck fracture s/p L hip hemiarthroplasty. Admitted to ARU for ongoing rehab needs. PROBLEMS: #Displaced left femoral neck fracture s/p fall on ice - POD #3 left hip hemiarthroplasty - WBAT - ARU for ongoing PT needs - on dvt ppx with xarelto - c/w incentive spirometer - pain control with oxocodone - bowel regimen #UTI - received IV ceftriaxone - continue with cefdinir for ecoli UTI #confusion with delirium - baseline dementia, possible worsened with metabolic encephalopathy from UTI and surgery - as above for UTI - cont antibiotic therapy - agree with prn seroquel #Hx of smoking, asthma vs copd - singulair - duonebs #hx of electrolyte abnormalities - check K and Mg - continue with oral supplementation #HTN - BP well controlled off meds #DM type II - ISS, FSBS AC and HS - hypoglycemic precautions #Tobacco use -Nicotine patch #Urinary incontinence vs. urinary spasm? -C/w home med #DVT px -SCD, teds VS, I&O, 24H, Fishbone Vital Signs/I&O Vital Signs Date Time Temp Pulse Resp B/P (MAP) Pulse Ox O2 Delivery O2 Flow Rate FiO2 09/22/20 05:17 97.8 78 18 113/76 (88) 97 Room Air I&O- Last 24 Hours up to 6 AM 09/22/20 06:00 Intake Total 220 ml Balance 220 ml Laboratory Data 24H LABS Laboratory Tests 2 09/21/20 19:42: Bedside Glucose (Misc Panel) 109 09/22/20 04:47: Bedside Glucose (Misc Panel) 85 09/22/20 06:09: Immature Granulocyte % (Auto) 0.3, Neutrophils (%) (Auto) 71.4H, Lymphocytes (%) (Auto) 17.6L, Monocytes (%) (Auto) 10.4H, Eosinophils (%) (Auto) 0.0, Basophils (%) (Auto) 0.3, Neutrophils # (Auto) 4.6, Lymphocytes # (Auto) 1.1L, Monocytes # (Auto) 0.7, Eosinophils # (Auto) 0.0, Basophils # (Auto) 0.0, Nucleated Red Blood Cells % (auto) 0.0, Anion Gap 6L, Glomerular Filtration Rate > 60.0, Calcium Level 8.8, Total Bilirubin 0.7, Aspartate Amino Transf (AST/SGOT) 22, Alanine Aminotransferase (ALT/SGPT) 11L, Alkaline Phosphatase 64, Total Protein 5.6L, Albumin 2.6L, Albumin/Globulin Ratio 0.9L 09/22/20 11:32: Bedside Glucose (Misc Panel) 135H CBC/BMP Laboratory Tests 09/22/20 06:09 PERLA ECHEVERRIA MD Sep 22, 2020 12:21
[2020-09-22 14:00] VITALS: BP 122/68
[2020-09-22] MEDS: oxyCODONE 5MG TAB PO PRN ×2 (14:22→19:25)
[2020-09-22] MEDS: QUEtiapine FUMARATE 12.5 MG HALF-TAB PO PRN (17:41)
[2020-09-22] MEDS: RIVAROXABAN 10 MG TAB (XARELTO) PO SCH (17:41)
[2020-09-22 20:30] VITALS: BP 138/83
[2020-09-22] MEDS: MAGNESIUM OXIDE 400MG TAB (MAG-OX) PO SCH (21:21)
[2020-09-22] MEDS: MONTELUKAST 10 MG TAB PO SCH (21:21)
[2020-09-22] MEDS: SENNA 8.6 MG TAB (SENOKOT) PO SCH (21:21)
[2020-09-23 06:03] VITALS: BP 125/73
[2020-09-23] MEDS: IPRATROPIUM 0.5MG/ALBUTEROL 2.5MG INH SOL UD 3ML (DUONEB) NEB SCH ×3 (07:34→19:59)
[2020-09-23] MEDS: FERROUS GLUCONATE 324 MG TAB PO SCH (09:15)
[2020-09-23] MEDS: DOCUSATE SODIUM 100MG CAPSULE PO SCH ×2 (09:15→21:15)
[2020-09-23] MEDS: LACTOBACILLUS ACIDOPHILUS CAP (BACID) PO SCH ×4 (09:15→21:15)
[2020-09-23] MEDS: VITAMIN D 1,000 INTERNATIONAL UNITS TABLET PO SCH (09:15)
[2020-09-23] MEDS: HumaLOG INSULIN (NovoLOG) PER UNIT SC SCH ×4 (09:15→21:00)
[2020-09-23] MEDS: CEFDINIR 300 MG CAP (OMNICEF) PO SCH ×2 (09:15→21:15)
[2020-09-23] MEDS: FOLIC ACID 1 MG TAB PO SCH (09:16)
[2020-09-23] MEDS: POTASSIUM CHLORIDE 10 MEQ SR TABLET PO SCH (09:16)
[2020-09-23] MEDS: ACETAMINOPHEN 500 MG TAB PO SCH ×3 (09:16→21:14)
[2020-09-23] MEDS: REMEDY PHYTOPLEX Z-GUARD PASTE 113GM TUBE (FROM STOREROOM PRODUCT) TOP SCH ×3 (09:16→21:15)
[2020-09-23] MEDS: PANTOPRAZOLE 40MG TAB (PROTONIX) PO SCH (09:16)
[2020-09-23 14:00] VITALS: BP 133/91
[2020-09-23] MEDS: oxyCODONE 5MG TAB PO PRN (16:12)
[2020-09-23] MEDS: RIVAROXABAN 10 MG TAB (XARELTO) PO SCH (18:01)
[2020-09-23 20:00] VITALS: BP 138/73
[2020-09-23] MEDS: MAGNESIUM OXIDE 400MG TAB (MAG-OX) PO SCH (21:14)
[2020-09-23] MEDS: SENNA 8.6 MG TAB (SENOKOT) PO SCH (21:15)
[2020-09-23] MEDS: MONTELUKAST 10 MG TAB PO SCH (21:15)
[2020-09-24 06:04] VITALS: BP 158/89
[2020-09-24] MEDS: IPRATROPIUM 0.5MG/ALBUTEROL 2.5MG INH SOL UD 3ML (DUONEB) NEB SCH ×3 (07:28→18:11)
[2020-09-24] MEDS: VITAMIN D 1,000 INTERNATIONAL UNITS TABLET PO SCH (08:43)
[2020-09-24] MEDS: HumaLOG INSULIN (NovoLOG) PER UNIT SC SCH ×4 (08:43→21:00)
[2020-09-24] MEDS: CEFDINIR 300 MG CAP (OMNICEF) PO SCH ×2 (08:43→21:30)
[2020-09-24] MEDS: FERROUS GLUCONATE 324 MG TAB PO SCH (08:43)
[2020-09-24] MEDS: DOCUSATE SODIUM 100MG CAPSULE PO SCH ×2 (08:43→21:34)
[2020-09-24] MEDS: oxyCODONE 5MG TAB PO PRN (08:44)
[2020-09-24] MEDS: LACTOBACILLUS ACIDOPHILUS CAP (BACID) PO SCH ×4 (08:44→21:30)
[2020-09-24] MEDS: ACETAMINOPHEN 500 MG TAB PO SCH ×3 (08:44→21:30)
[2020-09-24] MEDS: POTASSIUM CHLORIDE 10 MEQ SR TABLET PO SCH (08:44)
[2020-09-24] MEDS: FOLIC ACID 1 MG TAB PO SCH (08:44)
[2020-09-24] MEDS: PANTOPRAZOLE 40MG TAB (PROTONIX) PO SCH (08:45)
[2020-09-24] MEDS: REMEDY PHYTOPLEX Z-GUARD PASTE 113GM TUBE (FROM STOREROOM PRODUCT) TOP SCH ×3 (08:45→21:31)
[2020-09-24 14:00] VITALS: BP 160/90
[2020-09-24] MEDS: RIVAROXABAN 10 MG TAB (XARELTO) PO SCH (17:09)
[2020-09-24 21:00] VITALS: BP 168/82
[2020-09-24] MEDS: MONTELUKAST 10 MG TAB PO SCH (21:28)
[2020-09-24] MEDS: SENNA 8.6 MG TAB (SENOKOT) PO SCH (21:28)
[2020-09-24] MEDS: MAGNESIUM OXIDE 400MG TAB (MAG-OX) PO SCH (21:29)
[2020-09-25 06:09] VITALS: BP 160/90
[2020-09-25] MEDS: HumaLOG INSULIN (NovoLOG) PER UNIT SC SCH ×4 (07:24→20:35)
[2020-09-25 07:56] LABS: BASO % 0.6 % (0.0-1.0); HEMATOCRIT 30.7 % (36.0-47.0); HEMOGLOBIN 9.8 g/dl (12.0-15.5); LYMPH # 0.9 10^3/uL (1.5-5.0); LYMPH % 18.4 % (24.0-44.0); MEAN CORPUSCULAR HEMOGLOBIN 28.7 pg (27.0-33.0); MEAN CORPUSCULAR HGB CONC 31.9 g/dl (32.0-36.5); MONO # 0.6 10^3/uL (0.0-0.8); MONO % 12.5 % (0.0-5.0); NEUTROPHILS # 3.2 10^3/uL (1.5-8.5); NEUTROPHILS % 68.1 % (36.0-66.0); PLATELET COUNT, AUTOMATED 256 10^3/uL (150-450); RED BLOOD COUNT 3.41 10^6/uL (4.00-5.40); WHITE BLOOD COUNT 4.7 10^3/uL (4.0-10.0)
[2020-09-25] MEDS: IPRATROPIUM 0.5MG/ALBUTEROL 2.5MG INH SOL UD 3ML (DUONEB) NEB SCH ×3 (08:00→20:00)
[2020-09-25 08:12] LABS: BLOOD UREA NITROGEN 13 MG/DL (7-18); CALCIUM LEVEL 9.1 MG/DL (8.8-10.2); CARBON DIOXIDE LEVEL 30 MEQ/L (21-32); CHLORIDE LEVEL 105 MEQ/L (98-107); GLOMERULAR FILTRATION RATE > 60.0 (>39); GLUCOSE, FASTING 103 MG/DL (70-100); POTASSIUM SERUM 4.5 MEQ/L (3.5-5.1); SODIUM LEVEL 141 MEQ/L (136-145)
[2020-09-25] MEDS: LACTOBACILLUS ACIDOPHILUS CAP (BACID) PO SCH ×4 (08:12→20:35)
[2020-09-25] MEDS: FOLIC ACID 1 MG TAB PO SCH (08:12)
[2020-09-25] MEDS: FERROUS GLUCONATE 324 MG TAB PO SCH (08:12)
[2020-09-25] MEDS: CEFDINIR 300 MG CAP (OMNICEF) PO SCH ×2 (08:12→20:34)
[2020-09-25] MEDS: VITAMIN D 1,000 INTERNATIONAL UNITS TABLET PO SCH (08:12)
[2020-09-25] MEDS: PANTOPRAZOLE 40MG TAB (PROTONIX) PO SCH (08:12)
[2020-09-25] MEDS: POTASSIUM CHLORIDE 10 MEQ SR TABLET PO SCH (08:12)
[2020-09-25] MEDS: DOCUSATE SODIUM 100MG CAPSULE PO SCH ×2 (08:13→20:34)
[2020-09-25] MEDS: ACETAMINOPHEN 500 MG TAB PO SCH ×3 (08:14→20:40)
[2020-09-25] MEDS: REMEDY PHYTOPLEX Z-GUARD PASTE 113GM TUBE (FROM STOREROOM PRODUCT) TOP SCH ×3 (08:15→20:36)
[2020-09-25 10:44] VITALS: BP 148/94
[2020-09-25] MEDS: hydroCHLOROthiazide 12.5 MG CAPSULE PO SCH (12:00)
[2020-09-25 14:00] VITALS: BP 136/83
[2020-09-25] MEDS: RIVAROXABAN 10 MG TAB (XARELTO) PO SCH (17:14)
[2020-09-25 20:00] VITALS: BP 142/80
[2020-09-25] MEDS: SENNA 8.6 MG TAB (SENOKOT) PO SCH (20:34)
[2020-09-25] MEDS: MONTELUKAST 10 MG TAB PO SCH (20:34)
[2020-09-25] MEDS: MAGNESIUM OXIDE 400MG TAB (MAG-OX) PO SCH (20:34)
[2020-09-25] MEDS: oxyCODONE 5MG TAB PO PRN (20:35)
[2020-09-26 05:19] VITALS: BP 164/90
[2020-09-26] MEDS: HumaLOG INSULIN (NovoLOG) PER UNIT SC SCH ×4 (07:30→21:00)
[2020-09-26] MEDS: IPRATROPIUM 0.5MG/ALBUTEROL 2.5MG INH SOL UD 3ML (DUONEB) NEB SCH ×3 (08:00→20:10)
[2020-09-26] MEDS ORDERED: hydroCHLOROthiazide 12.5 MG CAPSULE PO SCH (09:00)
[2020-09-26] MEDS: REMEDY PHYTOPLEX Z-GUARD PASTE 113GM TUBE (FROM STOREROOM PRODUCT) TOP SCH ×3 (09:00→21:33)
[2020-09-26] MEDS: CEFDINIR 300 MG CAP (OMNICEF) PO SCH ×2 (09:14→21:31)
[2020-09-26] MEDS: hydroCHLOROthiazide 12.5 MG CAPSULE PO SCH (09:16)
[2020-09-26] MEDS: POTASSIUM CHLORIDE 10 MEQ SR TABLET PO SCH (09:17)
[2020-09-26] MEDS: VITAMIN D 1,000 INTERNATIONAL UNITS TABLET PO SCH (09:17)
[2020-09-26] MEDS: LACTOBACILLUS ACIDOPHILUS CAP (BACID) PO SCH ×4 (09:17→21:31)
[2020-09-26] MEDS: ACETAMINOPHEN 500 MG TAB PO SCH ×3 (09:17→21:32)
[2020-09-26] MEDS: FERROUS GLUCONATE 324 MG TAB PO SCH (09:17)
[2020-09-26] MEDS: DOCUSATE SODIUM 100MG CAPSULE PO SCH ×2 (09:17→21:31)
[2020-09-26] MEDS: FOLIC ACID 1 MG TAB PO SCH (09:17)
[2020-09-26] MEDS: PANTOPRAZOLE 40MG TAB (PROTONIX) PO SCH (09:17)
--- NOTE | 2020-09-26 09:31 | IPNPDOC ---
PM&R Progress Note DATE OF SERVICE: Sep 26, 2020 Forensic Pathologist Progress Note Subjective: Patient reporting she feels well and is wondering if she can go home sooner, stating her sons can help her. REVIEW OF SYSTEMS: The following is a completed review of systems and has been reviewed. Review of systems otherwise unremarkable. PAIN: Patient self reports neck stiffness and left hip pain EYES: +low vision EARS, NOSE, & THROAT: +[place] CARDIOVASCULAR: Denies chest pain or palpitations PULMONARY: Denies shortness of breath. GASTROINTESTINAL: Denies constipation/diarrhea GENITOURINARY:+incontinence MUSCULOSKELETAL: left hip fracture NEUROLOGICAL: no tremor or paresis HEMATOLOGICAL: no easy bruising SKIN: left hip incision PSYCHIATRIC: Unremarkable All other review of systems found to be negative. PHYSICAL EXAMINATION: VITAL SIGNS: Please see below. GENERAL: Pleasant and cooperative. No acute distress. HEENT: PERRL. Extraocular movements intact. Clear conjunctiva CARDIOVASCULAR: Regular rate and rhythm. No murmurs, rubs, or gallops LUNGS: Clear to auscultation bilaterally. No wheezes. No rhonchi ABDOMEN: Soft, nontender, nondistended. Positive bowel sounds. Normal active bowel sounds NEUROLOGICAL: difficult to assess orientation as patient very [place]. Cranial nerves II through XII grossly intact. Sensation grossly intact EXTREMITIES: 5\5 strength bilateral upper extremities. >\5 strength right lower extremity. right LE 5/5, Left LE 5/5 ankle DF/EHL/PF (limited due to recent surgery SKIN: left hip dermabond, no induration ASSESSMENT:80-year-old F with past medical history of who presents status post left hip fracture PLAN: 1. Rehab- PT/OT advancce mobility and ADLs, strengthen/stretch/maintain ROM all 4l limbs, ambulating with RW 2. ortho- s/p left hip fracture and hemiarthroplasty- WBAT 3. cardiac- hx of htn, monitor off BP meds for now, medicine consulted to assist in overall management 4. Resp- Hx of smoking, c/u monteleukast and DUonebs, monitor for infection 5. Hypomagenesemia- c/u oral supplement and oral potassium 6. - c/u cefdinir for e coli UTI 7. psych- seroquel prn for episodes of delirium 8. Pain- tylenol and oxycodone 9. DVT ppx- xarelto 10. GI ppx- protonix 11. Endo- hx of DM c/u ISS and consistent carb diet 12. Dspo- 10-03-20 to home, progressing towards goals Allergies Coded Allergies: No Known Allergies (Unverified , 09/18/20) Vital Signs Vital Signs Date Time Temp Pulse Resp B/P (MAP) Pulse Ox O2 Delivery O2 Flow Rate FiO2 09/26/20 05:19 97.5 62 18 164/90 (114) 98 Room Air Laboratory Data Labs 24H Laboratory Tests 2 09/25/20 11:33: Bedside Glucose (Misc Panel) 116H 09/25/20 16:39: Bedside Glucose (Misc Panel) 96 09/25/20 19:49: Bedside Glucose (Misc Panel) 116H 09/26/20 04:53: Bedside Glucose (Misc Panel) 88 Current Medications Current Medications Current Medications Medications (Trade) Dose Ordered Sig/Nahid Route PRN Reason Start Time Stop Time Status Last Admin Dose Admin Acetaminophen (Tylenol Tab) 1,000 mg TID PO 09/21/20 21:00 09/26/20 09:17 Albuterol/ Ipratropium (Duoneb (Ipr 0.5mg/Alb 2.5mg)) 3 ml RTID NEB 09/21/20 20:00 09/24/20 18:11 Bisacodyl (Dulcolax Suppository) 10 mg DAILYPRN PRN [place] CONSTIPATION 09/21/20 18:15 Cefdinir (Omnicef) 300 mg BID PO 09/21/20 21:00 09/28/20 09:01 09/26/20 09:14 Dextrose (Dextrose 50%) 25 ml ASDIRECTED PRN IV SEE LABEL COMMENTS 09/21/20 18:15 Docusate Sodium (Colace) 100 mg BID PO 09/21/20 21:00 09/26/20 09:17 Ferrous Gluconate (Fergon) 324 mg DAILY PO 09/22/20 09:00 09/26/20 09:17 Folic Acid (Folic Acid) 1 mg DAILY PO 09/22/20 09:00 09/26/20 09:17 Glucagon (Glucagon) 1 mg ASDIRECTED PRN SC SEE LABEL COMMENTS 09/21/20 18:15 Glucose (Glucose) 16 GM ASDIRECTED PRN PO SEE LABEL COMMENTS 09/21/20 18:15 Hydrochlorothiazide (Hydrodiuril) 12.5 mg DAILY PO 09/25/20 09:00 09/26/20 09:16 Hydrochlorothiazide (Hydrodiuril) 12.5 mg DAILY PO 09/26/20 09:00 09/25/20 11:51 DC Insulin Human Lispro (HumaLOG INSULIN) SEE PROTOCOL TABLE AC SC 09/22/20 07:30 09/25/20 12:01 Insulin Human Lispro (HumaLOG INSULIN) SEE PROTOCOL TABLE QHS SC 09/21/20 21:00 Lactobacillus Acidophilus (Bacid) 1 ea WMHS PO 09/21/20 21:00 09/26/20 09:17 Magnesium Oxide (Mag-Ox) 200 mg QHS PO 09/21/20 21:00 09/25/20 20:34 Montelukast Sodium (Singulair) 10 mg QHS PO 09/21/20 21:00 09/25/20 20:34 Oxycodone HCl (Roxicodone, Oxyir) 5 mg Q4HP PRN PO PAIN 09/21/20 18:15 09/25/20 20:35 Pantoprazole Sodium (Protonix) 40 mg DAILY PO 09/22/20 09:00 09/26/20 09:17 Potassium Chloride (Micro-K Extencaps) 10 meq DAILY PO 09/22/20 09:00 09/26/20 09:17 Quetiapine Fumarate (SEROquel) 12.5 mg BID PRN PO agitation 09/21/20 18:15 09/22/20 17:41 Rivaroxaban (Xarelto) 10 mg DAILY@1800 PO 09/21/20 18:15 09/25/20 17:14 Senna (Senokot) 1 tab QHS PO 09/21/20 21:00 09/25/20 20:34 Vitamin D (Vitamin D) 1,000 units DAILY PO 09/22/20 09:00 09/26/20 09:17 PINO GUERIN MD Sep 26, 2020 09:31
[2020-09-26] MEDS: amLODIPine 5 MG TAB PO SCH (12:29)
[2020-09-26 14:00] VITALS: BP 118/82
[2020-09-26] MEDS: RIVAROXABAN 10 MG TAB (XARELTO) PO SCH (17:30)
[2020-09-26 20:00] VITALS: BP 124/76
[2020-09-26] MEDS: MAGNESIUM OXIDE 400MG TAB (MAG-OX) PO SCH (21:31)
[2020-09-26] MEDS: MONTELUKAST 10 MG TAB PO SCH (21:31)
[2020-09-26] MEDS: SENNA 8.6 MG TAB (SENOKOT) PO SCH (21:31)
[2020-09-26] MEDS: oxyCODONE 5MG TAB PO PRN (21:32)
[2020-09-27 05:25] VITALS: BP 161/88
[2020-09-27] MEDS: HumaLOG INSULIN (NovoLOG) PER UNIT SC SCH ×4 (07:28→21:00)
[2020-09-27] MEDS: IPRATROPIUM 0.5MG/ALBUTEROL 2.5MG INH SOL UD 3ML (DUONEB) NEB SCH ×3 (07:59→19:43)
[2020-09-27] MEDS: DOCUSATE SODIUM 100MG CAPSULE PO SCH ×2 (09:00→21:02)
[2020-09-27] MEDS: REMEDY PHYTOPLEX Z-GUARD PASTE 113GM TUBE (FROM STOREROOM PRODUCT) TOP SCH ×3 (09:00→21:05)
[2020-09-27] MEDS: LACTOBACILLUS ACIDOPHILUS CAP (BACID) PO SCH ×4 (09:19→21:03)
[2020-09-27] MEDS: CEFDINIR 300 MG CAP (OMNICEF) PO SCH ×2 (09:19→21:02)
[2020-09-27] MEDS: hydroCHLOROthiazide 12.5 MG CAPSULE PO SCH (09:20)
[2020-09-27] MEDS: FERROUS GLUCONATE 324 MG TAB PO SCH (09:20)
[2020-09-27] MEDS: amLODIPine 5 MG TAB PO SCH (09:20)
[2020-09-27] MEDS: POTASSIUM CHLORIDE 10 MEQ SR TABLET PO SCH (09:20)
[2020-09-27] MEDS: PANTOPRAZOLE 40MG TAB (PROTONIX) PO SCH (09:21)
[2020-09-27] MEDS: FOLIC ACID 1 MG TAB PO SCH (09:21)
[2020-09-27] MEDS: ACETAMINOPHEN 500 MG TAB PO SCH ×3 (09:21→21:04)
[2020-09-27] MEDS: VITAMIN D 1,000 INTERNATIONAL UNITS TABLET PO SCH (09:21)
[2020-09-27] MEDS: HYDROCORTISONE 1% CREAM 30 GM TOP SCH (09:22)
--- NOTE | 2020-09-27 11:45 | IPNPDOC ---
PM&R Progress Note DATE OF SERVICE: Sep 27, 2020 Community Education Coordinator Progress Note Subjective: Patient stating she feels sore all over and is open to trying gabapentin to help with her pain. REVIEW OF SYSTEMS: The following is a completed review of systems and has been reviewed. Review of systems otherwise unremarkable. PAIN: Patient self reports neck stiffness and left hip pain EYES: +low vision EARS, NOSE, & THROAT: +[place] CARDIOVASCULAR: Denies chest pain or palpitations PULMONARY: Denies shortness of breath. GASTROINTESTINAL: Denies constipation/diarrhea GENITOURINARY:+incontinence MUSCULOSKELETAL: left hip fracture NEUROLOGICAL: no tremor or paresis HEMATOLOGICAL: no easy bruising SKIN: left hip incision PSYCHIATRIC: Unremarkable All other review of systems found to be negative. PHYSICAL EXAMINATION: VITAL SIGNS: Please see below. GENERAL: Pleasant and cooperative. No acute distress. HEENT: PERRL. Extraocular movements intact. Clear conjunctiva CARDIOVASCULAR: Regular rate and rhythm. No murmurs, rubs, or gallops LUNGS: Clear to auscultation bilaterally. No wheezes. No rhonchi ABDOMEN: Soft, nontender, nondistended. Positive bowel sounds. Normal active bowel sounds NEUROLOGICAL: difficult to assess orientation as patient very [place]. Cranial nerves II through XII grossly intact. Sensation grossly intact EXTREMITIES: 5\5 strength bilateral upper extremities. >\5 strength right lower extremity. right LE 5/5, Left LE 5/5 ankle DF/EHL/PF (limited due to recent surgery SKIN: left hip dermabond, no induration ASSESSMENT:80-year-old F with past medical history of who presents status post left hip fracture PLAN: 1. Rehab- PT/OT advancce mobility and ADLs, strengthen/stretch/maintain ROM all 4l limbs, ambulating with RW 2. ortho- s/p left hip fracture and hemiarthroplasty- WBAT 3. cardiac- hx of htn, monitor off BP meds for now, medicine consulted to assist in overall management 4. Resp- Hx of smoking, c/u monteleukast and DUonebs, monitor for infection 5. Hypomagenesemia- c/u oral supplement and oral potassium 6. - c/u cefdinir for e coli UTI 7. psych- seroquel prn for episodes of delirium 8. Pain- tylenol and oxycodone, will add gabapentin 100mg TID 9. DVT ppx- xarelto 10. GI ppx- protonix 11. Endo- hx of DM c/u ISS and consistent carb diet 12. Dspo- 10-03-20 to home, progressing towards goals Allergies Coded Allergies: No Known Allergies (Unverified , 09/18/20) Vital Signs Vital Signs Date Time Temp Pulse Resp B/P (MAP) Pulse Ox O2 Delivery O2 Flow Rate FiO2 09/27/20 09:20 70 152/88 09/27/20 05:25 98.3 19 100 Room Air Laboratory Data Labs 24H Laboratory Tests 2 09/26/20 12:04: Bedside Glucose (Misc Panel) 87 09/26/20 16:28: Bedside Glucose (Misc Panel) 99 09/26/20 19:46: Bedside Glucose (Misc Panel) 123H 09/27/20 04:58: Bedside Glucose (Misc Panel) 94 09/27/20 11:28: Bedside Glucose (Misc Panel) 109 Current Medications Current Medications Current Medications Medications (Trade) Dose Ordered Sig/Nahid Route PRN Reason Start Time Stop Time Status Last Admin Dose Admin Acetaminophen (Tylenol Tab) 1,000 mg TID PO 09/21/20 21:00 09/27/20 09:21 Albuterol/ Ipratropium (Duoneb (Ipr 0.5mg/Alb 2.5mg)) 3 ml RTID NEB 09/21/20 20:00 09/27/20 07:59 Amlodipine Besylate (Norvasc) 5 mg DAILY PO 09/26/20 09:00 09/27/20 09:20 Bisacodyl (Dulcolax Suppository) 10 mg DAILYPRN PRN [place] CONSTIPATION 09/21/20 18:15 Cefdinir (Omnicef) 300 mg BID PO 09/21/20 21:00 09/28/20 09:01 09/27/20 09:19 Dextrose (Dextrose 50%) 25 ml ASDIRECTED PRN IV SEE LABEL COMMENTS 09/21/20 18:15 Docusate Sodium (Colace) 100 mg BID PO 09/21/20 21:00 09/26/20 21:31 Ferrous Gluconate (Fergon) 324 mg DAILY PO 09/22/20 09:00 09/27/20 09:20 Folic Acid (Folic Acid) 1 mg DAILY PO 09/22/20 09:00 09/27/20 09:21 Glucagon (Glucagon) 1 mg ASDIRECTED PRN SC SEE LABEL COMMENTS 09/21/20 18:15 Glucose (Glucose) 16 GM ASDIRECTED PRN PO SEE LABEL COMMENTS 09/21/20 18:15 Hydrochlorothiazide (Hydrodiuril) 12.5 mg DAILY PO 09/25/20 09:00 09/27/20 09:20 Hydrochlorothiazide (Hydrodiuril) 12.5 mg DAILY PO 09/26/20 09:00 09/25/20 11:51 DC Hydrocortisone (Hydrocortisone 1% Cream) apply to itchy rash on back TIDP TOP 09/26/20 10:15 09/27/20 09:22 Insulin Human Lispro (HumaLOG INSULIN) SEE PROTOCOL TABLE AC SC 09/22/20 07:30 09/25/20 12:01 Insulin Human Lispro (HumaLOG INSULIN) SEE PROTOCOL TABLE QHS SC 09/21/20 21:00 Lactobacillus Acidophilus (Bacid) 1 ea WMHS PO 09/21/20 21:00 09/27/20 09:19 Magnesium Oxide (Mag-Ox) 200 mg QHS PO 09/21/20 21:00 09/26/20 21:31 Montelukast Sodium (Singulair) 10 mg QHS PO 09/21/20 21:00 09/26/20 21:31 Oxycodone HCl (Roxicodone, Oxyir) 5 mg Q4HP PRN PO PAIN 09/21/20 18:15 09/26/20 21:32 Pantoprazole Sodium (Protonix) 40 mg DAILY PO 09/22/20 09:00 09/27/20 09:21 Potassium Chloride (Micro-K Extencaps) 10 meq DAILY PO 09/22/20 09:00 09/27/20 09:20 Quetiapine Fumarate (SEROquel) 12.5 mg BID PRN PO agitation 09/21/20 18:15 09/22/20 17:41 Rivaroxaban (Xarelto) 10 mg DAILY@1800 PO 09/21/20 18:15 09/26/20 17:30 Senna (Senokot) 1 tab QHS PO 09/21/20 21:00 09/26/20 21:31 Vitamin D (Vitamin D) 1,000 units DAILY PO 09/22/20 09:00 09/27/20 09:21 PINO GUERIN MD Sep 27, 2020 11:45
[2020-09-27 12:18] LABS: BASO % 0.4 % (0.0-1.0); HEMATOCRIT 30.9 % (36.0-47.0); HEMOGLOBIN 9.7 g/dl (12.0-15.5); LYMPH # 1.3 10^3/uL (1.5-5.0); LYMPH % 16.9 % (24.0-44.0); MEAN CORPUSCULAR HEMOGLOBIN 28.5 pg (27.0-33.0); MEAN CORPUSCULAR HGB CONC 31.4 g/dl (32.0-36.5); MEAN CORPUSCULAR VOLUME 90.9 fl (80.0-96.0); MONO # 0.8 10^3/uL (0.0-0.8); MONO % 10.2 % (0.0-5.0); NEUTROPHILS # 5.4 10^3/uL (1.5-8.5); PLATELET COUNT, AUTOMATED 382 10^3/uL (150-450); WHITE BLOOD COUNT 7.6 10^3/uL (4.0-10.0)
[2020-09-27 12:48] LABS: BLOOD UREA NITROGEN 19 MG/DL (7-18); CALCIUM LEVEL 9.3 MG/DL (8.8-10.2); CARBON DIOXIDE LEVEL 29 MEQ/L (21-32); CHLORIDE LEVEL 102 MEQ/L (98-107); GLOMERULAR FILTRATION RATE > 60.0 (>39); GLUCOSE, FASTING 123 MG/DL (70-100); POTASSIUM SERUM 4.2 MEQ/L (3.5-5.1); SODIUM LEVEL 138 MEQ/L (136-145)
[2020-09-27 14:00] VITALS: BP 112/68
[2020-09-27] MEDS: GABAPENTIN 100 MG CAP PO SCH ×2 (15:36→21:02)
[2020-09-27] MEDS: RIVAROXABAN 10 MG TAB (XARELTO) PO SCH (17:43)
[2020-09-27 20:00] VITALS: BP 144/72
[2020-09-27] MEDS: MAGNESIUM OXIDE 400MG TAB (MAG-OX) PO SCH (21:03)
[2020-09-27] MEDS: SENNA 8.6 MG TAB (SENOKOT) PO SCH (21:04)
[2020-09-27] MEDS: MONTELUKAST 10 MG TAB PO SCH (21:05)
[2020-09-28 06:00] VITALS: BP 132/81
[2020-09-28] MEDS: HumaLOG INSULIN (NovoLOG) PER UNIT SC SCH ×4 (07:30→19:58)
[2020-09-28] MEDS: IPRATROPIUM 0.5MG/ALBUTEROL 2.5MG INH SOL UD 3ML (DUONEB) NEB SCH ×3 (07:42→19:54)
[2020-09-28] MEDS: LACTOBACILLUS ACIDOPHILUS CAP (BACID) PO SCH ×4 (08:00→20:28)
[2020-09-28] MEDS: GABAPENTIN 100 MG CAP PO SCH ×3 (09:38→20:27)
[2020-09-28] MEDS: VITAMIN D 1,000 INTERNATIONAL UNITS TABLET PO SCH (09:38)
[2020-09-28] MEDS: CEFDINIR 300 MG CAP (OMNICEF) PO SCH (09:38)
[2020-09-28] MEDS: DOCUSATE SODIUM 100MG CAPSULE PO SCH ×2 (09:40→20:27)
[2020-09-28] MEDS: FOLIC ACID 1 MG TAB PO SCH (09:40)
[2020-09-28] MEDS: PANTOPRAZOLE 40MG TAB (PROTONIX) PO SCH (09:40)
[2020-09-28] MEDS: hydroCHLOROthiazide 12.5 MG CAPSULE PO SCH (09:40)
[2020-09-28] MEDS: FERROUS GLUCONATE 324 MG TAB PO SCH (09:40)
[2020-09-28] MEDS: ACETAMINOPHEN 500 MG TAB PO SCH ×3 (09:40→20:28)
[2020-09-28] MEDS: amLODIPine 5 MG TAB PO SCH (09:41)
[2020-09-28] MEDS: POTASSIUM CHLORIDE 10 MEQ SR TABLET PO SCH (09:41)
[2020-09-28] MEDS: REMEDY PHYTOPLEX Z-GUARD PASTE 113GM TUBE (FROM STOREROOM PRODUCT) TOP SCH ×3 (09:45→20:30)
[2020-09-28] MEDS ORDERED: FLEET ENEMA PR ONE (12:15)
[2020-09-28] MEDS ORDERED: CALCIUM CARBONATE 500 MG CHEW U/D PO PRN (12:15)
[2020-09-28 14:00] VITALS: BP 113/80
[2020-09-28] MEDS: RIVAROXABAN 10 MG TAB (XARELTO) PO SCH (17:33)
[2020-09-28 20:00] VITALS: BP 120/72
[2020-09-28] MEDS: SENNA 8.6 MG TAB (SENOKOT) PO SCH (20:28)
[2020-09-28] MEDS: MONTELUKAST 10 MG TAB PO SCH (20:28)
[2020-09-28] MEDS: QUEtiapine FUMARATE 12.5 MG HALF-TAB PO PRN (20:28)
[2020-09-28] MEDS: MAGNESIUM OXIDE 400MG TAB (MAG-OX) PO SCH (20:29)
[2020-09-29 06:00] VITALS: BP 150/90
[2020-09-29 06:39] LABS: BASO % 0.6 % (0.0-1.0); HEMATOCRIT 28.7 % (36.0-47.0); HEMOGLOBIN 8.9 g/dl (12.0-15.5); LYMPH # 1.2 10^3/uL (1.5-5.0); LYMPH % 22.8 % (24.0-44.0); MEAN CORPUSCULAR HEMOGLOBIN 28.3 pg (27.0-33.0); MEAN CORPUSCULAR VOLUME 91.4 fl (80.0-96.0); MONO # 0.6 10^3/uL (0.0-0.8); MONO % 11.2 % (0.0-5.0); NEUTROPHILS # 3.5 10^3/uL (1.5-8.5); NEUTROPHILS % 64.5 % (36.0-66.0); PLATELET COUNT, AUTOMATED 380 10^3/uL (150-450); RED BLOOD COUNT 3.14 10^6/uL (4.00-5.40); WHITE BLOOD COUNT 5.4 10^3/uL (4.0-10.0)
[2020-09-29 07:07] LABS: BLOOD UREA NITROGEN 22 MG/DL (7-18); CALCIUM LEVEL 8.6 MG/DL (8.8-10.2); CARBON DIOXIDE LEVEL 29 MEQ/L (21-32); CHLORIDE LEVEL 106 MEQ/L (98-107); CREATININE FOR GFR 0.88 MG/DL (0.55-1.30); GLOMERULAR FILTRATION RATE > 60.0 (>39); GLUCOSE, FASTING 97 MG/DL (70-100); POTASSIUM SERUM 4.1 MEQ/L (3.5-5.1); SODIUM LEVEL 141 MEQ/L (136-145)
[2020-09-29] MEDS: HumaLOG INSULIN (NovoLOG) PER UNIT SC SCH (07:30)
[2020-09-29] MEDS: MIRALAX *UNIT DOSE* 17GM PACKET PO SCH (07:52)
[2020-09-29] MEDS: PANTOPRAZOLE 40MG TAB (PROTONIX) PO SCH (07:53)
[2020-09-29] MEDS: FERROUS GLUCONATE 324 MG TAB PO SCH (07:53)
[2020-09-29] MEDS: VITAMIN D 1,000 INTERNATIONAL UNITS TABLET PO SCH (07:53)
[2020-09-29] MEDS: DOCUSATE SODIUM 100MG CAPSULE PO SCH ×2 (07:53→20:33)
[2020-09-29] MEDS: LACTOBACILLUS ACIDOPHILUS CAP (BACID) PO SCH ×4 (07:53→20:34)
[2020-09-29] MEDS: FOLIC ACID 1 MG TAB PO SCH (07:54)
[2020-09-29] MEDS: GABAPENTIN 100 MG CAP PO SCH ×3 (07:54→20:33)
[2020-09-29] MEDS: hydroCHLOROthiazide 12.5 MG CAPSULE PO SCH (07:54)
[2020-09-29] MEDS: POTASSIUM CHLORIDE 10 MEQ SR TABLET PO SCH (07:54)
[2020-09-29] MEDS: ACETAMINOPHEN 500 MG TAB PO SCH ×3 (07:55→20:34)
[2020-09-29] MEDS: amLODIPine 5 MG TAB PO SCH (07:55)
[2020-09-29] MEDS: REMEDY PHYTOPLEX Z-GUARD PASTE 113GM TUBE (FROM STOREROOM PRODUCT) TOP SCH ×3 (07:55→20:35)
[2020-09-29] MEDS: IPRATROPIUM 0.5MG/ALBUTEROL 2.5MG INH SOL UD 3ML (DUONEB) NEB SCH ×3 (08:00→20:00)
--- NOTE | 2020-09-29 10:27 | IPNPDOC ---
PM&R Progress Note DATE OF SERVICE: Sep 29, 2020 Hand Molder Progress Note Subjective: Patient seen in room stating she is feeling ok and would like to try a suppository instead of the fleet later in the afternoon. REVIEW OF SYSTEMS: The following is a completed review of systems and has been reviewed. Review of systems otherwise unremarkable. PAIN: Patient self reports neck stiffness and left hip pain EYES: +low vision EARS, NOSE, & THROAT: +AGDAAGUX CARDIOVASCULAR: Denies chest pain or palpitations PULMONARY: Denies shortness of breath. GASTROINTESTINAL: +constipated GENITOURINARY:+incontinence MUSCULOSKELETAL: left hip fracture NEUROLOGICAL: no tremor or paresis HEMATOLOGICAL: no easy bruising SKIN: left hip incision PSYCHIATRIC: Unremarkable All other review of systems found to be negative. PHYSICAL EXAMINATION: VITAL SIGNS: Please see below. GENERAL: Pleasant and cooperative. No acute distress. HEENT: PERRL. Extraocular movements intact. Clear conjunctiva CARDIOVASCULAR: Regular rate and rhythm. No murmurs, rubs, or gallops LUNGS: Clear to auscultation bilaterally. No wheezes. No rhonchi ABDOMEN: Soft, nontender, nondistended. Positive bowel sounds. Normal active bowel sounds NEUROLOGICAL: difficult to assess orientation as patient very AGDAAGUX. Cranial nerves II through XII grossly intact. Sensation grossly intact EXTREMITIES: 5\5 strength bilateral upper extremities. >\5 strength right lower extremity. right LE 5/5, Left LE 5/5 ankle DF/EHL/PF (limited due to recent surgery SKIN: left hip dermabond, no induration ASSESSMENT:80-year-old F with past medical history of who presents status post left hip fracture PLAN: 1. Rehab- PT/OT advancce mobility and ADLs, strengthen/stretch/maintain ROM all 4l limbs, ambulating with RW 2. ortho- s/p left hip fracture and hemiarthroplasty- WBAT 3. cardiac- hx of htn, monitor off BP meds for now, medicine consulted to assist in overall management 4. Resp- Hx of smoking, c/u monteleukast and DUonebs, monitor for infection 5. Hypomagenesemia- c/u oral supplement and oral potassium 6. - s/p course of cefdinir for e coli UTI 7. psych- seroquel prn for episodes of delirium 8. Pain- tylenol and oxycodone, c/u gabapentin 100mg TID 9. DVT ppx- xarelto 10. GI ppx- protonix -paient declining fleet, will order suppository 11. Endo- hx of DM c/u ISS and consistent carb diet, well controlled off home metformin 12. Dispo- 10-04-20 to home, progressing towards goals Allergies Coded Allergies: No Known Allergies (Unverified , 09/18/20) Vital Signs Vital Signs Date Time Temp Pulse Resp B/P (MAP) Pulse Ox O2 Delivery O2 Flow Rate FiO2 09/29/20 07:55 71 141/84 09/29/20 06:00 99.0 18 93 Room Air Laboratory Data CBC/BMP Laboratory Tests 09/29/20 06:23 Labs 24H Laboratory Tests 2 09/28/20 12:35: Bedside Glucose (Misc Panel) 98 09/28/20 16:21: Bedside Glucose (Misc Panel) 105 09/28/20 19:55: Bedside Glucose (Misc Panel) 95 09/29/20 06:23: Immature Granulocyte % (Auto) 0.9, Neutrophils (%) (Auto) 64.5, Lymphocytes (%) (Auto) 22.8L, Monocytes (%) (Auto) 11.2H, Eosinophils (%) (Auto) 0.0, Basophils (%) (Auto) 0.6, Neutrophils # (Auto) 3.5, Lymphocytes # (Auto) 1.2L, Monocytes # (Auto) 0.6, Eosinophils # (Auto) 0.0, Basophils # (Auto) 0.0, Nucleated Red Blood Cells % (auto) 0.0, Anion Gap 6L, Glomerular Filtration Rate > 60.0, Calcium Level 8.6L 09/29/20 06:32: Bedside Glucose (Misc Panel) 77L Current Medications Current Medications Current Medications Medications (Trade) Dose Ordered Sig/Nahid Route PRN Reason Start Time Stop Time Status Last Admin Dose Admin Acetaminophen (Tylenol Tab) 1,000 mg TID PO 09/21/20 21:00 09/29/20 07:55 Albuterol/ Ipratropium (Duoneb (Ipr 0.5mg/Alb 2.5mg)) 3 ml RTID NEB 09/21/20 20:00 09/28/20 19:54 Amlodipine Besylate (Norvasc) 5 mg DAILY PO 09/26/20 09:00 09/29/20 07:55 Bisacodyl (Dulcolax Suppository) 10 mg DAILYPRN PRN [place] CONSTIPATION 09/21/20 18:15 Calcium Carbonate (Tums) 500 mg BID PRN PO INDIGESTION 09/28/20 12:15 Cefdinir (Omnicef) 300 mg BID PO 09/21/20 21:00 09/28/20 09:01 DC 09/28/20 09:38 Dextrose (Dextrose 50%) 25 ml ASDIRECTED PRN IV SEE LABEL COMMENTS 09/21/20 18:15 Docusate Sodium (Colace) 100 mg BID PO 09/21/20 21:00 09/29/20 07:53 Ferrous Gluconate (Fergon) 324 mg DAILY PO 09/22/20 09:00 09/29/20 07:53 Folic Acid (Folic Acid) 1 mg DAILY PO 09/22/20 09:00 09/29/20 07:54 Gabapentin (Neurontin) 100 mg TID PO 09/27/20 16:00 09/29/20 07:54 Glucagon (Glucagon) 1 mg ASDIRECTED PRN SC SEE LABEL COMMENTS 09/21/20 18:15 Glucose (Glucose) 16 GM ASDIRECTED PRN PO SEE LABEL COMMENTS 09/21/20 18:15 Hydrochlorothiazide (Hydrodiuril) 12.5 mg DAILY PO 09/25/20 09:00 09/29/20 07:54 Hydrochlorothiazide (Hydrodiuril) 12.5 mg DAILY PO 09/26/20 09:00 09/25/20 11:51 DC Hydrocortisone (Hydrocortisone 1% Cream) apply to itchy rash on back TIDP TOP 09/26/20 10:15 09/27/20 09:22 Insulin Human Lispro (HumaLOG INSULIN) SEE PROTOCOL TABLE AC SC 09/22/20 07:30 09/27/20 12:02 Insulin Human Lispro (HumaLOG INSULIN) SEE PROTOCOL TABLE QHS SC 09/21/20 21:00 Lactobacillus Acidophilus (Bacid) 1 ea WMHS PO 09/21/20 21:00 09/29/20 07:53 Magnesium Oxide (Mag-Ox) 200 mg QHS PO 09/21/20 21:00 09/28/20 20:29 Montelukast Sodium (Singulair) 10 mg QHS PO 09/21/20 21:00 09/28/20 20:28 Oxycodone HCl (Roxicodone, Oxyir) 5 mg Q4HP PRN PO PAIN 09/21/20 18:15 09/26/20 21:32 Pantoprazole Sodium (Protonix) 40 mg DAILY PO 09/22/20 09:00 09/29/20 07:53 Polyethylene Glycol (Miralax) 1 pkt DAILY PO 09/29/20 09:00 09/29/20 07:52 Potassium Chloride (Micro-K Extencaps) 10 meq DAILY PO 09/22/20 09:00 09/29/20 07:54 Quetiapine Fumarate (SEROquel) 12.5 mg BID PRN PO agitation 09/21/20 18:15 09/28/20 20:28 Rivaroxaban (Xarelto) 10 mg DAILY@1800 PO 09/21/20 18:15 09/28/20 17:33 Senna (Senokot) 1 tab QHS PO 09/21/20 21:00 09/28/20 20:28 Vitamin D (Vitamin D) 1,000 units DAILY PO 09/22/20 09:00 09/29/20 07:53 PINO GUERIN MD Sep 29, 2020 10:27
--- NOTE | 2020-09-29 10:27 | IPNPDOC ---
PM&R Progress Note DATE OF SERVICE: Sep 28, 2020 Reprint Sorter Progress Note Subjective: Patient seen in room with her son, concerned that she felt constipated and gassy. REVIEW OF SYSTEMS: The following is a completed review of systems and has been reviewed. Review of systems otherwise unremarkable. PAIN: Patient self reports neck stiffness and left hip pain EYES: +low vision EARS, NOSE, & THROAT: +[place]OO[place] CARDIOVASCULAR: Denies chest pain or palpitations PULMONARY: Denies shortness of breath. GASTROINTESTINAL: +constipated GENITOURINARY:+incontinence MUSCULOSKELETAL: left hip fracture NEUROLOGICAL: no tremor or paresis HEMATOLOGICAL: no easy bruising SKIN: left hip incision PSYCHIATRIC: Unremarkable All other review of systems found to be negative. PHYSICAL EXAMINATION: VITAL SIGNS: Please see below. GENERAL: Pleasant and cooperative. No acute distress. HEENT: PERRL. Extraocular movements intact. Clear conjunctiva CARDIOVASCULAR: Regular rate and rhythm. No murmurs, rubs, or gallops LUNGS: Clear to auscultation bilaterally. No wheezes. No rhonchi ABDOMEN: Soft, nontender, nondistended. Positive bowel sounds. Normal active bowel sounds NEUROLOGICAL: difficult to assess orientation as patient very [place]. Cranial nerves II through XII grossly intact. Sensation grossly intact EXTREMITIES: 5\5 strength bilateral upper extremities. >\5 strength right lower extremity. right LE 5/5, Left LE 5/5 ankle DF/EHL/PF (limited due to recent surgery SKIN: left hip dermabond, no induration ASSESSMENT:80-year-old F with past medical history of who presents status post left hip fracture PLAN: 1. Rehab- PT/OT advancce mobility and ADLs, strengthen/stretch/maintain ROM all 4l limbs, ambulating with RW 2. ortho- s/p left hip fracture and hemiarthroplasty- WBAT 3. cardiac- hx of htn, monitor off BP meds for now, medicine consulted to assist in overall management 4. Resp- Hx of smoking, c/u monteleukast and DUonebs, monitor for infection 5. Hypomagenesemia- c/u oral supplement and oral potassium 6. - s/p course of cefdinir for e coli UTI 7. psych- seroquel prn for episodes of delirium 8. Pain- tylenol and oxycodone, c/u gabapentin 100mg TID 9. DVT ppx- xarelto 10. GI ppx- protonix -will order fleet enema 11. Endo- hx of DM c/u ISS and consistent carb diet, well controlled off home metformin 12. Dispo- 10-04-20 to home, progressing towards goals Allergies Coded Allergies: No Known Allergies (Unverified , 09/18/20) Vital Signs Vital Signs Date Time Temp Pulse Resp B/P (MAP) Pulse Ox O2 Delivery O2 Flow Rate FiO2 09/29/20 07:55 71 141/84 09/29/20 06:00 99.0 18 93 Room Air Laboratory Data CBC/BMP Laboratory Tests 09/29/20 06:23 Labs 24H Laboratory Tests 2 09/28/20 12:35: Bedside Glucose (Misc Panel) 98 09/28/20 16:21: Bedside Glucose (Misc Panel) 105 09/28/20 19:55: Bedside Glucose (Misc Panel) 95 09/29/20 06:23: Immature Granulocyte % (Auto) 0.9, Neutrophils (%) (Auto) 64.5, Lymphocytes (%) (Auto) 22.8L, Monocytes (%) (Auto) 11.2H, Eosinophils (%) (Auto) 0.0, Basophils (%) (Auto) 0.6, Neutrophils # (Auto) 3.5, Lymphocytes # (Auto) 1.2L, Monocytes # (Auto) 0.6, Eosinophils # (Auto) 0.0, Basophils # (Auto) 0.0, Nucleated Red Blood Cells % (auto) 0.0, Anion Gap 6L, Glomerular Filtration Rate > 60.0, Calcium Level 8.6L 09/29/20 06:32: Bedside Glucose (Misc Panel) 77L Current Medications Current Medications Current Medications Medications (Trade) Dose Ordered Sig/Nahid Route PRN Reason Start Time Stop Time Status Last Admin Dose Admin Acetaminophen (Tylenol Tab) 1,000 mg TID PO 09/21/20 21:00 09/29/20 07:55 Albuterol/ Ipratropium (Duoneb (Ipr 0.5mg/Alb 2.5mg)) 3 ml RTID NEB 09/21/20 20:00 09/28/20 19:54 Amlodipine Besylate (Norvasc) 5 mg DAILY PO 09/26/20 09:00 09/29/20 07:55 Bisacodyl (Dulcolax Suppository) 10 mg DAILYPRN PRN [place] CONSTIPATION 09/21/20 18:15 Calcium Carbonate (Tums) 500 mg BID PRN PO INDIGESTION 09/28/20 12:15 Cefdinir (Omnicef) 300 mg BID PO 09/21/20 21:00 09/28/20 09:01 DC 09/28/20 09:38 Dextrose (Dextrose 50%) 25 ml ASDIRECTED PRN IV SEE LABEL COMMENTS 09/21/20 18:15 Docusate Sodium (Colace) 100 mg BID PO 09/21/20 21:00 09/29/20 07:53 Ferrous Gluconate (Fergon) 324 mg DAILY PO 09/22/20 09:00 09/29/20 07:53 Folic Acid (Folic Acid) 1 mg DAILY PO 09/22/20 09:00 09/29/20 07:54 Gabapentin (Neurontin) 100 mg TID PO 09/27/20 16:00 09/29/20 07:54 Glucagon (Glucagon) 1 mg ASDIRECTED PRN SC SEE LABEL COMMENTS 09/21/20 18:15 Glucose (Glucose) 16 GM ASDIRECTED PRN PO SEE LABEL COMMENTS 09/21/20 18:15 Hydrochlorothiazide (Hydrodiuril) 12.5 mg DAILY PO 09/25/20 09:00 09/29/20 07:54 Hydrochlorothiazide (Hydrodiuril) 12.5 mg DAILY PO 09/26/20 09:00 09/25/20 11:51 DC Hydrocortisone (Hydrocortisone 1% Cream) apply to itchy rash on back TIDP TOP 09/26/20 10:15 09/27/20 09:22 Insulin Human Lispro (HumaLOG INSULIN) SEE PROTOCOL TABLE AC SC 09/22/20 07:30 09/27/20 12:02 Insulin Human Lispro (HumaLOG INSULIN) SEE PROTOCOL TABLE QHS SC 09/21/20 21:00 Lactobacillus Acidophilus (Bacid) 1 ea WMHS PO 09/21/20 21:00 09/29/20 07:53 Magnesium Oxide (Mag-Ox) 200 mg QHS PO 09/21/20 21:00 09/28/20 20:29 Montelukast Sodium (Singulair) 10 mg QHS PO 09/21/20 21:00 09/28/20 20:28 Oxycodone HCl (Roxicodone, Oxyir) 5 mg Q4HP PRN PO PAIN 09/21/20 18:15 09/26/20 21:32 Pantoprazole Sodium (Protonix) 40 mg DAILY PO 09/22/20 09:00 09/29/20 07:53 Polyethylene Glycol (Miralax) 1 pkt DAILY PO 09/29/20 09:00 09/29/20 07:52 Potassium Chloride (Micro-K Extencaps) 10 meq DAILY PO 09/22/20 09:00 09/29/20 07:54 Quetiapine Fumarate (SEROquel) 12.5 mg BID PRN PO agitation 09/21/20 18:15 09/28/20 20:28 Rivaroxaban (Xarelto) 10 mg DAILY@1800 PO 09/21/20 18:15 09/28/20 17:33 Senna (Senokot) 1 tab QHS PO 09/21/20 21:00 09/28/20 20:28 Vitamin D (Vitamin D) 1,000 units DAILY PO 09/22/20 09:00 09/29/20 07:53 PINO GUERIN MD Sep 29, 2020 10:27
[2020-09-29] MEDS ORDERED: BISACODYL 10 MG SUPP PR ONE (10:30)
[2020-09-29 14:00] VITALS: BP 138/78
[2020-09-29] MEDS: RIVAROXABAN 10 MG TAB (XARELTO) PO SCH (17:47)
[2020-09-29 20:00] VITALS: BP 140/83
[2020-09-29] MEDS: SENNA 8.6 MG TAB (SENOKOT) PO SCH (20:33)
[2020-09-29] MEDS: MAGNESIUM OXIDE 400MG TAB (MAG-OX) PO SCH (20:33)
[2020-09-29] MEDS: MONTELUKAST 10 MG TAB PO SCH (20:34)
[2020-09-30 05:08] VITALS: BP 132/76
[2020-09-30] MEDS: IPRATROPIUM 0.5MG/ALBUTEROL 2.5MG INH SOL UD 3ML (DUONEB) NEB SCH ×3 (07:38→19:54)
[2020-09-30] MEDS: LACTOBACILLUS ACIDOPHILUS CAP (BACID) PO SCH ×4 (08:00→20:57)
[2020-09-30] MEDS: MIRALAX *UNIT DOSE* 17GM PACKET PO SCH (09:00)
[2020-09-30] MEDS: FOLIC ACID 1 MG TAB PO SCH (10:46)
[2020-09-30] MEDS: FERROUS GLUCONATE 324 MG TAB PO SCH (10:46)
[2020-09-30] MEDS: DOCUSATE SODIUM 100MG CAPSULE PO SCH ×2 (10:46→20:57)
[2020-09-30] MEDS: GABAPENTIN 100 MG CAP PO SCH ×3 (10:46→20:57)
[2020-09-30] MEDS: PANTOPRAZOLE 40MG TAB (PROTONIX) PO SCH (10:47)
[2020-09-30] MEDS: ACETAMINOPHEN 500 MG TAB PO SCH ×3 (10:47→20:57)
[2020-09-30] MEDS: VITAMIN D 1,000 INTERNATIONAL UNITS TABLET PO SCH (10:47)
[2020-09-30] MEDS: POTASSIUM CHLORIDE 10 MEQ SR TABLET PO SCH (10:47)
[2020-09-30] MEDS: hydroCHLOROthiazide 12.5 MG CAPSULE PO SCH (10:48)
[2020-09-30] MEDS: amLODIPine 5 MG TAB PO SCH (10:50)
[2020-09-30] MEDS: REMEDY PHYTOPLEX Z-GUARD PASTE 113GM TUBE (FROM STOREROOM PRODUCT) TOP SCH ×3 (10:51→20:58)
[2020-09-30 14:00] VITALS: BP 121/73
[2020-09-30] MEDS: RIVAROXABAN 10 MG TAB (XARELTO) PO SCH (17:05)
[2020-09-30 20:00] VITALS: BP 114/64
[2020-09-30] MEDS: MAGNESIUM OXIDE 400MG TAB (MAG-OX) PO SCH (20:57)
[2020-09-30] MEDS: SENNA 8.6 MG TAB (SENOKOT) PO SCH (20:57)
[2020-09-30] MEDS: MONTELUKAST 10 MG TAB PO SCH (20:57)
[2020-10-01 05:14] VITALS: BP 140/77
[2020-10-01] MEDS: IPRATROPIUM 0.5MG/ALBUTEROL 2.5MG INH SOL UD 3ML (DUONEB) NEB SCH ×3 (07:31→20:00)
[2020-10-01] MEDS: VITAMIN D 1,000 INTERNATIONAL UNITS TABLET PO SCH (08:18)
[2020-10-01] MEDS: LACTOBACILLUS ACIDOPHILUS CAP (BACID) PO SCH ×4 (08:18→20:28)
[2020-10-01] MEDS: FERROUS GLUCONATE 324 MG TAB PO SCH (08:18)
[2020-10-01] MEDS: hydroCHLOROthiazide 12.5 MG CAPSULE PO SCH (08:18)
[2020-10-01] MEDS: MIRALAX *UNIT DOSE* 17GM PACKET PO SCH (08:18)
[2020-10-01] MEDS: FOLIC ACID 1 MG TAB PO SCH (08:19)
[2020-10-01] MEDS: ACETAMINOPHEN 500 MG TAB PO SCH ×3 (08:19→20:29)
[2020-10-01] MEDS: POTASSIUM CHLORIDE 10 MEQ SR TABLET PO SCH (08:19)
[2020-10-01] MEDS: DOCUSATE SODIUM 100MG CAPSULE PO SCH ×2 (08:19→20:28)
[2020-10-01] MEDS: PANTOPRAZOLE 40MG TAB (PROTONIX) PO SCH (08:19)
[2020-10-01] MEDS: GABAPENTIN 100 MG CAP PO SCH ×3 (08:19→20:28)
[2020-10-01] MEDS: amLODIPine 5 MG TAB PO SCH (08:21)
[2020-10-01] MEDS: REMEDY PHYTOPLEX Z-GUARD PASTE 113GM TUBE (FROM STOREROOM PRODUCT) TOP SCH ×3 (08:21→20:30)
[2020-10-01 14:00] VITALS: BP 127/75
[2020-10-01] MEDS: RIVAROXABAN 10 MG TAB (XARELTO) PO SCH (17:59)
[2020-10-01 20:00] VITALS: BP 147/80
[2020-10-01] MEDS: SENNA 8.6 MG TAB (SENOKOT) PO SCH (20:28)
[2020-10-01] MEDS: MONTELUKAST 10 MG TAB PO SCH (20:28)
[2020-10-01] MEDS: MAGNESIUM OXIDE 400MG TAB (MAG-OX) PO SCH (20:29)
[2020-10-02 06:01] VITALS: BP 129/78
[2020-10-02 06:34] LABS: BASO % 0.6 % (0.0-1.0); HEMATOCRIT 28.5 % (36.0-47.0); HEMOGLOBIN 8.9 g/dl (12.0-15.5); LYMPH # 1.3 10^3/uL (1.5-5.0); LYMPH % 20.3 % (24.0-44.0); MEAN CORPUSCULAR HEMOGLOBIN 28.4 pg (27.0-33.0); MEAN CORPUSCULAR HGB CONC 31.2 g/dl (32.0-36.5); MEAN CORPUSCULAR VOLUME 91.1 fl (80.0-96.0); MONO # 0.5 10^3/uL (0.0-0.8); MONO % 7.7 % (2.0-8.0); NEUTROPHILS # 4.6 10^3/uL (1.5-8.5); NEUTROPHILS % 70.8 % (36.0-66.0); PLATELET COUNT, AUTOMATED 404 10^3/uL (150-450); RED BLOOD COUNT 3.13 10^6/uL (4.00-5.40); WHITE BLOOD COUNT 6.5 10^3/uL (4.0-10.0)
[2020-10-02 07:02] LABS: BLOOD UREA NITROGEN 17 MG/DL (7-18); CALCIUM LEVEL 8.8 MG/DL (8.8-10.2); CARBON DIOXIDE LEVEL 28 MEQ/L (21-32); CHLORIDE LEVEL 106 MEQ/L (98-107); CREATININE FOR GFR 0.82 MG/DL (0.55-1.30); GLOMERULAR FILTRATION RATE > 60.0 (>39); GLUCOSE, FASTING 95 MG/DL (70-100); POTASSIUM SERUM 4.1 MEQ/L (3.5-5.1); SODIUM LEVEL 140 MEQ/L (136-145)
[2020-10-02] MEDS: IPRATROPIUM 0.5MG/ALBUTEROL 2.5MG INH SOL UD 3ML (DUONEB) NEB SCH ×3 (07:34→20:00)
[2020-10-02] MEDS: LACTOBACILLUS ACIDOPHILUS CAP (BACID) PO SCH ×4 (08:00→21:28)
[2020-10-02] MEDS: MIRALAX *UNIT DOSE* 17GM PACKET PO SCH (09:00)
[2020-10-02] MEDS: DOCUSATE SODIUM 100MG CAPSULE PO SCH ×2 (10:55→21:29)
[2020-10-02] MEDS: PANTOPRAZOLE 40MG TAB (PROTONIX) PO SCH (10:55)
[2020-10-02] MEDS: hydroCHLOROthiazide 12.5 MG CAPSULE PO SCH (10:55)
[2020-10-02] MEDS: amLODIPine 5 MG TAB PO SCH (10:55)
[2020-10-02] MEDS: GABAPENTIN 100 MG CAP PO SCH ×3 (10:56→21:29)
[2020-10-02] MEDS: ACETAMINOPHEN 500 MG TAB PO SCH ×3 (10:56→21:28)
[2020-10-02] MEDS: VITAMIN D 1,000 INTERNATIONAL UNITS TABLET PO SCH (10:56)
[2020-10-02] MEDS: FOLIC ACID 1 MG TAB PO SCH (10:56)
[2020-10-02] MEDS: FERROUS GLUCONATE 324 MG TAB PO SCH (10:56)
[2020-10-02] MEDS: REMEDY PHYTOPLEX Z-GUARD PASTE 113GM TUBE (FROM STOREROOM PRODUCT) TOP SCH ×3 (10:58→21:30)
[2020-10-02] MEDS: oxyBUTYnin 5 MG TAB PO SCH ×2 (10:58→21:29)
[2020-10-02] MEDS: POTASSIUM CHLORIDE 10 MEQ SR TABLET PO SCH (10:59)
[2020-10-02 14:00] VITALS: BP 114/57
[2020-10-02] MEDS: RIVAROXABAN 10 MG TAB (XARELTO) PO SCH (17:12)
[2020-10-02 20:20] VITALS: BP 142/80
[2020-10-02] MEDS: SENNA 8.6 MG TAB (SENOKOT) PO SCH (21:29)
[2020-10-02] MEDS: MONTELUKAST 10 MG TAB PO SCH (21:29)
[2020-10-02] MEDS: MAGNESIUM OXIDE 400MG TAB (MAG-OX) PO SCH (21:29)
[2020-10-02] MEDS: HYDROCORTISONE 1% CREAM 30 GM TOP SCH (21:37)
[2020-10-03 06:01] VITALS: BP 136/80
[2020-10-03] MEDS: IPRATROPIUM 0.5MG/ALBUTEROL 2.5MG INH SOL UD 3ML (DUONEB) NEB SCH ×3 (07:38→20:00)
[2020-10-03] MEDS: VITAMIN D 1,000 INTERNATIONAL UNITS TABLET PO SCH (08:25)
[2020-10-03] MEDS: PANTOPRAZOLE 40MG TAB (PROTONIX) PO SCH (08:25)
[2020-10-03] MEDS: POTASSIUM CHLORIDE 10 MEQ SR TABLET PO SCH (08:25)
[2020-10-03] MEDS: FERROUS GLUCONATE 324 MG TAB PO SCH (08:27)
[2020-10-03] MEDS: FOLIC ACID 1 MG TAB PO SCH (08:27)
[2020-10-03] MEDS: LACTOBACILLUS ACIDOPHILUS CAP (BACID) PO SCH ×4 (08:27→21:10)
[2020-10-03] MEDS: amLODIPine 5 MG TAB PO SCH (08:27)
[2020-10-03] MEDS: oxyBUTYnin 5 MG TAB PO SCH ×2 (08:27→21:19)
[2020-10-03] MEDS: hydroCHLOROthiazide 12.5 MG CAPSULE PO SCH (08:27)
[2020-10-03] MEDS: GABAPENTIN 100 MG CAP PO SCH ×3 (08:27→21:11)
[2020-10-03] MEDS: ACETAMINOPHEN 500 MG TAB PO SCH ×3 (08:27→21:10)
[2020-10-03] MEDS: MIRALAX *UNIT DOSE* 17GM PACKET PO SCH (08:30)
[2020-10-03] MEDS: DOCUSATE SODIUM 100MG CAPSULE PO SCH ×2 (08:30→21:10)
[2020-10-03] MEDS: REMEDY PHYTOPLEX Z-GUARD PASTE 113GM TUBE (FROM STOREROOM PRODUCT) TOP SCH ×3 (08:31→21:19)
[2020-10-03] MEDS ORDERED: HYDR12CA PO (12:00)
[2020-10-03] MEDS ORDERED: AMLO1TAB24 PO (12:00)
[2020-10-03] MEDS ORDERED: XARE10TA PO (12:00)
[2020-10-03] MEDS ORDERED: MONT10TA10 PO (12:00)
[2020-10-03] MEDS ORDERED: GABA-1171 PO (12:00)
[2020-10-03] MEDS ORDERED: FERR32TA PO (12:02)
[2020-10-03] MEDS ORDERED: RISATAB3 PO (12:02)
[2020-10-03] MEDS ORDERED: FOLI1TAB11 PO (12:02)
[2020-10-03] MEDS ORDERED: KLOR10TA76 PO (12:02)
--- NOTE | 2020-10-03 12:09 | IPNPDOC ---
PM&R Progress Note DATE OF SERVICE: Oct 03, 2020 Tourist Cabin Keeper Progress Note Subjective: Patient reporting she thinks her bladder has fallen and that is why she has had urge incontinence for years. She states she is not interested in seeing a urologist. REVIEW OF SYSTEMS: The following is a completed review of systems and has been reviewed. Review of systems otherwise unremarkable. PAIN: Patient self reports neck stiffness and left hip pain EYES: +low vision EARS, NOSE, & THROAT: +[place] CARDIOVASCULAR: Denies chest pain or palpitations PULMONARY: Denies shortness of breath. GASTROINTESTINAL: +constipated GENITOURINARY:+incontinence MUSCULOSKELETAL: left hip fracture NEUROLOGICAL: no tremor or paresis HEMATOLOGICAL: no easy bruising SKIN: left hip incision PSYCHIATRIC: Unremarkable All other review of systems found to be negative. PHYSICAL EXAMINATION: VITAL SIGNS: Please see below. GENERAL: Pleasant and cooperative. No acute distress. HEENT: PERRL. Extraocular movements intact. Clear conjunctiva CARDIOVASCULAR: Regular rate and rhythm. No murmurs, rubs, or gallops LUNGS: Clear to auscultation bilaterally. No wheezes. No rhonchi ABDOMEN: Soft, nontender, nondistended. Positive bowel sounds. Normal active bowel sounds NEUROLOGICAL: difficult to assess orientation as patient very [place]. Cranial nerves II through XII grossly intact. Sensation grossly intact EXTREMITIES: 5\5 strength bilateral upper extremities. >\5 strength right lower extremity. right LE 5/5, Left LE 5/5 ankle DF/EHL/PF (limited due to recent surgery SKIN: left hip dermabond, no induration ASSESSMENT:80-year-old F with past medical history of who presents status post left hip fracture PLAN: 1. Rehab- PT/OT advancce mobility and ADLs, strengthen/stretch/maintain ROM all 4l limbs, ambulating with RW 2. ortho- s/p left hip fracture and hemiarthroplasty- WBAT 3. cardiac- hx of htn, monitor off BP meds for now, medicine consulted to assist in overall management 4. Resp- Hx of smoking, c/u monteleukast and DUonebs, monitor for infection 5. Hypomagenesemia- c/u oral supplement and oral potassium 6. - s/p course of cefdinir for e coli UTI -started oxybutynin for chronic urge incontinence, patient should resume vesicare when she returns home, patient agrees to discuss possible urological work-up with PMD 7. psych- seroquel prn for episodes of delirium 8. Pain- tylenol and oxycodone, c/u gabapentin 100mg TID 9. DVT ppx- xarelto 10. GI ppx- protonix -constipation resolved 11. Endo- hx of DM c/u ISS and consistent carb diet, well controlled off home metformin 12. Dispo- 10-04-20 to home, progressing towards goals Allergies Coded Allergies: No Known Allergies (Unverified , 09/18/20) Vital Signs Vital Signs Date Time Temp Pulse Resp B/P (MAP) Pulse Ox O2 Delivery O2 Flow Rate FiO2 10/03/20 08:27 70 130/80 10/03/20 06:01 98.9 18 98 Room Air Current Medications Current Medications Current Medications Medications (Trade) Dose Ordered Sig/Nahid Route PRN Reason Start Time Stop Time Status Last Admin Dose Admin Acetaminophen (Tylenol Tab) 1,000 mg TID PO 09/21/20 21:00 10/03/20 08:27 Albuterol/ Ipratropium (Duoneb (Ipr 0.5mg/Alb 2.5mg)) 3 ml RTID NEB 09/21/20 20:00 09/30/20 07:38 Amlodipine Besylate (Norvasc) 5 mg DAILY PO 09/26/20 09:00 10/03/20 08:27 Bisacodyl (Dulcolax Suppository) 10 mg DAILYPRN PRN [place] CONSTIPATION 09/21/20 18:15 Calcium Carbonate (Tums) 500 mg BID PRN PO INDIGESTION 09/28/20 12:15 Cefdinir (Omnicef) 300 mg BID PO 09/21/20 21:00 09/28/20 09:01 DC 09/28/20 09:38 Dextrose (Dextrose 50%) 25 ml ASDIRECTED PRN IV SEE LABEL COMMENTS 09/21/20 18:15 09/29/20 10:27 DC Docusate Sodium (Colace) 100 mg BID PO 09/21/20 21:00 10/02/20 21:29 Ferrous Gluconate (Fergon) 324 mg DAILY PO 09/22/20 09:00 10/03/20 08:27 Folic Acid (Folic Acid) 1 mg DAILY PO 09/22/20 09:00 10/03/20 08:27 Gabapentin (Neurontin) 100 mg TID PO 09/27/20 16:00 10/03/20 08:27 Glucagon (Glucagon) 1 mg ASDIRECTED PRN SC SEE LABEL COMMENTS 09/21/20 18:15 09/29/20 10:27 DC Glucose (Glucose) 16 GM ASDIRECTED PRN PO SEE LABEL COMMENTS 09/21/20 18:15 09/29/20 10:27 DC Hydrochlorothiazide (Hydrodiuril) 12.5 mg DAILY PO 09/25/20 09:00 10/03/20 08:27 Hydrochlorothiazide (Hydrodiuril) 12.5 mg DAILY PO 09/26/20 09:00 09/25/20 11:51 DC Hydrocortisone (Hydrocortisone 1% Cream) apply to itchy rash on back TIDP TOP 09/26/20 10:15 10/02/20 21:37 Insulin Human Lispro (HumaLOG INSULIN) SEE PROTOCOL TABLE AC SC 09/22/20 07:30 09/29/20 10:27 DC 09/27/20 12:02 Insulin Human Lispro (HumaLOG INSULIN) SEE PROTOCOL TABLE QHS SC 09/21/20 21:00 09/29/20 10:27 DC Lactobacillus Acidophilus (Bacid) 1 ea WMHS PO 09/21/20 21:00 10/03/20 11:47 Magnesium Oxide (Mag-Ox) 200 mg QHS PO 09/21/20 21:00 10/02/20 21:29 Montelukast Sodium (Singulair) 10 mg QHS PO 09/21/20 21:00 10/02/20 21:29 Oxybutynin Chloride (Ditropan) 5 mg BID PO 10/02/20 09:00 10/03/20 08:27 Oxycodone HCl (Roxicodone, Oxyir) 5 mg Q4HP PRN PO PAIN 09/21/20 18:15 09/26/20 21:32 Pantoprazole Sodium (Protonix) 40 mg DAILY PO 09/22/20 09:00 10/03/20 08:25 Polyethylene Glycol (Miralax) 1 pkt DAILY PO 09/29/20 09:00 10/01/20 08:18 Potassium Chloride (Micro-K Extencaps) 10 meq DAILY PO 09/22/20 09:00 10/03/20 08:25 Quetiapine Fumarate (SEROquel) 12.5 mg BID PRN PO agitation 09/21/20 18:15 09/28/20 20:28 Rivaroxaban (Xarelto) 10 mg DAILY@1800 PO 09/21/20 18:15 10/02/20 17:12 Senna (Senokot) 1 tab QHS PO 09/21/20 21:00 10/02/20 21:29 Vitamin D (Vitamin D) 1,000 units DAILY PO 09/22/20 09:00 10/03/20 08:25 PINO GUERIN MD Oct 03, 2020 12:09
--- NOTE | 2020-10-03 14:55 | IPNPDOC ---
Text Note Date of Service The patient was seen on 10/03/20. NOTE Seen and examined at bedside, component of impaired hearing. Denies pain, denies fevers, chills. PHYSICAL EXAMINATION: VITAL SIGNS: please see below General: frail, elderly HEENT: PERRLA, poor eyesight, poor hearing Neck: supple, normal ROM, no JVD Respiratory: lungs CTAB, no wheeze, no rales, no crackles CVS: RRR, normal S1, S2, no murmurs Abdo: soft, no masses, no hepatosplenomegaly, BS+, no rebound tenderness Extremities: no edema, pulses 2+ MSK: no joint deformities, normal ROM Neuro: no focal neuro deficits, moving all 4 extremities, CN2-12 intact. ASSESSMENT AND PLAN: 80F with PMHx including diabetes, hyperlipidemia, hypomagnesemia, hypertension, urinary incontinence/spasms?, Increased forgetfulness questionable age-related memory loss admitted for displaced left femoral neck fracture s/p L hip hemiarthroplasty. Admitted to ARU for ongoing rehab needs. #Displaced left femoral neck fracture s/p fall on ice - s/p left hip hemiarthroplasty - WBAT - ARU for ongoing PT needs - on dvt ppx with xarelto - c/w incentive spirometer - pain control with oxocodone - bowel regimen #UTI - Finished course with cefdinir for ecoli UTI #confusion with delirium - baseline dementia, possible worsened with metabolic encephalopathy from UTI and surgery - Cont prn seroquel #Hx of smoking, asthma vs copd - singulair - duonebs #HTN - BP well controlled off meds #DM type II - ISS, FSBS AC and HS - hypoglycemic precautions #Tobacco use -Nicotine patch #Urinary incontinence vs. urinary spasm? -C/w home med #DVT px -SCD, teds Disposition as per primary VS,Fishbone, I+O VS, Fishbone, I+O Vital Signs Date Time Temp Pulse Resp B/P (MAP) Pulse Ox O2 Delivery O2 Flow Rate FiO2 10/03/20 14:00 98.7 71 18 99 Room Air 10/03/20 08:27 130/80 I&O- Last 24 Hours up to 6 AM 10/03/20 06:00 Intake Total 945 ml Output Total 150 ml Balance 795 ml RUBIA WILKERSON MD Oct 03, 2020 14:55
[2020-10-03] MEDS: RIVAROXABAN 10 MG TAB (XARELTO) PO SCH (17:30)
[2020-10-03 21:00] VITALS: BP 134/84
[2020-10-03] MEDS: SENNA 8.6 MG TAB (SENOKOT) PO SCH (21:13)
[2020-10-03] MEDS: MONTELUKAST 10 MG TAB PO SCH (21:13)
[2020-10-03] MEDS: MAGNESIUM OXIDE 400MG TAB (MAG-OX) PO SCH (21:13)
[2020-10-04 06:00] VITALS: BP 139/84
[2020-10-04] MEDS: IPRATROPIUM 0.5MG/ALBUTEROL 2.5MG INH SOL UD 3ML (DUONEB) NEB SCH (07:58)
[2020-10-04] MEDS: REMEDY PHYTOPLEX Z-GUARD PASTE 113GM TUBE (FROM STOREROOM PRODUCT) TOP SCH (09:00)
[2020-10-04] MEDS: MIRALAX *UNIT DOSE* 17GM PACKET PO SCH (09:00)
[2020-10-04] MEDS: POTASSIUM CHLORIDE 10 MEQ SR TABLET PO SCH (09:33)
[2020-10-04] MEDS: FOLIC ACID 1 MG TAB PO SCH (09:33)
[2020-10-04] MEDS: LACTOBACILLUS ACIDOPHILUS CAP (BACID) PO SCH (09:34)
[2020-10-04] MEDS: hydroCHLOROthiazide 12.5 MG CAPSULE PO SCH (09:34)
[2020-10-04 09:35] VITALS: BP 139/84
[2020-10-04] MEDS: amLODIPine 5 MG TAB PO SCH (09:35)
[2020-10-04] MEDS: oxyBUTYnin 5 MG TAB PO SCH (09:35)
[2020-10-04] MEDS: ACETAMINOPHEN 500 MG TAB PO SCH (09:36)
[2020-10-04] MEDS: PANTOPRAZOLE 40MG TAB (PROTONIX) PO SCH (09:37)
[2020-10-04] MEDS: FERROUS GLUCONATE 324 MG TAB PO SCH (09:37)
[2020-10-04] MEDS: VITAMIN D 1,000 INTERNATIONAL UNITS TABLET PO SCH (09:38)
[2020-10-04] MEDS: GABAPENTIN 100 MG CAP PO SCH (09:38)
[2020-10-04] MEDS: DOCUSATE SODIUM 100MG CAPSULE PO SCH (09:38)
--- NOTE | 2020-10-04 21:48 | PMRDS ---
NAME: ADAIR HERNANDEZ [facility] WT ID#: [id number] : [id number] JOB: [id number] AGNIESZKA: 10/04/2020 ACCT: [id number] DOCTOR: PINO GUERIN MD PMR DISCHARGE SUMMARY DATE OF ADMISSION: 09/21/2020 DATE OF DISCHARGE: 10/04/2020 CHIEF COMPLAINT/DISCHARGE DIAGNOSIS: Left hip fracture. HISTORY OF PRESENT ILLNESS: This is a 80-year-old female with a past medical history of diabetes, hypertension, hypomagnesemia, urinary incontinence, possible dementia, hard of hearing despite use of hearing aids, low vision, who fell at home and presented to [facility] ED on 09/19/2020 where she was diagnosed with a left femoral fracture. She was cleared by medicine, evaluated by orthopedics who performed the left hip hemiarthroplasty on 09/19/2020 without immediate postop complications. She was diagnosed with an E. Coli UTI and started on oral antibiotics, had difficulty with pain control and limitations in therapy due to recent surgery and having very low hearing. She was deemed medically appropriate for discharge to ARU on 09/21/2020 for mobility and ADLs impairments. PAST MEDICAL HISTORY: As per HPI. HOSPITAL COURSE: Patient was admitted and enrolled in a comprehensive PT/OT program. She received 24-hour nursing supervision and weekly team meetings were held to discuss her progress. Patient was monitored off of blood pressure medications initially during her hospital course, however, was started on Amlodipine and Hydrochlorothiazide for elevated blood pressures with overall improvements. She had difficulty with pain control, for which she was started on low dose Gabapentin in addition to Oxycodone, which she took infrequently for her pain. She continued to complain of urinary urgency and was unable to take her home medication VESIcare as was not on hospital formulary and eventually was placed on Oxybutynin with slight improvement in her incontinence. She made steady gains in therapy and was deemed medically and functionally stable to return home. DISCHARGE MEDICATIONS: As per instructions. FUNCTIONAL HISTORY: On discharge, patient was modified independent for bed mobility, ambulation, dressing, toileting. Thank you for this referral.
== END 2020-10-04 12:45 | disposition home health service (06) | DRG 560 ==
LOC: M PM&R 15:35
PROVIDERS: ADMIT Physical Medicine & Rehabilitation; ATTEND Physical Medicine & Rehabilitation
DX: S72.002D Fracture of unspecified part of neck of left femur, subsequent encounter for closed fracture with routine healing (principal); N39.0 Urinary tract infection, site not specified; E11.9 Type 2 diabetes mellitus without complications; I10 Essential (primary) hypertension; E83.42 Hypomagnesemia; R32 Unspecified urinary incontinence; F03.90 Unspecified dementia, unspecified severity, without behavioral disturbance, psychotic disturbance, mood disturbance, and anxiety; H91.93 Unspecified hearing loss, bilateral; W19.XXXD Unspecified fall, subsequent encounter; Y92.009 Unspecified place in unspecified non-institutional (private) residence as the place of occurrence of the external cause; Z74.09 Other reduced mobility; Z74.1 Need for assistance with personal care; Z79.01 Long term (current) use of anticoagulants; Z79.84 Long term (current) use of oral hypoglycemic drugs; Z79.899 Other long term (current) drug therapy; E78.5 Hyperlipidemia, unspecified; F17.200 Nicotine dependence, unspecified, uncomplicated

== ENCOUNTER → 2020-10-06 | Outpatient (REF) | payer MEDICARE, OTHER ==
[~2020-10-06] MED LIST changes: +AMLO1TAB24 PO; +FERR32TA PO; +FOLI1TAB11 PO; +GABA-1171 PO; +KLOR10TA76 PO; +RISATAB3 PO
[2020-10-06 14:03] LABS: PERCENT SATURATION 11.2 % (13.2-45.0)
== END ==
LOC: M LAB REF 12:44
PROVIDERS: ATTEND Internal Medicine
DX: D50.9 Iron deficiency anemia, unspecified (principal)

== ENCOUNTER → 2020-10-13 | Outpatient (CLI) | payer MEDICARE, OTHER ==
--- NOTE | 2020-10-13 13:24 | REP ---
INDICATION: LEFT HIP PAIN. COMPARISON: Comparison radiographs are from September 18, 2020.. TECHNIQUE: AP and frogleg views. FINDINGS: AP and frogleg views of the left hip demonstrate a left hip hemiarthroplasty in good position. A a small chip fracture of the lesser trochanter is suspected. IMPRESSION: Left hip hemiarthroplasty in place. <Electronically signed by Dima Patel > 10/13/20 [id number]
== END ==
LOC: M SOG 08:46
PROVIDERS: ATTEND Orthopaedic Surgery Sports Medicine
DX: Z47.89 Encounter for other orthopedic aftercare (principal); Z96.642 Presence of left artificial hip joint

== ENCOUNTER → 2020-10-23 | Outpatient (REF) | payer MEDICARE, OTHER ==
[2020-10-23 14:19] LABS: APPEARANCE, URINE CLOUDY (CLEAR); BACTERIA, URINE AUTO 1+ (NEGATIVE); BILIRUBIN, URINE AUTO NEGATIVE (NEGATIVE); BLOOD, URINE BLOOD 1+ (NEGATIVE); COLOR, URINE YELLOW (YELLOW); GLUCOSE, URINE (UA) AUTO NEGATIVE (NEGATIVE); KETONE, URINE AUTO NEGATIVE (NEGATIVE); LEUKOCYTE ESTERASE, URINE AUTO 3+ (NEGATIVE); NITRITE, URINE AUTO POSITIVE (NEGATIVE); PROTEIN, URINE AUTO 1+ mg/dL (NEGATIVE); RBC, URINE AUTO 4 /HPF (0-3); SPECIFIC GRAVITY URINE AUTO 1.014 (1.002-1.035); SQUAMOUS EPITHELIAL CELL UR AU 0 /HPF (0-6); UROBILINOGEN, URINE AUTO 0.2 mg/dL (0.0-2.0); WBC, URINE AUTO TNTC /HPF (0-3)
== END ==
LOC: M SMT 13:48
PROVIDERS: ATTEND Nurse Practitioner Family
DX: R32 Unspecified urinary incontinence (principal)
CPT/HCPCS: 81001; 87088; 87186; G0463

== ENCOUNTER → 2020-11-10 | Outpatient (CLI) | payer MEDICARE, OTHER ==
--- NOTE | 2020-11-10 13:18 | REP ---
INDICATION: AFTERCARE. COMPARISON: Comparison left hip radiographs October 13, 2020.. TECHNIQUE: AP and frogleg views. FINDINGS: A left hemiarthroplasty is again noted in place. No change in position. There appears to be some heterotopic bone formation superior lung and lateral. Vascular calcification is observed. There is diffuse osteopenia. IMPRESSION: Status post left hemiarthroplasty. No change in position. <Electronically signed by Dima Patel > 11/10/20 [id number]
== END ==
LOC: M SOG 10:11
PROVIDERS: ATTEND Orthopaedic Surgery Sports Medicine
DX: Z47.89 Encounter for other orthopedic aftercare (principal); Z96.642 Presence of left artificial hip joint

== ENCOUNTER → 2020-12-22 | Outpatient (CLI) | payer MEDICARE, OTHER ==
--- NOTE | 2020-12-22 12:39 | REP ---
INDICATION: ORTHO AFTERCARE. COMPARISON: 11/10/2020. TECHNIQUE: Two views left hip. FINDINGS: Left hemiarthroplasty appears unchanged. No acute fracture or dislocation. Mild heterotopic calcifications are again seen above the greater trochanter. Medial vascular calcifications are again noted. IMPRESSION: Stable exam. <Electronically signed by Chad Keenan > 12/22/20 [id number]
--- NOTE | 2020-12-22 12:42 | REP ---
INDICATION: ORTHO AFTERCARE. COMPARISON: None. TECHNIQUE: Six views right knee. FINDINGS: There is no acute fracture or dislocation. There is mild diffuse joint space narrowing and chondrocalcinosis. There is mild subchondral sclerosis. There is mild spurring of the lateral tibial plateau. Moderate vascular calcifications are seen posteriorly. I suspect a small suprapatellar effusion. IMPRESSION: Degenerative changes as above. <Electronically signed by Chad Keenan > 12/22/20 [id number]
== END ==
LOC: M SOG 10:40
PROVIDERS: ATTEND Orthopaedic Surgery Sports Medicine
DX: Z47.89 Encounter for other orthopedic aftercare (principal); M17.11 Unilateral primary osteoarthritis, right knee

== ENCOUNTER → 2020-12-27 | Outpatient (REF) | payer MEDICARE, OTHER ==
[2020-12-28 13:41] LABS: PERCENT SATURATION 19.3 % (13.2-45.0)
== END ==
LOC: M LAB REF 12:20
PROVIDERS: ATTEND Internal Medicine
DX: D50.9 Iron deficiency anemia, unspecified (principal)

== ENCOUNTER → 2021-06-29 | Outpatient (REF) | payer MEDICARE, OTHER ==
[~2021-06-29] MED LIST changes: -KLOR10TA76 PO; +POTA-136 PO
== END ==
LOC: M LAB REF 11:00
PROVIDERS: ATTEND Internal Medicine
DX: D50.9 Iron deficiency anemia, unspecified (principal)

== ENCOUNTER → 2021-09-24 | Outpatient (CLI) | payer MEDICARE, BC, OTHER ==
[~2021-09-24] MED LIST changes: -CEFD1CAP8 PO; +CEFD300C41 PO; -MONT10TA10 PO; +MONT10TA97 PO
== END ==
LOC: M RAD 09:44
PROVIDERS: ATTEND Internal Medicine
DX: F17.210 Nicotine dependence, cigarettes, uncomplicated (principal)

== ENCOUNTER → 2022-01-22 | Outpatient (CLI) | payer MEDICARE, BC, OTHER | LOC: M RAD 12:32 | PROVIDERS: ATTEND Internal Medicine | DX: R22.42 Localized swelling, mass and lump, left lower limb (principal) ==

== ENCOUNTER → 2022-01-22 | Outpatient (REF) | payer MEDICARE, BC, OTHER | LOC: M LAB REF 16:27 | PROVIDERS: ATTEND Internal Medicine | DX: N39.0 Urinary tract infection, site not specified (principal) ==

== ENCOUNTER → 2022-08-07 | Outpatient (REF) | payer MEDICARE, OTHER ==
[2022-08-07 14:49] LABS: APPEARANCE, URINE MANUAL CLEAR (CLEAR); COLOR, URINE MANUAL YELLOW (YELLOW)
[2022-08-07 14:52] LABS: BILIRUBIN, URINE MANUAL NEGATIVE (NEGATIVE); BLOOD URINE MANUAL NEGATIVE (NEGATIVE); GLUCOSE, URINE (UA) MANUAL NEGATIVE (NEGATIVE); KETONE, URINE MANUAL NEGATIVE (NEGATIVE); LEUKOCYTE ESTERASE, URINE MAN TRACE (NEGATIVE); NITRITE, URINE MANUAL NEGATIVE (NEGATIVE); PROTEIN, URINE MANUAL TRACE mg/dL (NEGATIVE); UROBILINOGEN, URINE MANUAL NORMAL (NORMAL)
[2022-08-07 15:19] LABS: RBC, URINE 0-1 /hpf (0-3)
[2022-08-07 15:20] LABS: BACTERIA, URINE SMALL AMOUNT; HYALINE CAST, URINE NONE SEEN /lpf (0-1); RENAL EPITHELIAL CELLS, URINE SMALL AMOUNT /hpf; SQUAMOUS EPITHELIAL CELL URINE SMALL AMOUNT /hpf (SMALL AMT)
== END ==
LOC: M SMT 12:47
PROVIDERS: ATTEND Nurse Practitioner Women's Health
DX: R32 Unspecified urinary incontinence (principal)

== ENCOUNTER → 2023-07-08 | Outpatient (REF) | payer MEDICARE, OTHER ==
[~2023-07-08] MED LIST changes: -CEFD300C41 PO; +CEFD300C42 PO
[2023-07-08 13:29] LABS: APPEARANCE, URINE CLOUDY (CLEAR); BACTERIA, URINE AUTO 3+ (NEGATIVE); BILIRUBIN, URINE AUTO NEGATIVE (NEGATIVE); BLOOD, URINE BLOOD 1+ (NEGATIVE); COLOR, URINE YELLOW (YELLOW); GLUCOSE, URINE (UA) AUTO 3+ mg/dL (NEGATIVE); KETONE, URINE AUTO NEGATIVE (NEGATIVE); LEUKOCYTE ESTERASE, URINE AUTO 3+ (NEGATIVE); NITRITE, URINE AUTO NEGATIVE (NEGATIVE); PROTEIN, URINE AUTO NEGATIVE (NEGATIVE); RBC, URINE AUTO 10 /HPF (0-3); SPECIFIC GRAVITY URINE AUTO 1.028 (1.002-1.035); SQUAMOUS EPITHELIAL CELL UR AU 1 /HPF (0-6); UROBILINOGEN, URINE AUTO 0.2 mg/dL (0.0-2.0); WBC, URINE AUTO TNTC /HPF (0-3)
== END ==
LOC: M SMT 13:09
PROVIDERS: ATTEND Physician Assistant
DX: R32 Unspecified urinary incontinence (principal)

== ENCOUNTER → 2023-10-07 | Outpatient (REF) | payer MEDICARE, OTHER ==
[~2023-10-07] MED LIST changes: +CEFD1CAP9 PO; -CEFD300C42 PO
== END ==
LOC: M LAB REF 16:02
PROVIDERS: ATTEND Internal Medicine
DX: N39.0 Urinary tract infection, site not specified (principal)

== ENCOUNTER → 2024-04-02 | Outpatient (REF) | payer MEDICARE, OTHER, BC ==
[2024-04-02 17:46] LABS: APPEARANCE, URINE CLOUDY (CLEAR); BACTERIA, URINE AUTO 1+ (NEGATIVE); BILIRUBIN, URINE AUTO NEGATIVE (NEGATIVE); BLOOD, URINE BLOOD 1+ (NEGATIVE); COLOR, URINE YELLOW (YELLOW); GLUCOSE, URINE (UA) AUTO 3+ mg/dL (NEGATIVE); KETONE, URINE AUTO NEGATIVE (NEGATIVE); LEUKOCYTE ESTERASE, URINE AUTO 2+ (NEGATIVE); MUCUS, URINE SMALL (NEGATIVE); NITRITE, URINE AUTO POSITIVE (NEGATIVE); PROTEIN, URINE AUTO NEGATIVE (NEGATIVE); RBC, URINE AUTO 3 /HPF (0-3); SPECIFIC GRAVITY URINE AUTO 1.029 (1.002-1.035); SQUAMOUS EPITHELIAL CELL UR AU 3 /HPF (0-6); UROBILINOGEN, URINE AUTO 0.2 mg/dL (0.0-2.0); WBC, URINE AUTO 176 /HPF (0-3)
== END ==
LOC: M SMT 16:42
PROVIDERS: ATTEND Physician Assistant
DX: R32 Unspecified urinary incontinence (principal)

== ENCOUNTER → 2024-12-24 | Outpatient (REF) | payer MEDICARE, OTHER, BC ==
[2024-12-24 16:21] LABS: APPEARANCE, URINE CLOUDY (CLEAR); BACTERIA, URINE AUTO NEGATIVE (NEGATIVE); BILIRUBIN, URINE AUTO NEGATIVE (NEGATIVE); BLOOD, URINE BLOOD 1+ (NEGATIVE); COLOR, URINE YELLOW (YELLOW); GLUCOSE, URINE (UA) AUTO 3+ mg/dL (NEGATIVE); KETONE, URINE AUTO NEGATIVE (NEGATIVE); LEUKOCYTE ESTERASE, URINE AUTO 3+ (NEGATIVE); NITRITE, URINE AUTO NEGATIVE (NEGATIVE); PROTEIN, URINE AUTO NEGATIVE (NEGATIVE); RBC, URINE AUTO 8 /HPF (0-3); SPECIFIC GRAVITY URINE AUTO 1.017 (1.002-1.035); SQUAMOUS EPITHELIAL CELL UR AU 1 /HPF (0-6); UROBILINOGEN, URINE AUTO 0.2 mg/dL (0.0-2.0); WBC, URINE AUTO TNTC /HPF (0-3)
== END ==
LOC: M SMT 15:18
PROVIDERS: ATTEND Physician Assistant
DX: R39.9 Unspecified symptoms and signs involving the genitourinary system (principal)

== ENCOUNTER → 2025-04-04 | Outpatient (REF) | payer MEDICARE, OTHER ==
[~2025-04-04] MED LIST changes: +HYDR12.510 PO; -HYDR12CA PO
[2025-04-04 13:51] LABS: APPEARANCE, URINE CLOUDY (CLEAR); BACTERIA, URINE AUTO 2+ (NEGATIVE); BILIRUBIN, URINE AUTO NEGATIVE (NEGATIVE); BLOOD, URINE BLOOD 1+ (NEGATIVE); GLUCOSE, URINE (UA) AUTO 3+ mg/dL (NEGATIVE); KETONE, URINE AUTO NEGATIVE (NEGATIVE); LEUKOCYTE ESTERASE, URINE AUTO 3+ (NEGATIVE); NITRITE, URINE AUTO POSITIVE (NEGATIVE); PROTEIN, URINE AUTO NEGATIVE (NEGATIVE); RBC, URINE AUTO 7 /HPF (0-3); SPECIFIC GRAVITY URINE AUTO 1.020 (1.002-1.035); SQUAMOUS EPITHELIAL CELL UR AU 1 /HPF (0-6); UROBILINOGEN, URINE AUTO 0.2 mg/dL (0.0-2.0); WBC, URINE AUTO TNTC /HPF (0-3)
== END ==
LOC: M SMT 13:04
PROVIDERS: ATTEND Physician Assistant
DX: R32 Unspecified urinary incontinence (principal)

== ENCOUNTER → 2025-04-28 | Outpatient (REF) | payer OTHER, MEDICARE ==
[2025-04-28 19:05] LABS: APPEARANCE, URINE HAZY (CLEAR); BACTERIA, URINE AUTO 3+ (NEGATIVE); BILIRUBIN, URINE AUTO NEGATIVE (NEGATIVE); BLOOD, URINE BLOOD NEGATIVE (NEGATIVE); GLUCOSE, URINE (UA) AUTO 3+ mg/dL (NEGATIVE); KETONE, URINE AUTO NEGATIVE (NEGATIVE); LEUKOCYTE ESTERASE, URINE AUTO 3+ (NEGATIVE); MUCUS, URINE MODERATE (NEGATIVE); NITRITE, URINE AUTO POSITIVE (NEGATIVE); PROTEIN, URINE AUTO NEGATIVE (NEGATIVE); RBC, URINE AUTO 3 /HPF (0-3); SPECIFIC GRAVITY URINE AUTO 1.013 (1.002-1.035); SQUAMOUS EPITHELIAL CELL UR AU 1 /HPF (0-6); UROBILINOGEN, URINE AUTO 0.2 mg/dL (0.0-2.0); WBC, URINE AUTO 68 /HPF (0-3)
== END ==
LOC: M SMT 16:54
PROVIDERS: ATTEND Physician Assistant
DX: R39.9 Unspecified symptoms and signs involving the genitourinary system (principal)

== ENCOUNTER → 2025-06-08 | Outpatient (REF) | payer OTHER, MEDICARE ==
[2025-06-08 15:45] LABS: APPEARANCE, URINE CLEAR (CLEAR); BACTERIA, URINE AUTO NEGATIVE (NEGATIVE); BILIRUBIN, URINE AUTO NEGATIVE (NEGATIVE); BLOOD, URINE BLOOD NEGATIVE (NEGATIVE); GLUCOSE, URINE (UA) AUTO 3+ mg/dL (NEGATIVE); KETONE, URINE AUTO NEGATIVE (NEGATIVE); LEUKOCYTE ESTERASE, URINE AUTO NEGATIVE (NEGATIVE); MUCUS, URINE SMALL (NEGATIVE); NITRITE, URINE AUTO NEGATIVE (NEGATIVE); PROTEIN, URINE AUTO NEGATIVE (NEGATIVE); RBC, URINE AUTO 0 /HPF (0-3); SPECIFIC GRAVITY URINE AUTO 1.012 (1.002-1.035); SQUAMOUS EPITHELIAL CELL UR AU 0 /HPF (0-6); UROBILINOGEN, URINE AUTO 0.2 mg/dL (0.0-2.0); WBC, URINE AUTO 1 /HPF (0-3)
== END ==
LOC: M SMT 15:06
PROVIDERS: ATTEND Physician Assistant
DX: R39.9 Unspecified symptoms and signs involving the genitourinary system (principal)